=== PATIENT | female | born 1985 | race Caucasian/White ===

== ENCOUNTER → 2017-06-26 13:07 | Outpatient (CLI) | payer OTHER, SELFPAY ==
[2017-04-21 09:53] VITALS: BP 105/62; BMI 26.5
[2017-06-26 14:18] LABS: hCG Titer Quant., Serum 13279 mIU/mL (<9 non-preg)
== END ==
PROVIDERS: Nurse Practitioner Women's Health; Family Provider Family Medicine; PCP Family Medicine; Visit Provider Obstetrics & Gynecology
DX: N92.6 Irregular menstruation, unspecified (principal)
CPT/HCPCS: 36415; 84702

== ENCOUNTER → 2017-07-08 10:37 | Outpatient (CLI) | payer OTHER, SELFPAY ==
[2017-07-08 11:06] LABS: Absolute Lymphocyte Count 1.41 X10^3/ul (0.83-4.51); Absolute Neutrophil Count 3.9 X10^3/uL (2.0-7.7); Basophil# 0.02 X10^3/uL; Basophil% 0.3 % (0-1); Eosinophil# 0.03 X10^3/uL; Eosinophils% 0.5 % (0-5); Hematocrit 37.1 % (37-47); Hemoglobin 12.7 g/dl (12.0-15.0); Lymphocyte # 1.41 X10^3/ul (4.0); Lymphocyte % 24.5 % (19-41); Mean Corp Hgb Conc 34.2 g/gl (32-36); Mean Corpuscular Hgb 31.4 pg (27.0-32.0); Mean Corpuscular Volume 91.6 fL (81-99); Mean Platelet Vol. 10.6 fl (6.2-12.0); Monocyte# 0.37 X10^3/uL; Monocyte% 6.4 % (0-10); Neutrophil # 3.89 X10^3/uL (2.7-7.7); Neutrophil % 67.8 % (47-70); Platelet Count 194 K/mm3 (150-450); RBC Distribution Width CV 12.2 % (11.6-14.6); RBC Distribution Width SD 39.8 fl (35.1-43.9); Red Blood Count 4.05 M/mm3 (4.2-5.4); White Blood Count 5.8 K/mm3 (4.4-11.0)
[2017-07-08 11:07] LABS: POSITIVE COUNT NO; POSITIVE DIFFERENTIAL NO; POSITIVE MORPHOLOGY NO
[2017-07-08 12:37] LABS: HIV - WCH Non-Reactive (Nonreactive); Rubella IgG 58.6 IU/mL
[2017-07-08 19:15] LABS: Chlamydia Trachomatis by PCR Negative (Negative); Neisserai gonorrhoeae by PCR Negative (Negative)
[2017-07-08 19:16] LABS: Probe Check PASS; Sample Adequacy Control PASS; Specimen Processing Control PASS
[2017-07-09 17:02] LABS: HEPATITIS B SURFACE AG Negative (Negative)
[2017-07-10 07:08] LABS: Rapid Plasmin Reagin (RPR) NONREACTIVE (NONREACTIVE)
[2017-07-13 13:50] LABS: HPV APTIMA, High Risk Negative (Negative)
== END ==
PROVIDERS: Family Provider Family Medicine; PCP Family Medicine; Visit Provider Obstetrics & Gynecology
DX: Z34.81 Encounter for supervision of other normal pregnancy, first trimester (principal); Z12.4 Encounter for screening for malignant neoplasm of cervix; Z3A.00 Weeks of gestation of pregnancy not specified
CPT/HCPCS: 36415; 85025; 86592; 86703; 86762; 86850; 86900; 87077; 87086; 87088; 87186; 87340; 87491; 87591; 88175; G0145

== ENCOUNTER → 2017-10-08 07:47 | Outpatient (CLI) | payer OTHER, SELFPAY ==
--- NOTE | 2017-10-08 07:49 | US_ITS ---
STUDY: SECOND AND THIRD TRIMESTER OBSTETRICAL ULTRASOUND REASON FOR EXAM: Female, 32 years old. Routine survey. LMP: May 22, 2017. TECHNIQUE: Transabdominal PRIOR ULTRASOUND: None. FINDINGS: There is a single intrauterine fetus. The fetus is in a breech presentation. There is demonstrated cardiac activity with a heart rate of 156 bpm. There is a normal amniotic fluid volume. The largest amniotic fluid pocket measures 5.0 cm x 4.3 cm. The placenta is posterior in location and is not low lying. There are Grade 0 placental changes. The cervix measures 3.4 cm in length. The adnexal regions are not visualized. BIOMETRY: BPD: 4.81 cm: 20 weeks, 4 days HC: 17.92 cm: 20 weeks, 3 days AC: 15.85 cm: 20 weeks, 0 days FL: 3.16 cm: 19 weeks, 2 days CI: 74% FL/BPD: 66% FL/HC: FL/AC: 20% HC/AC: 1.13 age by current US: 20 weeks, 4 days. DINESH by current US: February 21, 2018. Estimated weight: 354 grams, +/- 52 grams, 79 %. Age by LMP: 9 weeks, 6 days. DINESH by LMP: February 26, 2018. ANATOMY: Gender: Female Cranium: Normal lateral ventricles. Normal choroid plexus. Normal cerebellum. Normal cisterna magna. Normal face, nose and lips. Chest: Normal 4-chamber heart. Abdomen/Pelvis: Normal diaphragm. Normal stomach. Normal abdominal wall. Normal cord insertion. Normal 3 vessel cord. Normal kidneys. Normal bladder. Spine: Normal cervical spine. Normal thoracic spine. Normal lumbar spine. Normal sacrum. Extremities: Normal bilateral upper extremities. Normal bilateral lower extremities. US/OB Anatomy Scan IMPRESSION: Single live intrauterine gestation with a mean gestational age of 20 weeks and 4 days. Electronically Signed: Truman Mandujano MD at 9:51 EDT Tel [phone], Service support ,
== END ==
PROVIDERS: Family Provider Family Medicine; PCP Family Medicine; Visit Provider Obstetrics & Gynecology
DX: Z34.81 Encounter for supervision of other normal pregnancy, first trimester (principal)
CPT/HCPCS: 76805

== ENCOUNTER → 2017-12-01 09:03 | Outpatient (CLI) | payer OTHER, SELFPAY ==
[2017-12-01 12:33] LABS: Absolute Lymphocyte Count 0.98 X10^3/ul (0.83-4.51); Absolute Neutrophil Count 4.8 X10^3/uL (2.0-7.7); Basophil# 0.01 X10^3/uL; Basophil% 0.2 % (0-1); Eosinophil# 0.03 X10^3/uL; Eosinophils% 0.5 % (0-5); Glucose Challenge Gest 1H 50g 92 mg/dL (70-140); Hematocrit 36.8 % (37-47); Hemoglobin 12.3 g/dl (12.0-15.0); Lymphocyte # 0.98 X10^3/ul (4.0); Lymphocyte % 15.6 % (19-41); Mean Corp Hgb Conc 33.4 g/gl (32-36); Mean Corpuscular Volume 95.8 fL (81-99); Mean Platelet Vol. 11.4 fl (6.2-12.0); Monocyte% 6.3 % (0-10); Neutrophil # 4.82 X10^3/uL (2.7-7.7); Neutrophil % 76.4 % (47-70); Platelet Count 185 K/mm3 (150-450); RBC Distribution Width SD 43.7 fl (35.1-43.9); Red Blood Count 3.84 M/mm3 (4.2-5.4); White Blood Count 6.3 K/mm3 (4.4-11.0)
[2017-12-01 12:35] LABS: POSITIVE COUNT NO; POSITIVE DIFFERENTIAL NO; POSITIVE MORPHOLOGY NO
== END ==
PROVIDERS: Family Provider Family Medicine; PCP Family Medicine; Visit Provider Nurse Practitioner Women's Health
DX: Z34.90 Encounter for supervision of normal pregnancy, unspecified, unspecified trimester (principal)
CPT/HCPCS: 82950; 85025; 86850; 86900

== ENCOUNTER → 2017-12-01 13:24 | Outpatient (CLI) | payer OTHER, SELFPAY ==
--- NOTE | 2017-12-01 13:27 | BI_ITS ---
MAMMOGRAPHY - UNILATERAL DIAGNOSTIC: RIGHT BREAST REASON FOR EXAM: Female, 32 years old. Swelling and erythema of the right breast. PERTINENT HISTORY: Non-contributory. TECHNIQUE: Digital unilateral breast keerthi (3D mammographic acquisition) in the CC and MLO projections. 2-D mediolateral oblique (MLO) and craniocaudad (CC) views of both breasts were obtained. CAD: Full Field Digital Mammography with Computer Added Detection was performed. COMPARISON: None. Baseline examination. FINDINGS: Breast Composition: The breasts are extremely dense, which lowers the sensitivity of mammography. There are no dominant masses or suspicious calcifications. Thickening of the periareolar skin region. No other significant abnormalities are identified. BI/DIAG MAMM W/CAD, UNILAT IMPRESSION: There is nonspecific thickening of the skin overlying the alveolar region. ASSESSMENT CATEGORY: BIRADS Category 2: Benign. A letter regarding these results will be sent to the patient by the facility within 30 days. Approximately 10% of breast cancers are not detected by mammography. A normal mammogram should not delay biopsy of a clinically suspicious abnormality. Electronically Signed: Truman Mandujano MD at 15:15 EDT Tel [phone], Service support ,
--- NOTE | 2017-12-01 13:27 | US_ITS ---
STUDY: ULTRASOUND BREAST - RIGHT REASON FOR EXAM: Female, 32 years old. Swelling and redness of the right breast. The patient is 28 weeks . TECHNIQUE: Axial and longitudinal images of the RIGHT breast were performed with a high resolution ultrasound transducer. COMPARISON: None. FINDINGS: RIGHT Breast: The lower half of the breast was examined by ultrasound. Dilated ducts are seen. No focal abscess or mass lesion is present. US/Breast Limited Unilateral IMPRESSION: Dilated subareolar ducts. Correlation with mammogram is recommended. ASSESSMENT CATEGORY: BIRADS Category 0: Incomplete. Need additional imaging evaluation. A letter regarding these results will be sent to the patient by the facility within 30 days. Electronically Signed: Truman Mandujano MD at 15:14 EDT Tel [phone], Service support ,
== END ==
PROVIDERS: Family Provider Family Medicine; PCP Family Medicine; Visit Provider Nurse Practitioner Women's Health
DX: N63.10 Unspecified lump in the right breast, unspecified quadrant (principal); N64.4 Mastodynia
CPT/HCPCS: 76642; 77061; 77065; G0279

== ENCOUNTER 2018-02-17 14:50 | Outpatient (CLI) | payer OTHER, SELFPAY ==
[2018-02-17 14:58] VITALS: BMI 33.3
[2018-02-17] MEDS: Lactated Ringers 1,000 ML 125 ML IV (15:10)
[2018-02-17] MEDS: Terbutaline 1 MG/ML Vial 0.25 MG SC (16:09)
--- NOTE | 2018-02-18 06:23 | OP.PCM_ITS ---
Problem List (1) Breech presentation Status: Acute Operative Report Date of Procedure: 02/17/18 Preprocedure diagnosis: Breech presentation Post procedure diagnosis: Vertex presentation Procedure: External cephalic version Surgeon: Marilyn Stone EBL: None Complications: None Anesthesia: None Special medications: Terbutaline Seizure details: The fetus was found to be in breech presentation informed by ultrasound. Patient had an IV in place, normal amniotic fluid, no contraindica tions to a vaginal delivery, and reactive nonstress test prior to the procedure. Patient was placed in the dorsal supine position after the terbutaline was given. Ultrasound gel was applied to the patient's abdomen and using constant upward pressure to elevate the buttocks out of the pelvic inlet constant pressure was applied to the buttocks and to the area behind the back of the neck and head to encourage a forward roll of the fetus. Constant pressure was applied and slowly the infant was converted to a vertex presentation. Bedside ultrasound was used to confirm vertex presentation and reassuring heart rate. Patient was replaced on the NST and monitored to assure reassuring status. No complications.
--- NOTE | 2018-02-20 03:49 | OB.TRI.NOTE ---
- Problem List (1) Breech presentation Status: Acute History of Present Illness Date of Service: 02/18/18 Was patient seen by the physician?: Yes Reason For Visit: VERSION Date of Service: 02/18/18 History of Present Illness: 32-year-old at 38 weeks presents with breech presentation. Patient was consented and counseled on has decided to proceed with external cephalic version for conversion of breech fetus. She denies any vaginal bleeding loss of fluid and admits good movement. She denies any regular contractions. She has had an ultrasound in the office that confirmed a normal JC. Allergies codeine Allergy (Intermediate, Verified 02/17/18 08:39) Swelling vomitting Review of Systems Constitutional: Denies: Fever, Malaise Eyes: Denies: Blurred vision, Vision Change HEENT: Denies: Head Aches, Visual Changes Cardiovascular: Denies: Chest Pain, Palpitations Respiratory: Denies: Cough, Shortness of Breath, Wheezing Gastrointestinal: Denies: Abdominal Pain, Diarrhea, Nausea, Vomiting Genitourinary: Denies: Dysuria, Hematuria Musculoskeletal: Denies: Joint Pain, Muscle pain Skin: Denies: Lesions, Rash Neurological: Denies: Blurred vision, Focal weakness, Headaches Psychiatric: Denies: Anxiety, Depression Endocrine: Denies: Heat/ Cold Intolerance Hematologic/ Lymphatic: Denies: Easy Bruising, Easy Bleeding Physical Exam General: Alert, Cooperative, No apparent distress HEENT: Atraumatic, Normocephalic. Negative for: Thyromegaly, Lymphadenopathy Cardiovascular: Regular rate Lungs: Normal air movement Abdomen: Soft, Non Tender, Gravid Neurological: Deep Tendon Reflexes 2+/4 and Symmetrical, Neuro grossly intact. Negative for: Clonus CELL ATTENDANT HELPER: Normal external genitalia. Negative for: Vulvar lesions Estimated gestational size: Appropriate for gestational size Presentation: Cephalic NST - FHR Rate Baby A Baseline: 140 Variability:: Moderate Accelerations:: 15 x 15 Decelerations:: None NST Reactive:: Yes FHR Category:: Category I Uterine Activity:: No regular Impression/Plan 32-year-old at 38 weeks presents for external cephalic version secondary to breech presentation Risks benefits and alternatives were discussed with the patient regarding external cephalic version and patient wishes to proceed
== END 2018-02-17 18:20 | disposition home or self-care (01) ==
LOC: WPOUT 14:56 → WP 14:57
PROVIDERS: Family Provider Family Medicine; PCP Family Medicine; Referring Provider Obstetrics & Gynecology; Visit Provider Obstetrics & Gynecology
DX: O32.1XX0 Maternal care for breech presentation, not applicable or unspecified (principal); Z3A.00 Weeks of gestation of pregnancy not specified
CPT/HCPCS: 36415; 59025; 59050; 59412; 76815; 86850; 86900; 90384; 96372; 99218; J7120; G0378; J2790

== ENCOUNTER 2018-03-05 06:55 | Inpatient (IN) | payer OTHER, SELFPAY ==
[2018-03-05] MEDS: Lactated Ringers 1,000 ML 50 ML IV ×3 (07:50→16:16)
[2018-03-05] MEDS: Oxytocin 30 units/NS 500 ml 30 UNITS/500 ML IV.SOLN IV (08:00)
[2018-03-05 08:06] VITALS: BMI 33.6
[2018-03-05 08:06] LABS: Hemoglobin 11.7 g/dl (12.0-15.0); Mean Corp Hgb Conc 32.5 g/gl (32-36); Mean Corpuscular Hgb 30.2 pg (27.0-32.0); Mean Platelet Vol. 11.4 fl (6.2-12.0); Platelet Count 191 K/mm3 (150-450); RBC Distribution Width CV 13.2 % (11.6-14.6); RBC Distribution Width SD 43.9 fl (35.1-43.9); Red Blood Count 3.87 M/mm3 (4.2-5.4); White Blood Count 5.2 K/mm3 (4.4-11.0)
[2018-03-05 08:09] LABS: Scan Indicated on CBC? Y/N NO
--- NOTE | 2018-03-05 08:31 | HP.PCM_ITS ---
- Problem List (1) Post-dates Status: Acute History and Physical Date of Admission: 03/05/18 Vital Signs 03/02/18 Height 5 ft 5 in 03/02/18 Weight: 203 lb 03/02/18 Body Mass Index (BMI) 33.7 03/02/18 Blood Pressure 118/74 Intake Visit Reasons: OB Routine Joint Terminal Attack Controller Required: No Is patient in pain?: No Allergies codeine Allergy (Intermediate, Verified 03/02/18 16:06) Swelling Medications vitamin,calcium,jzpldxwr-jckl-zvpik acid tablet 1 tab PO QDAY 04/21/17 [History Confirmed 03/02/18] Last Menstral Period: 04/21/17 Zika: Zika virus screening: Negative : No PFSH PFSH Family History Grandmother Diabetes Social History number of children: 1 current occupational status: employed current occupation: [employer] current occupational exposures/hazards: No Smoking Status: Never smoker second hand exposure: No alcohol intake: never substance use type: does not use caffeine: No what type of physical activity do you participate in: none seatbelt use: always do you feel safe at home: Yes additional social history: [facility] Pregancy History 2 Elective abortions Hx Para 1 Spontaneous abortions Hx # Term Pregnancies 1 Ectopic pregnancies Hx # Pregnancies Multiple births # of living children 1 Past Pregnancies Del. Date Name GA/Weeks Outcome Route Bth Weight Gen Labor Lgth Anesthesia Del [facility] Provider FOB 11/29/14 Ronald 42 live - full term 7 pounds 6 ounc Male epidural NE HPI OB Routine: Details: HELEN HERMOSILLO is a 32 year old who presents for routine OB visit. OB Visit DINESH Calculator Estimated Delivery Date 02/26/18 Based on Ultrasound Date 07/08/17 Current WG 41w 0d Number 1 Expected Delivery Route/Plan Specific Issue/Plans flu vaccine declined minichart given: yes tdap vaccine: given rhogam: given LARC form signed: declines labor support person: Bin pain management: epidural-did not take effect well last delivery cut cord/dad catch: no :yes PP control planned: mirena special requests: [] Initial Weight: 170 lb Date EGA Weight BP Urine Prot Glucose FHR FuHt Pres Mov CTX Dilation Effaced St Visit Note Provider Comments 08/05/17 10w 5d 170 lb (+0 oz) 94/59 175 no vb some mild cramping 09/02/17 14w 5d 169 lb 4 oz (-12 oz) 107/61 Trace Negative 160 Still Still with nausea. No VB, LOF MH 10/08/17 19w 6d 173 lb 6 oz (+3 lb 6 oz) 85/54 Negative Negative 160 no vb, cramping 10/29/17 22w 6d 179 lb 4 oz (+9 lb 4 oz) 101/59 Negative Negative 153 22 Active absent Doing well. No VB, LOF. 11/19/17 25w 6d 185 lb 2 oz (+15 lb 2 oz) 99/66 145 25 Active absent co right breast enlargement and redness of the right breast, she denies any lumps or other changes, no family history of breast cancer. no discharge 12/01/17 27w 4d 185 lb 6 oz (+15 lb 6 oz) 108/71 Trace Negative 158 27 Active absent Persistent right breast pain and redness. Finished keflex. No VB, LOF. Good FM 12/15/17 29w 4d 189 lb 4 oz (+19 lb 4 oz) 111/64 Negative Negative 153 29 Active absent Breasts still worker helper bilaterally but improved. Some heartburn. NO VB, LOF. 12/28/17 31w 3d 191 lb 4 oz (+21 lb 4 oz) 101/67 Negative Negative 165 33 Cephalic Active absent no vb lof good fm no regular ctx 01/12/18 33w 4d 193 lb 8 oz (+23 lb 8 oz) 122/68 Negative Negative 155 33 Breech Active absent no vb lof good fm no regular ctx 01/26/18 35w 4d 198 lb 2 oz (+28 lb 2 oz) 115/76 Negative Negative 150 35 Cephalic Active absent no vb lof good fm no regular ctx 02/03/18 36w 5d 201 lb 2 oz (+31 lb 2 oz) 96/65 Negative Negative 146 36 Cephalic Active absent No VB, LOF. Doing well. 02/10/18 37w 5d 201 lb (+31 lb) 112/71 Negative Negative 145 38 Cephalic Active absent 1.50 -3 Rare CTX. More pressure. No VB, LOF. 02/17/18 38w 5d 202 lb (+32 lb) 110/70 Negative Negative 140 39 Breech Active absent 1.5 no vb lof good fm no regular ctx 02/25/18 39w 6d 200 lb (+30 lb) 118/68 Negative Negative 150 40 Cephalic Active absent 1.5 no vb lof good fm no regular ctx 03/02/18 40w 4d 203 lb (+33 lb) 118/74 Negative Negative 150 41 Cephalic Active absent no vb lof good fm no regular ctx plan IOL 41 weeks Visit Notes Visit Date: 03/02/18 no vb lof good fm no regular ctx plan IOL 41 weeks Marilyn Stone MD on 03/05/18 Visit Date: 02/25/18 no vb lof good fm no regular ctx Marilyn Stone MD on 02/25/18 Visit Date: 02/17/18 no vb lof good fm no regular ctx Marilyn Stone MD on 02/17/18 Visit Date: 02/10/18 Rare CTX. More pressure. No VB, LOF. AAMIR Miller on 02/10/18 Visit Date: 02/03/18 No VB, LOF. Doing well. AAMIR Miller on 02/03/18 Visit Date: 01/26/18 no vb lof good fm no regular ctx Marilyn Stone MD on 01/26/18 Visit Date: 01/12/18 no vb lof good fm no regular ctx Marilyn Stone MD on 01/12/18 Visit Date: 12/28/17 no vb lof good fm no regular ctx Marilyn Stone MD on 12/28/17 Visit Date: 12/15/17 Breasts still worker helper bilaterally but improved. Some heartburn. NO VB, LOF. AAMIR Miller on 12/15/17 Visit Date: 12/01/17 Persistent right breast pain and redness. Finished keflex. No VB, LOF. Good FM AAMIR Miller on 12/01/17 Visit Date: 11/19/17 co right breast enlargement and redness of the right breast, she denies any lumps or other changes, no family history of breast cancer. no discharge Marilyn Stone MD on 11/19/17 Visit Date: 10/29/17 Doing well. No VB, LOF. GUY MillerC on 10/29/17 Visit Date: 10/08/17 no vb, cramping Marilyn Stone MD on 10/08/17 Visit Date: 09/02/17 Still with nausea. No VB, LOF GUY MillerC on 09/02/17 Still AAMIR Miller on 09/02/17 Visit Date: 08/05/17 no vb some mild cramping Marilyn Stone MD on 08/05/17 ACOG First Trimester First Trimester: Desire for , Alcohol, Tobacco Cessation, Illicit/Recreational Drug/Substance Use, Intimate Partner Violence, Barriers to care, Unstable Housing, Communication Barriers, Environmental/Work Hazards, Anticipated Course of Care, Toxoplasmosis Precations, Use of Any medications, Sexual activity, Exercise, Dental Care, Sauna/Hot tub use, Seat Belt use, Childbirth classes/Hospital facilities, , Travel, Indications for US and Screening for Aneuploidy Second Trimester Second Trimester: Signs and Symptoms of Labor, Selecting a care provider, Reproductive Life Planning, Care Planning, Tobacco Cessation, Depression/Anxiety and Intimate Partner Violence Third Trimester Third Trimester: Pain Management Plans, Labor support person(s), Immediate Larc, Movement Monitoring and Infant Feeding Yes ; discussed Trial of Labor after Counseling or discussed Circumcision preference Diagnostics Diagnostics Labs Blood Type O NEGATIVE 02/17/18 Antibody Screen NEGATIVE 02/17/18 Hct 36.8 % (37-47) L 12/01/17 Hgb 12.3 g/dl (12.0-15.0) 12/01/17 Glucose 1 Hr 50 gm 92 mg/dL (70-140) 12/01/17 Details: HIV: Urine Culture: Sequential Screen: NIPT Screen: ROS Const Reports system reviewed and no additional complaints, except as docu Card Reports system reviewed and no additional complaints, except as docu Resp Reports system reviewed and no additional complaints, except as docu GI Reports system reviewed and no additional complaints, except as docu, Reports nausea Reports system reviewed and no additional complaints, except as docu Musc Reports system reviewed and no additional complaints, except as docu Exam Const General: cooperative, healthy appearing, comfortable, anxious HENMT Head: normal to inspection Nose: external nose normal Face and sinus: normal facial exam Neck Neck: normal visual inspection, full ROM, no lymphadenopathy Thyroid: thyroid normal Chest Chest palpation & inspection: normal inspection of the chest Resp Effort & Inspection: normal respiratory effort GI Inspection: normal to inspection Palpation: soft, other (gravid uterus) Other: vertex and appropriate size for gestational age Other: Cervical Exam: 3 cm Extrem General: pedal edema Results [id number] Office Urine Glucose Negative Last Edit by Vanessa Mckeon on 03/02/18 16:07 Office Urine Protein Negative Last Edit by Vanessa Mckeon on 03/02/18 16:07 Assessment & Plan Problems 1. Post-term O48.0 2. Rh negative status during in third trimester O09.893 given at 28 weeks, given at ECV at 39 3. Group B Streptococcus urinary tract infection affecting in third trimester O23.43 pcn in labor 4. Nausea/vomiting in O21.9 phenergan reglan 5. Encounter for supervision of other normal in third trimester Z34.83 PRR EDD1 girl surprise PC Ronald Bin 6. Encounter for management of intrauterine contraceptive device (IUD), unspecified IUD management type Z30.431 Mirena 6 wk pp, auth done Plan movement and labor precautions reviewed. ACOG trimester education reviewed and updated. see problem list details for updated plan management information and see below for orders placed at this visit. GA appropriate handout given. plan IOL with pitocin, epidural PRN. AROM prn. gbs negative. Orders Orders: POC Urinalysis 2 Dip (Clinic) 03/02/18 Coding Level of Care Code OB Routine Diagnoses Post-term O48.0 Rh negative status during in third trimester O09.893 Trimester: third trimester Group B Streptococcus urinary tract infection affecting in third trimester O23.43 Trimester: third trimester Nausea/vomiting in O21.9 Encounter for supervision of other normal in third trimester Z34.83 Normal : other normal Trimester: third trimester Encounter for management of intrauterine contraceptive device (IUD), unspecified IUD management type Z30.431 Contraceptive encounter type: IUD management IUD management: unspecified
[2018-03-05] MEDS: fentaNYL-bupivacaine (epidural) 100 ML BAG EPIDURAL ×2 (11:59→16:15)
[2018-03-05] MEDS: Ondansetron 4 MG/2 ML Vial IV (13:08)
[2018-03-05] MEDS: Acetaminophen 325 MG Tablet PO (17:48)
--- NOTE | 2018-03-05 22:47 | PCM.OB.VAG ---
- Problem List (1) Post-dates Status: Acute Vaginal Delivery Maternal Presentation: Medically Indicated Induction iol postdates Method of Induction: Pitocin Amniotic Membrane Rupture Type: Artificial Amniotic Fluid Description: Moderate meconium Final DINESH: 02/26/18 Gestational age: 41 Weeks and 0 Days Date of Procedure: 03/05/18 Pre-Operative Diagnosis: iol postdates Post-Operative Diagnosis: same Surgery/ Procedure Performed: Spontaneous Vaginal Delivery Type of Anesthesia: Epidural Description of Procedure: Patient began pushing and delivered the head in the CELENA presentation. The head was delivered atraumatically and a loose nuchal cord x1 was identified and easily reduced over the 's head. The anterior and posterior shoulders delivered without complication followed by the rest of the and the infant was placed on the maternal abdomen. Delayed cord clamping was employed for approximately 60 seconds. Cord was clamped and cut and gentle traction was applied to the cord and the placenta delivered spontaneously immediately following it was noted to be intact with three-vessel cord. The perineum and vagina were inspected and noted to have no laceration. EBL was 100 cc. Patient and tolerated delivery well. Presentation: CELENA Placental Delivery Description: Spontaneous Placenta Disposition: [facility] Cord Vessel Description: 3 Vessels Cord Entanglement: Around neck x 1, loose Estimated Blood Loss: 100 A gender: Female Episiotomy Description: None Laceration: None Medications given after delivery: IV Pitocin Complications: None
[2018-03-05] MEDS: Oxytocin 30 units/NS 500 ml 30 UNITS/500 ML IV.SOLN 334 UNITS IV (22:50)
[2018-03-05] MEDS: Oxytocin 30 units/NS 500 ml 30 UNITS/500 ML IV.SOLN 167 UNITS IV (23:30)
[2018-03-06 00:16] VITALS: BP 105/56; PULSE 77; RESP 16; TEMP 37.2
[2018-03-06] MEDS: Naproxen 250 MG Tablet PO ×3 (02:11→21:31)
[2018-03-06 04:00] VITALS: BP 96/47; PULSE 66; RESP 15
--- NOTE | 2018-03-06 08:18 | PCM.PN.OB ---
Patient Problems: Active and Suspected Problems (Last Reviewed 03/02/18 @ 16:07 by Vanessa Mckeon) Post-dates (Acute) Subjective: doing well no complaints - Physical Exam General: Alert, Oriented x3 Vital Signs Temp Pulse Resp BP 98.9 F 66 15 96/47 L 03/06/18 00:16 03/06/18 04:00 03/06/18 04:00 03/06/18 04:00 Weight: 202 lb 6 oz Body Mass Index (BMI) 33.6 Intake and Output for Last 24 Hours 03/04/18 03/05/18 03/06/18 23:59 23:59 23:59 Intake Total 3306 / 3306 Output Total 650 / 650 Balance 2656 / 2656 Laboratory Tests Past 24 Hrs 03/05/18 07:50 Blood Type O NEGATIVE Antibody Screen POSITIVE H Antibody Identification ANTI-D Medical Necessity - Tobacco Use Smoking Status: Never smoker Assessment/Plan All Active Problems (Last Reviewed 03/02/18 @ 16:07 by Vanessa Mckeon) Post-dates (Acute) Contraception management (Acute) GBS (group B streptococcus) UTI complicating (Acute) Nausea/vomiting in (Acute) Supervision of normal (Acute) Rh negative status during (Acute) Asymptomatic bacteriuria during in first trimester (Resolved) Breech presentation (Resolved) s/p PPD # 1 1. routine post delivery care 2. breast feeding- support given 3. rh negative- rhogam PRN 4. rubella immune
--- NOTE | 2018-03-06 08:19 | DCINST_ITS ---
Discharge Diet: No Restrictions Discharge Activity: Return to Normal Activity, May not drive while taking narcotic pain medications., May Shower May resume sexual activity in: 4-6 weeks Call your doctor if your incision/area has: Continuous Slow Oozing, Sudden Increased Bleeding, Increased Pain/ Swelling, Increased Redness, Foul Smelling Discharge Additional Instructions: If you experience any of the following, contact your healthcare provider. * Bleeding that soaks a pad every hour for 2 hours * Fever 100.4 or higher * Unrelieved incision or abdominal pain * Swelling, redness, discharge or bleeding from your incision or episiotomy site * Your incision begins to separate * Problems urinating (including inability to urinate or burning while urinating). * Visual changes * Severe headache * Flu-like symptoms * Pain or redness in one of both of your breasts * Pain, warmth, tenderness or swelling in your legs, especially the calf area * Frequent nausea and vomiting * Symptoms of depression or anxiety If you experience any of the following, call 911 or go to the nearest Emergency Room. * Chest pain * Problems breathing * Seizure activity * Partial or complete paralysis of a body part, slurred speech, weakness or drooping of the face, or a sudden inability to walk or hold your balance Allergies/Adverse Reactions: Allergies codeine Allergy (Intermediate, Verified 03/02/18 16:06) Swelling vomitting Medications to take at Discharge vitamin,calcium,ipjpzgzi-ujso-quzuf acid tablet 1 tab PO QDAY 04/21/17 Please Follow Up With: Marilyn Stone MD - [phone] When: Call to make an appointment with your doctor in 6 weeks. If you had elevated Blood pressure or 4th degree laceration you will need to be seen in 2 weeks. Primary Care Physician: Tacos Wells MD [Primary Care Provider] - Test Results: Test results from this visit will be discussed in further detail at your follow- up appointment, if applicable.
--- NOTE | 2018-03-06 08:19 | PCM.DCVAG ---
Discharge Diet: No Restrictions Discharge Activity: Return to Normal Activity, May not drive while taking narcotic pain medications., May Shower May resume sexual activity in: 4-6 weeks Call your doctor if your incision/area has: Continuous Slow Oozing, Sudden Increased Bleeding, Increased Pain/ Swelling, Increased Redness, Foul Smelling Discharge Additional Instructions: If you experience any of the following, contact your healthcare provider. Bleeding that soaks a pad every hour for 2 hours Fever 100.4 or higher Unrelieved incision or abdominal pain Swelling, redness, discharge or bleeding from your incision or episiotomy site Your incision begins to separate Problems urinating (including inability to urinate or burning while urinating). Visual changes Severe headache Flu-like symptoms Pain or redness in one of both of your breasts Pain, warmth, tenderness or swelling in your legs, especially the calf area Frequent nausea and vomiting Symptoms of depression or anxiety If you experience any of the following, call 911 or go to the nearest Emergency Room. Chest pain Problems breathing Seizure activity Partial or complete paralysis of a body part, slurred speech, weakness or drooping of the face, or a sudden inability to walk or hold your balance Allergies/Adverse Reactions: Allergies codeine Allergy (Intermediate, Verified 03/02/18 16:06) Swelling vomitting Medications to take at Discharge vitamin,calcium,cznrdyzz-ftpt-xctgc acid tablet 1 tab PO QDAY 04/21/17 Please Follow Up With: Marilyn Stone MD - [phone] When: Call to make an appointment with your doctor in 6 weeks. If you had elevated Blood pressure or 4th degree laceration you will need to be seen in 2 weeks. Primary Care Physician: Tacos Wells MD [Primary Care Provider] - Test Results: Test results from this visit will be discussed in further detail at your follow-up appointment, if applicable.
[2018-03-06 10:47] VITALS: BP 102/72; PULSE 74; RESP 16; TEMP 36.6; O2SAT 98
[2018-03-06 12:53] VITALS: BP 98/58; PULSE 70; RESP 16; TEMP 36.6; O2SAT 97
[2018-03-06 16:08] VITALS: BP 100/65; PULSE 73; RESP 16; TEMP 36.3; O2SAT 97
[2018-03-06 20:00] VITALS: BP 111/56; PULSE 65; RESP 17
[2018-03-07 02:00] VITALS: PULSE 64; RESP 17
[2018-03-07 08:00] VITALS: BP 112/77; PULSE 74; RESP 16; TEMP 36.2
--- NOTE | 2018-03-07 11:20 | NURSING ---
discharge talk done pt verbalizes understanding pt denies need for any further infant or maternal care teaching
[2018-03-07 12:20] VITALS: BP 100/51; PULSE 70; RESP 16; TEMP 36.2
--- NOTE | 2018-03-07 12:52 | PCM.PN.OB ---
Patient Problems: Active and Suspected Problems (Last Reviewed 03/02/18 @ 16:07 by Vanessa Mckeon) Post-dates (Acute) Subjective: doing well no complaints - Physical Exam General: Alert, Oriented x3 Vital Signs Temp Pulse Resp BP Pulse Ox 97.2 F L 70 16 100/51 L 97 03/07/18 12:20 03/07/18 12:20 03/07/18 12:20 03/07/18 12:20 03/06/18 16:08 Oxygen Delivery Method Room Air Weight: 202 lb 6 oz Body Mass Index (BMI) 33.6 Intake and Output for Last 24 Hours 03/05/18 03/06/18 03/07/18 23:59 23:59 23:59 Intake Total 3306 / 3306 Output Total 650 / 650 Balance 2656 / 2656 Medical Necessity - Tobacco Use Smoking Status: Never smoker Assessment/Plan All Active Problems (Last Reviewed 03/02/18 @ 16:07 by Vanessa Mckeon) Post-dates (Acute) Contraception management (Acute) GBS (group B streptococcus) UTI complicating (Acute) Nausea/vomiting in (Acute) Supervision of normal (Acute) Rh negative status during (Acute) Asymptomatic bacteriuria during in first trimester (Resolved) Breech presentation (Resolved) s/p PPD # 2 1. routine post delivery care 2. breast feeding- support given 3. rh negative- rhogam PRN 4. rubella immune
--- NOTE | 2018-03-07 13:33 | NURSING ---
1325 dc to home; placed in car seat per parents
== END 2018-03-07 13:25 | disposition home or self-care (01) | DRG 806 ==
PROVIDERS: Admitting Provider Obstetrics & Gynecology; Family Provider Family Medicine; PCP Family Medicine; Referring Provider Obstetrics & Gynecology; Visit Provider Obstetrics & Gynecology
DX: O48.0 Post-term pregnancy (principal); O98.82 Other maternal infectious and parasitic diseases complicating childbirth; N39.0 Urinary tract infection, site not specified; B95.1 Streptococcus, group B, as the cause of diseases classified elsewhere; O77.0 Labor and delivery complicated by meconium in amniotic fluid; O69.81X0 Labor and delivery complicated by cord around neck, without compression, not applicable or unspecified; Z3A.41 41 weeks gestation of pregnancy; Z37.0 Single live birth
CPT/HCPCS: 59025; 59050; 85027; 86850; 86870; 86900; 99218; J7120; 90686; G0378; J2405

== ENCOUNTER → 2018-05-28 13:05 | Outpatient (CLI) | payer OTHER, SELFPAY ==
[2018-05-27 17:16] VITALS: BMI 28.3
--- NOTE | 2018-05-28 13:09 | RAD_ITS ---
STUDY: X-RAY - ABDOMEN/PELVIS REASON FOR EXAM: Female, 32 years old. Unable to locate IUD on physical exam. TECHNIQUE: Single AP view of the abdomen / pelvis. COMPARISON: None. FINDINGS: T-shaped IUD projects over the upper pelvis/sacrum. There is mild leftward tilt. There is an unremarkable bowel gas pattern. There is no demonstrated free abdominal air. The visualized liver, spleen and kidneys are grossly normal in size and morphology. Normal soft tissue structures. Normal visualized osseous structures. RAD/Abdomen Single View IMPRESSION: IUD identified in the upper pelvis with mild leftward tilt. Evaluation with CT or ultrasound may further clarify location. Electronically Signed: William Jim MD at 17:21 EST , Service support ,
== END ==
PROVIDERS: Family Provider Family Medicine; PCP Family Medicine; Referring Provider Obstetrics & Gynecology; Visit Provider Obstetrics & Gynecology
DX: T83.9XXA Unspecified complication of genitourinary prosthetic device, implant and graft, initial encounter (principal)
CPT/HCPCS: 74018

== ENCOUNTER → 2018-06-01 15:52 | Outpatient (CLI) | payer OTHER, SELFPAY ==
[2018-05-27 17:16] VITALS: BMI 28.3
--- NOTE | 2018-06-01 15:55 | US_ITS ---
STUDY: ULTRASOUND OF THE FEMALE PELVIS - COMPLETE REASON FOR EXAM: Female, 32 years old. IUD check, lost strength LMP: Unknown. TECHNIQUE: Transvaginal TECHNICAL QUALITY: Adequate. COMPARISON: None. FINDINGS: The uterus is anteverted and is in a midline position. The uterus measures 5.8 x 5.2 x 3.5 cm. Normal uterine cervix. The endometrium measures 2 mm in thickness, and is hyperechoic. There is no demonstrated endometrial mass. There is no demonstrated myometrial mass. I.U.D. - no IUD is seen in the uterus. The right ovary is visualized. The right ovary measures 2.8 x 2.1 x 1.2 cm. There is a right ovarian cyst measuring 1.2 x 1.6 x 1.1 cm. There is an echogenic focus of the right adnexa measuring 3 x 4 x 3 mm. There is normal arterial and normal venous vascularity. The left ovary is visualized. The left ovary measures 2.8 x 1.7 x 1.1 cm. There is no left ovarian cyst or ovarian mass. There is no visualized left adnexal mass or complex lesion. There is normal arterial and normal venous vascularity. There is no fluid in the cul-de-sac. The pre void volume of the bladder was 36 ml. Polycystic ovary disease: No. US/Transvaginal Non- IMPRESSION: There is no evidence of IUD within uterus. There is a right ovarian cyst measuring 1.2 x 1.6 x 1.1 cm. There is an echogenic focus of the right adnexa measuring 3 x 4 x 3 mm which is of unknown etiology or significance. Electronically Signed: Ananda Tristan MD at 21:20 EST , Service support ,
--- NOTE | 2018-06-01 15:55 | US_ITS ---
STUDY: ULTRASOUND OF THE FEMALE PELVIS - COMPLETE REASON FOR EXAM: Female, 32 years old. IUD check, lost strength LMP: Unknown. TECHNIQUE: Transvaginal TECHNICAL QUALITY: Adequate. COMPARISON: None. FINDINGS: The uterus is anteverted and is in a midline position. The uterus measures 5.8 x 5.2 x 3.5 cm. Normal uterine cervix. The endometrium measures 2 mm in thickness, and is hyperechoic. There is no demonstrated endometrial mass. There is no demonstrated myometrial mass. I.U.D. - no IUD is seen in the uterus. The right ovary is visualized. The right ovary measures 2.8 x 2.1 x 1.2 cm. There is a right ovarian cyst measuring 1.2 x 1.6 x 1.1 cm. There is an echogenic focus of the right adnexa measuring 3 x 4 x 3 mm. There is normal arterial and normal venous vascularity. The left ovary is visualized. The left ovary measures 2.8 x 1.7 x 1.1 cm. There is no left ovarian cyst or ovarian mass. There is no visualized left adnexal mass or complex lesion. There is normal arterial and normal venous vascularity. There is no fluid in the cul-de-sac. The pre void volume of the bladder was 36 ml. Polycystic ovary disease: No. US/Pelvic (Non ) IMPRESSION: There is no evidence of IUD within uterus. There is a right ovarian cyst measuring 1.2 x 1.6 x 1.1 cm. There is an echogenic focus of the right adnexa measuring 3 x 4 x 3 mm which is of unknown etiology or significance. Electronically Signed: Ananda Tristan MD at 21:20 EST , Service support ,
== END ==
PROVIDERS: Family Provider Family Medicine; PCP Family Medicine; Referring Provider Obstetrics & Gynecology; Visit Provider Obstetrics & Gynecology
DX: T83.9XXA Unspecified complication of genitourinary prosthetic device, implant and graft, initial encounter (principal)
CPT/HCPCS: 76830; 76856; 93976

== ENCOUNTER 2018-06-03 13:57 | Day surgery (SDC) | payer OTHER, SELFPAY ==
[2018-05-27 17:16] VITALS: BMI 28.3
[2018-06-03 14:22] LABS: Internal QC Validated? YES +Cl - CLEAR BKGD; Pregnancy, Urine Negative Negative
[2018-06-03 14:31] VITALS: BP 100/71; PULSE 79; RESP 14; TEMP 36.8; O2SAT 98; BMI 27.6
[2018-06-03 14:58] LABS: Hematocrit 41.5 % (37-47); Hemoglobin 13.7 g/dl (12.0-15.0); Mean Corpuscular Hgb 29.8 pg (27.0-32.0); Mean Corpuscular Volume 90.2 fL (81-99); Mean Platelet Vol. 10.6 fl (6.2-12.0); Platelet Count 205 K/mm3 (150-450); RBC Distribution Width SD 45.8 fl (35.1-43.9); Scan Indicated on CBC? Y/N NO; White Blood Count 5.3 K/mm3 (4.4-11.0)
--- NOTE | 2018-06-03 15:30 | FALS_PTH ---
PATIENT: HELEN HERMOSILLO LOC: [facility] U#:[id number] AGE/SX: 32/F ROOM: RE06/03/[address]: Dr. Marilyn Stone MD : 1985 BED: DIS: 06/03/2018 SPEC #: [id number] RECD: 06/04/18 07:00 STATUS: JOBY RAMIRO #: [id number] ARIANA: 06/03/18 15:[address]: Marilyn Stone DEPT: SURGICAL PATHOLOGY RECD BY: Sumeet Jimenez ENTERED: 06/04/18 10:11 SP TYPE: FALL TUBES OTHR DR: Dr. Tacos Wells MD Tissues: Fallopian tube Procedures: Surgery Specimen Level II HEADER OPERATION: Laparoscopic bilateral salpingectomy, removal IUD PRE-OP DIAGNOSIS: Malposition IUD, desire for sterilization TISSUE SUBMITTED: Bilateral fallopian tubes MICROSCOPIC DIAGNOSIS Right and left fallopian tubes, bilateral salpingectomies: Two complete cross sections of fallopian tubes with no pathologic change. AM:sp: 06/07/18 MICROSCOPIC DESCRIPTION Slides are reviewed. GROSS DESCRIPTION Received is one container labeled with the patient's name and designated bilateral fallopian tubes. The specimen consists of two tubular pieces of pink-mon soft tissue with the right identified with a suture. The fallopian tubes measures 6 cm in average length and 0.6 cm in average diameter. There is no mass lesion. Rubber Goods Cutter Finisher sections of each fallopian tube is submitted separately in 2 cassettes. AM:tomi 06/05/18 TC: 4 CPT: 67939 x2
--- NOTE | 2018-06-03 16:50 | OP.PCM_ITS ---
Problem List (1) Sterilization Status: Acute (2) IUD complication Status: Acute Qualifiers: Comment: suspect IUD expulsion- recommend abdominal xray and if not present recommend reinsertion- patient desires. 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 Bladder was drained of clear urine and SCDs were on preoperatively. Uterus was sounded and it was felt that at the time of sending there is uterine perforation and therefore attention was then paid to the abdominal portion of the procedure and the umbilicus was elevated with towel clamps and injected with Marcaine and after a 5 mm incision was made and the Veress needle was entered into the abdomen confirmed to be intra-abdominal with a low opening pressure of less than 5 mmHg. Abdomen was insufflated with CO2 gas and a 5 mm optical trocar was placed under direct visualization. A right and left lower quadrant 5 mm port were placed under direct visualization. The IUD was directly visualized to be lying on top of the omentum just superior to the uterus. this was removed easily through 1 of the port sites. Uterus was well visualized and bilateral fallopian tubes identified and bilateral tubes were elevated and transecting across the mesosalpinx and the attachment to the uterine corpus bilaterally the tubes were removed without complication. Excellent hemostasis of this area was noted. Fallopian tubes were removed through the lower port sites without complication. An acute uterine perforation was seen on the left fundal portion of the uterus. It was attempted to cauterize this with the LigaSure device and was unsuccessful and therefore Jenny and then the Kleppinger were used and finally FloSeal was required to obtain excellent hemostasis. The pressure was taken down to check and hemostasis was still noted. All instruments removed from the abdomen after gas was desufflated. Port sites were closed with 3-0 Monocryl Steri's and op sites were applied. All instruments removed from the vagina and patient was awoken and taken recovery in stable condition. Grafts/Implants Used: none - Complications Uterine perforation - Admit VTE Documentation VTE Present on Admission: No
--- NOTE | 2018-06-03 16:51 | DCINST_ITS ---
Discharge Diet: No Restrictions - Increase fluid intake for the next 48 hours. Discharge Activity: Return to Normal Activity, May Drive - when you are no longer taking narcotic pain medications., May Shower, May Take a Tub Bath - in 7 days Additional Activity Instructions:: Ambulate often the next week after surgery. Nothing in the vagina for 5 days. Call your doctor if your incision/area has: Continuous Slow Oozing, Sudden Increased Bleeding, Increased Pain/ Swelling, Increased Redness, Foul Smelling Discharge Call your doctor if you observe: Fever of 101 or Higher Allergies/Adverse Reactions: Allergies codeine Allergy (Intermediate, Verified 05/27/18 16:36) Swelling vomitting Medications to take at Discharge vitamin,calcium,xgdjezri-[id number] acid tablet 1 tab PO QDAY 04/21/17 breast pump See Dose Instructions .ROUTE .MEDSUPPLY #1 ea 03/12/18 Ibuprofen [Motrin] 600 mg PO Q6H PRN PRN #30 tablet 06/03/18 Naproxen [Naprosyn] 250 - 500 mg PO Q8H PRN PRN #30 tablet 06/03/18 Oxycodone HCl/Acetaminophen [Percocet 5-325] 1 - 2 tablet PO Q4H PRN PRN 7 Days #15 tablet 06/03/18 The following prescriptions were given: Oxycodone HCl/Acetaminophen [Percocet 5-325] 1 - 2 tablet PO Q4H PRN PRN 7 Days #15 tablet PRN Reason: Pain Ibuprofen [Motrin] 600 mg PO Q6H PRN PRN #30 tablet PRN Reason: Pain Naproxen [Naprosyn] 250 - 500 mg PO Q8H PRN PRN #30 tablet PRN Reason: MILD PAIN Primary Care Physician: Tacos Wells MD [Primary Care Provider] - Test Results: Test results from this visit will be discussed in further detail at your follow- up appointment, if applicable. Please Follow Up With: Marilyn Stone MD - [phone]
[2018-06-03] MEDS: Bupivacaine 0.25% 30 ML Vial (17:00)
[2018-06-03 17:58] VITALS: BP 100/71; BP 87/53; PULSE 60; RESP 16; TEMP 36.2; O2SAT 93
[2018-06-03 18:00] VITALS: BP 100/71; BP 86/50; PULSE 60; RESP 18; O2SAT 97
[2018-06-03 18:15] VITALS: BP 100/71; BP 89/55; PULSE 54; RESP 18; O2SAT 98
[2018-06-03 18:27] VITALS: BP 100/71; BP 92/58; PULSE 56; RESP 18; TEMP 36.2; O2SAT 99
[2018-06-03] MEDS: Ibuprofen 600 MG Tablet PO (18:51)
[2018-06-03 18:57] VITALS: BP 100/71
--- OUTSIDE RECORDS SUMMARY | 2018-08-08 08:49 | XMS RPT_ITS ---
:1985 Author Organization OHIP Support Name Relationship Address Phone [id number] Unavailable [address] + [place] [address] ATILIO HERMOSILLONCER Unavailable [address] + [place] [address] PNCB01 Unavailable [address] + [place] [address] BAY BIN Unavailable [address] + [place] [address] PNCB01 Unavailable [address] + [place] [address] BAY BIN Unavailable [address] + [place] [address] PNCB01 Unavailable [address] + [place] [address] BAY BIN Unavailable [address] + [place] [address] PNCB01 Unavailable [address] + [place] [address] PNCB01 Unavailable [address] + [place] [address] BAY BIN Unavailable [address] + [place] [address] PNCB01 Unavailable [address] + [place] [address] NELLIE HERMOSILLOER Unavailable [address] + [place] [address] IAN BOLTON Unavailable [address] + [place] [address] PNCB01 Unavailable [address] + [place] [address] BAY, BIN Unavailable [address] + [place] [address] VAHLE, IAN Unavailable [address] + [place] [address] PNCB01 Unavailable [address] + [place] [address] BAY, BIN Unavailable [address] + [place] [address] VAHLE, IAN Unavailable [address] + [place] [address] PNCB01 Unavailable [address] + [place] [address] BAY, BIN Unavailable [address] + [place] [address] VAHLE, IAN Unavailable [address] + [place] [address] PNCB01 Unavailable [address] + [place] [address] BAY, BIN Unavailable [address] + [place] [address] VAHLE, IAN Unavailable [address] + [place] [address] PNCB01 Unavailable [address] + [place] [address] VAHLE, IAN Unavailable [address] + [place] [address] PNCB01 Unavailable [address] + [place] [address] VAHLE, IAN Unavailable [address] + [place] [address] PNCB01 Unavailable [address] + [place] [address] BAY, BIN Unavailable [address] + [place] [address] VAHLE, IAN Unavailable [address] + [place] [address] PNCB01 Unavailable [address] + [place] [address] BIN HERMOSILLO Unavailable [address] + [place] [address] VAHLE IAN Unavailable [address] + [place] [address] PNCB01 Unavailable [address] + [place] [address] VAHLE, IAN Unavailable [address] + [place] [address] PNCB01 Unavailable [address] + [place] [address] VAHLE, IAN Unavailable [address] + [place] [address] PNCB01 Unavailable [address] + [place] [address] VAHLE, IAN Unavailable [address] + [place] [address] PNCB01 Unavailable [address] + [place] [address] VAHLE, IAN Unavailable [address] + [place] [address] PNCB01 Unavailable [address] + [place] [address] VAHLE, IAN Unavailable [address] + [place] [address] PNCB01 Unavailable [address] + [place] [address] VAHLE, IAN Unavailable [address] + [place] [address] PNCB01 Unavailable [address] + [place] [address] VAHLE, IAN Unavailable [address] + [place] [address] PNCB01 Unavailable [address] + [place] [address] VAHLE, IAN Unavailable [address] + [place] [address] PNCB01 Unavailable [address] + [place] [address] VAHLE IAN Unavailable [address] + [place] [address] PNCB01 Unavailable [address] + [place] [address] VAHLE, IAN Unavailable [address] + [place] [address] PNCB01 Unavailable [address] + [place] [address] VAHLE, IAN Unavailable [address] + [place] [address] PNCB01 Unavailable [address] + [place] [address] VAHLE, IAN Unavailable [address] + [place] [address] PNCB01 Unavailable [address] + [place] [address] VAHLE, IAN Unavailable [address] + [place] [address] PNCB01 Unavailable [address] + [place] [address] VAHLE, IAN Unavailable [address] + [place] [address] PNCB01 Unavailable [address] + [place] [address] VAHLE, IAN Unavailable [address] + [place] [address] PNCB01 Unavailable [address] + [place] [address] VAHLE, IAN Unavailable [address] + [place] [address] PNCB01 Unavailable [address] + [place] [address] VAHLE, IAN Unavailable [address] + [place] [address] PNCB01 Unavailable [address] + [place] [address] VAHLE, IAN Unavailable [address] + [place] [address] GRABR Unavailable [address] + [place] [address] RICKEY BOLTONA Unavailable [address] + [place] [address] GRABR Unavailable [address] + [place] [address] HOANG IAN Unavailable [address] + [place] [address] Care Team Providers Name Role Phone Marilyn Stone Attending Unavailable Marcanthony, Marilyn Referring Unavailable Wells, Tacos Primary Care Unavailable Marcanthony, Marilyn Attending Unavailable Wells, Tacos Referring Unavailable Wells, Tacos Primary Care Unavailable Marcanthony, Marilyn Attending Unavailable Wells, Tacos Referring Unavailable Wells, Tacos Primary Care Unavailable Marcanthony, Marilyn Attending Unavailable Marcanthony, Marilyn Referring Unavailable Wells, Tacos Primary Care Unavailable Marcanthony, Marilyn Consulting Unavailable Marcanthony, Marilyn Admitting Unavailable Marcanthony, Marilyn Attending Unavailable Marcanthony, Marilyn Referring Unavailable Wells, Tacos Primary Care Unavailable Marcanthony, Marilyn Consulting Unavailable Marcanthony, Marilyn Admitting Unavailable Marcanthony, Marilyn Attending Unavailable Marcanthony, Marilyn Referring Unavailable Wells, Tacos Primary Care Unavailable Marcanthony, Marilyn Consulting Unavailable Marcanthony, Marilyn Admitting Unavailable Marcanthony, Marilyn Attending Unavailable Marcanthony, Marilyn Referring Unavailable Wells, Tacos Primary Care Unavailable Marcanthony, Marilyn Consulting Unavailable Marcanthony, Marilyn Attending Unavailable Wells, Tacos Referring Unavailable Marcanthony, Marilyn Admitting Unavailable Marcanthony, Marilyn Attending Unavailable Marcanthony, Marilyn Referring Unavailable Wells, Tacos Primary Care Unavailable Marcanthony, Marilyn Attending Unavailable Wells, Tacos Referring Unavailable Marcanthony, Marilyn Attending Unavailable Wells, Tacos Referring Unavailable Marcanthony, Marilyn Attending Unavailable Marcanthony, Marilyn Referring Unavailable Wells, Tacos Primary Care Unavailable Marcanthony, Marilyn Consulting Unavailable Marcanthony, Marilyn Attending Unavailable Marcanthony, Marilyn Referring Unavailable Wells, Tacos Primary Care Unavailable Marcanthony, Marilyn Attending Unavailable Wells, Tacos Referring Unavailable Rylan, Sasha Attending Unavailable Wells, Tacos Referring Unavailable Rylan, Sasha Attending Unavailable Wells, Tacos Referring Unavailable Wells, Tacos Primary Care Unavailable Marcanthony, Marilyn Attending Unavailable Wells, Tacos Referring Unavailable Wells, Tacos Primary Care Unavailable Marcanthony, Marilyn Attending Unavailable Wells, Tacos Referring Unavailable Wells, Tacos Primary Care Unavailable Marcanthony, Marilyn Attending Unavailable Wells, Tacos Referring Unavailable Wells, Tacos Primary Care Unavailable Rylan, Sasha Attending Unavailable Wells, Tacos Referring Unavailable Wells, Tacos Primary Care Unavailable [place]ost[place], Sasha Attending Unavailable Wells, Tacos Primary Care Unavailable Rylan, Sasha Attending Unavailable Wells, Tacos Primary Care Unavailable Rylan, Sasha Attending Unavailable Wells, Tacos Referring Unavailable Wells, Tacos Primary Care Unavailable Rylan, Sasha Attending Unavailable Wells, Tacos Referring Unavailable Wells, Tacos Primary Care Unavailable Marcanthony, Marilyn Attending Unavailable Wells, Tacos Referring Unavailable Wells, Tacos Primary Care Unavailable Marcanthony, Marilyn Attending Unavailable Wells, Tacos Primary Care Unavailable Marcanthony, Marilyn Referring Unavailable Rylan, Sasha Attending Unavailable Wells, Tacos Referring Unavailable Wells, Tacos Primary Care Unavailable Marcanthony, Marilyn Attending Unavailable Wells, Tacos Referring Unavailable Wells, Tacos Primary Care Unavailable Marcanthony, Marilyn Attending Unavailable Marcanthony, Marilyn Referring Unavailable Wells, Tacos Primary Care Unavailable Marcanthony, Marilyn Attending Unavailable Marcanthony, Marilyn Referring Unavailable Wells, Tacos Primary Care Unavailable Marcanthony, Marilyn Consulting Unavailable Marcanthony, Marilyn Attending Unavailable Marcanthony, Marilyn Referring Unavailable Wells, Tacos Primary Care Unavailable Marcanthony, Marilyn Attending Unavailable Marcanthony, Marilyn Referring Unavailable Wells, Tcaos Primary Care Unavailable Marcanthony, Marilyn Attending Unavailable Marcanthony, Marilyn Referring Unavailable Wells, Tacos Primary Care Unavailable Marcanthony, Marilyn Attending Unavailable Wells, Tacos Referring Unavailable PROBLEMS PROBLEMS DATE TYPE CONDITION / CODE ATTENDING STATUS SOURCE 06/03/2018 Unknown G89.18 - Other acute Marcanthony, Active [place] postprocedural pain [facility] / G89.18(ICD-10) Hospital Repository 04/16/2018 Unknown Z97.5 - Presence of Marcanthony, Active [place] (intrauterine) [facility] contraceptive device Hospital / Z97.5(ICD-10) Repository 02/25/2018 Unknown O09.893 - Marcanthony, Active [place] Supervision of other [facility] high risk Hospital pregnancies, third Repository trimester / O09.893(ICD-10) 02/25/2018 Unknown O23.43 - Unspecified Marcanthony, Active [place] infection of urinary [facility] tract in , Hospital third trimester / Repository O23.43(ICD-10) 02/25/2018 Unknown O21.9 - Vomiting of Marcanthony, Active [place] , [facility] unspecified / Hospital O21.9(ICD-10) Repository 02/25/2018 Unknown Z34.83 - Encounter Marcanthony, Active [place] for supervision of [facility] other normal Hospital , third Repository trimester / Z34.83(ICD-10) 02/25/2018 Unknown Z30.431 - Encounter Marcanthony, Active [place] for routine checking [facility] Hospital contraceptive device Repository / Z30.431(ICD-10) 04/14/2018 Unknown O32.1XX0 - Maternal Marcanthony, Active [place] care for breech [facility] presentation, not Hospital applicable or Repository unspecified / O32.1XX0(ICD-10) 02/10/2018 Unknown Z3A.37 - 37 weeks RylanSasha stone Active [place] gestation of [facility] / Hospital Z3A.37(ICD-10) Repository 01/26/2018 Unknown Z3A.35 - 35 weeks Marcanthony, Active [place] gestation of [facility] / Hospital Z3A.35(ICD-10) Repository 01/12/2018 Unknown Z67.91 - Unspecified Marcanthony, Active [place] blood type, Rh [facility] negative / Hospital Z67.91(ICD-10) Repository 01/12/2018 Unknown B95.1 - Marcanthony, Active [place] Streptococcus, group [facility] B, as the cause of Hospital diseases classified Repository elsewhere / B95.1(ICD-10) 12/01/2017 Unknown Z34.90 - Encounter RylanSasha stone Active [place] for supervision of [facility] normal , Hospital unspecified, Repository unspecified trimester / Z34.90(ICD-10) 12/01/2017 Unknown Z23 - Encounter for Rylan, Sasha Active [place] immunization / Community Z23(ICD-10) Hospital Repository 12/01/2017 Unknown O09.899 - Rylan, Sasha Active [place] Supervision of other [facility] high risk Hospital pregnancies, Repository unspecified trimester / O09.899(ICD-10) 12/01/2017 Unknown N64.4 - Mastodynia / Rylan, Sasha Active [place] N64.4(ICD-10) [facility] Hospital Repository 10/08/2017 Unknown Z34.81 - Encounter Bertha, Active [place] for supervision of [facility] other normal Hospital , first Repository trimester / Z34.81(ICD-10) 10/08/2017 Unknown O09.891 - Marcanthony, Active [place] Supervision of other [facility] high risk Hospital pregnancies, first Repository trimester / O09.891(ICD-10) 10/08/2017 Unknown Z3A.19 - 19 weeks Marcanthony, Active [place] gestation of [facility] / Hospital Z3A.19(ICD-10) Repository 09/02/2017 Unknown Z3A.14 - 14 weeks Sasha Fagan Active [place] gestation of [facility] / Hospital Z3A.14(ICD-10) Repository 07/02/2017 Unknown N92.6 - Irregular Marcanthroxanna, Active [place] menstruation, [facility] unspecified / Hospital N92.6(ICD-10) Repository PROCEDURES PROCEDURES No Procedure Records FoundRESULTS RESULTS OPERATIVE REPORT Observed: 06/03/2018 Status: F Source: [place] 5:39 PM [facility] REPOSITORY [facility] Medical Records Department [address] [place] [address] Operative Report 06/03/18 1648 MR#: [id number] Acct: [id number] Name: HELEN HERMOSILLO Rep #: [id number] : 1985 32 From: Marilyn Stone MD PCP: Tacos Wells MD Status: REG [facility] Y Location: [place] [address] Problem List (1) Sterilization Status: Acute (2) IUD complication Status: Acute Qualifiers: Comment: suspect IUD expulsion- recommend abdominal xray and if not present recommend reinsertion- patient desires. Report of Operation Date of Procedure: 06/03/18 Pre-Operative Diagnosis: iud malposition desired sterilization Post-Operative Diagnosis: Same Surgery/Procedure Performed:: Laparoscopic IUD removal laparoscopic bilateral salpingectomy Description of Surgical Findings:: IUD found on top of the omentum and left superior fundal uterine perforation bilateral normal tubes and ovaries inspection manager: Rosita Morillo Type of Anesthesia:: General Special Medications: Jenny and FloSeal Specimen's removed: Tubes and IUD Drains: andrade Estimated Blood Loss (mL): 100 Fluids Replaced: Crystalloid Description of Procedure: Patient was taken in the operating room and was placed under general anesthesia was prepped and draped in normal sterile fashion in the dorsal lithotomy position. Bladder was drained of clear urine and SCDs were on preoperatively. Uterus was sounded and it was felt that at the time of sending there is uterine perforation and therefore attention was then paid to the abdominal portion of the procedure and the umbilicus was elevated with towel clamps and injected with Marcaine and after a 5 mm incision was made and the Veress needle was entered into the abdomen confirmed to be intra-abdominal with a low opening pressure of less than 5 mmHg. Abdomen was insufflated with CO2 gas and a 5 mm optical trocar was placed under direct visualization. A right and left lower quadrant 5 mm port were placed under direct visualization. The IUD was directly visualized to be lying on top of the omentum just superior to the uterus. this was removed easily through 1 of the port sites. Uterus was well visualized and bilateral fallopian tubes identified and bilateral tubes were elevated and transecting across the mesosalpinx and the attachment to the uterine corpus bilaterally the tubes were removed without complication. Excellent hemostasis of this area was noted. Fallopian tubes were removed through the lower port sites without complication. An acute uterine perforation was seen on the left fundal portion of the uterus. It was attempted to cauterize this with the LigaSure device and was unsuccessful and therefore Jenny and then the Kleppinger were used and finally FloSeal was required to obtain excellent hemostasis. The pressure was taken down to check and hemostasis was still noted. All instruments removed from the abdomen after gas was desufflated. Port sites were closed with 3-0 Monocryl Steri's and op sites were applied. All instruments removed from the vagina and patient was awoken and taken recovery in stable condition. Grafts/Implants Used: none - Complications Uterine perforation - Admit VTE Documentation VTE Present on Admission: No 06/03/18 6664 <Electronically signed by Marilyn Stone MD> Date Marilyn Stone MD CC: Tacos Wells MD; Marilyn Stone MD Signed DISCHARGE INSTRUCTION Observed: 06/03/2018 Status: F Source: [place] 4:51 PM [facility] REPOSITORY [facility] Medical Records Department [address] [place] [address] Instructions for Home/Discharge Instructions 06/03/18 1651 MR#: [id number] Acct: [id number] Name: HELEN HERMOSILLO Rep #: [id number] : 1985 32 From: Marilyn Stone MD PCP: Tacos Wells MD Status: REG SDC Discharge Diet: No Restrictions - Increase fluid intake for the next 48 hours. Discharge Activity: Return to Normal Activity, May Drive - when you are no longer taking narcotic pain medications., May Shower, May Take a Tub Bath - in 7 days Additional Activity Instructions:: Ambulate often the next week after surgery. Nothing in the vagina for 5 days. Call your doctor if your incision/area has: Continuous Slow Oozing, Sudden Increased Bleeding, Increased Pain/ Swelling, Increased Redness, Foul Smelling Discharge Call your doctor if you observe: Fever of 101 or Higher Allergies/Adverse Reactions: Allergies codeine Allergy (Intermediate, Verified 05/27/18 16:36) Swelling vomitting Medications to take at Discharge vitamin,calcium,gmbckldm-hzsm-xtivu acid tablet 1 tab PO QDAY 04/21/17 breast pump See Dose Instructions .ROUTE .MEDSUPPLY #1 ea 03/12/18 Ibuprofen [Motrin] 600 mg PO Q6H PRN PRN #30 tablet 06/03/18 Naproxen [Naprosyn] 250 - 500 mg PO Q8H PRN PRN #30 tablet 06/03/18 Oxycodone HCl/Acetaminophen [Percocet 5-325] 1 - 2 tablet PO Q4H PRN PRN 7 Days #15 tablet 06/03/18 The following prescriptions were given: Oxycodone HCl/Acetaminophen [Percocet 5-325] 1 - 2 tablet PO Q4H PRN PRN 7 Days #15 tablet PRN Reason: Pain Ibuprofen [Motrin] 600 mg PO Q6H PRN PRN #30 tablet PRN Reason: Pain Naproxen [Naprosyn] 250 - 500 mg PO Q8H PRN PRN #30 tablet PRN Reason: MILD PAIN Primary Care Physician: Tacos Wells MD [Primary Care Provider] - Test Results: Test results from this visit will be discussed in further detail at your follow-up appointment, if applicable. Please Follow Up With: Marilyn Stone MD - [phone] 06/03/18 5762 <Electronically signed by Marilyn Stone MD> Date Marilyn Stnoe MD CC: Tacos Wells MD Signed FALLOPIAN TUBES/STERILIZATION Observed: 06/03/2018 Status: F Source: [place] 3:30 PM [facility] REPOSITORY Patient: HELEN HERMOSILLO : 1985 (32/F) Acct Num: [id number] Phys: Marilyn Stone MD Unit Num: [id number] Loc: [facility] Specimen: [id number] Received: 06/04/18699 Spec Type: FALL TUBES TISSUES 1 TISSUES: Fallopian tube GROSS DESCRIPTION Received is one container labeled with the patient's name and designated bilateral fallopian tubes. The specimen consists of two tubular pieces of pink-mon soft tissue with the right identified with a suture. The fallopian tubes measures 6 cm in average length and 0.6 cm in average diameter. There is no mass lesion. Commercial Art Instructor sections of each fallopian tube is submitted separately in 2 cassettes. AM:sp 06/05/18 TC: 4 CPT: 60225 x2 HEADER OPERATION: Laparoscopic bilateral salpingectomy, removal IUD PRE-OP DIAGNOSIS: Malposition IUD, desire for sterilization TISSUE SUBMITTED: Bilateral fallopian tubes MICROSCOPIC DESCRIPTION Slides are reviewed. MICROSCOPIC DIAGNOSIS Right and left fallopian tubes, bilateral salpingectomies: Two complete cross sections of fallopian tubes with no pathologic change. AM:sp: 06/07/18 Signed Claude Hernandez DO 06/07/18 <signature on file> Performed By: #### JENNI #### [facility] [address] [place], [place], [id number] CBC-COMPLETE BLOOD CNT Collected: 06/03/2018 Status: F Source: [place] NO DIFF 2:45 PM [facility] REPOSITORY TYPE CODE TESTS RESULT OUT OF RANGE REFERENCE UNITS LAB L100.1000 4.4-11.0 K/mm3 Normal WBC 5.3 LAB L100.1200 4.2-5.4 M/mm3 Normal RBC 4.60 LAB L100.1300 12.0-15.0 g/dl Normal HGB 13.7 LAB L100.1400 37-47 % Normal HCT 41.5 LAB L100.1500 81-99 fL Normal MCV 90.2 LAB L100.1600 27.0-32.0 pg Normal MCH 29.8 LAB L100.1700 32-36 g/gl Normal MCHC 33.0 LAB L100.1810 11.6-14.6 % Normal RDW CV 14.0 LAB L100.1820 35.1-43.9 fl High RDW SD 45.8 LAB L100.1900 150-450 K/mm3 Normal PLT 205 LAB L100.2000 6.2-12.0 fl Normal MPV 10.6 Performed By: #### L100.0500, B101.0350 #### [facility] [address] [place], [place], [id number] TYPE AND SCREEN Collected: 06/03/2018 Status: F Source: [place] 2:45 PM [facility] REPOSITORY Order Comment: Reason for Type AND Screen/Red Cells: SURGERY TYPE CODE TESTS RESULT OUT OF RANGE REFERENCE UNITS LAB B10.0800 O Normal BLOOD TYPE GEL NEGATIVE LAB B100.4000 Normal Antibody NEGATIVE Screen Performed By: #### L100.0500, B101.8650 #### [facility] [address] [place], [place], [id number] ,URINE Collected: 06/03/2018 Status: F Source: [place] 2:10 PM [facility] REPOSITORY TYPE CODE TESTS RESULT OUT OF REFERENCE UNITS RANGE LAB L400.8000 Negative Normal HCGUQUAL Negative Result Comment: Very dilute urine specimens, as indicated by a low specific gravity, may not contain employment program representative levels of hCG. If is still suspected, a first morning urine specimen should be collected 48 hours later and tested. Performed By: #### L400.7600 #### [facility] [address] [place], [address] PELVIC (NON ) Observed: 06/01/2018 Status: F Source: [place] 3:55 PM [facility] REPOSITORY [facility] Imaging Services [address] [place] [address] Pelvic (Non ) MR#: [id number] Acct: [id number] Name: HELEN HERMOSILLO Rep #: [id number] : 1985 F 32 From: Ananda Tristan MD PCP: Tacos Wells MD Status: REG CLI Study: Pelvic (Non ) Date of Exam: 06/01/18 Exam# [id number] Ordering Dr: Marilyn Stone MD STUDY: ULTRASOUND OF THE FEMALE PELVIS - COMPLETE REASON FOR EXAM: Female, 32 years old. IUD check, lost strength LMP: Unknown. TECHNIQUE: Transvaginal TECHNICAL QUALITY: Adequate. COMPARISON: None. FINDINGS: The uterus is anteverted and is in a midline position. The uterus measures 5.8 x 5.2 x 3.5 cm. Normal uterine cervix. The endometrium measures 2 mm in thickness, and is hyperechoic. There is no demonstrated endometrial mass. There is no demonstrated myometrial mass. I.U.D. - no IUD is seen in the uterus. The right ovary is visualized. The right ovary measures 2.8 x 2.1 x 1.2 cm. There is a right ovarian cyst measuring 1.2 x 1.6 x 1.1 cm. There is an echogenic focus of the right adnexa measuring 3 x 4 x 3 mm. There is normal arterial and normal venous vascularity. The left ovary is visualized. The left ovary measures 2.8 x 1.7 x 1.1 cm. There is no left ovarian cyst or ovarian mass. There is no visualized left adnexal mass or complex lesion. There is normal arterial and normal venous vascularity. There is no fluid in the cul-de-sac. The pre void volume of the bladder was 36 ml. Polycystic ovary disease: No. US/Pelvic (Non ) IMPRESSION: There is no evidence of IUD within uterus. There is a right ovarian cyst measuring 1.2 x 1.6 x 1.1 cm. There is an echogenic focus of the right adnexa measuring 3 x 4 x 3 mm which is of unknown etiology or significance. Electronically Signed: Ananda Tristan MD at 21:20 EST , Service support , CC: aTcos Wells MD; Marilyn Stone MD Hot Air Furnace Installer Repairer: Signed TRANSVAGINAL Observed: 06/01/2018 Status: F Source: EXET[place] NON- 3:55 PM [facility] REPOSITORY [facility] Imaging Services [address] [place] [address] Transvaginal Non- MR#: [id number] Acct: [id number] Name: HELEN HERMOSILLO Rep #: [id number] : 1985 F 32 From: Ananda Tristan MD PCP: Tacos Wells MD Status: REG CLI Study: Transvaginal Non- Date of Exam: 06/01/18 Exam# [id number] Ordering Dr: Marilyn Stone MD STUDY: ULTRASOUND OF THE FEMALE PELVIS - COMPLETE REASON FOR EXAM: Female, 32 years old. IUD check, lost strength LMP: Unknown. TECHNIQUE: Transvaginal TECHNICAL QUALITY: Adequate. COMPARISON: None. FINDINGS: The uterus is anteverted and is in a midline position. The uterus measures 5.8 x 5.2 x 3.5 cm. Normal uterine cervix. The endometrium measures 2 mm in thickness, and is hyperechoic. There is no demonstrated endometrial mass. There is no demonstrated myometrial mass. I.U.D. - no IUD is seen in the uterus. The right ovary is visualized. The right ovary measures 2.8 x 2.1 x 1.2 cm. There is a right ovarian cyst measuring 1.2 x 1.6 x 1.1 cm. There is an echogenic focus of the right adnexa measuring 3 x 4 x 3 mm. There is normal arterial and normal venous vascularity. The left ovary is visualized. The left ovary measures 2.8 x 1.7 x 1.1 cm. There is no left ovarian cyst or ovarian mass. There is no visualized left adnexal mass or complex lesion. There is normal arterial and normal venous vascularity. There is no fluid in the cul-de-sac. The pre void volume of the bladder was 36 ml. Polycystic ovary disease: No. US/Transvaginal Non- IMPRESSION: There is no evidence of IUD within uterus. There is a right ovarian cyst measuring 1.2 x 1.6 x 1.1 cm. There is an echogenic focus of the right adnexa measuring 3 x 4 x 3 mm which is of unknown etiology or significance. Electronically Signed: Ananda Tristan MD at 21:20 EST , Service support , CC: Tacos Wells MD; Marilyn Stone MD Hot Air Furnace Installer Repairer: Signed ABDOMEN SINGLE VIEW Observed: 05/28/2018 Status: F Source: EXETER 1:09 PM [facility] REPOSITORY [facility] Imaging Services [address] [place] [address] Abdomen Single View MR#: [id number] Acct: [id number] Name: HELEN HERMOSILLO Rep #: [id number] : 1985 F 32 From: William Jim MD PCP: Tacos Wells MD Status: REG CLI Study: Abdomen Single View Date of Exam: 05/28/18 Exam# [id number] Ordering Dr: Marilyn Stone MD STUDY: X-RAY - ABDOMEN/PELVIS REASON FOR EXAM: Female, 32 years old. Unable to locate IUD on physical exam. TECHNIQUE: Single AP view of the abdomen / pelvis. COMPARISON: None. FINDINGS: T-shaped IUD projects over the upper pelvis/sacrum. There is mild leftward tilt. There is an unremarkable bowel gas pattern. There is no demonstrated free abdominal air. The visualized liver, spleen and kidneys are grossly normal in size and morphology. Normal soft tissue structures. Normal visualized osseous structures. RAD/Abdomen Single View IMPRESSION: IUD identified in the upper pelvis with mild leftward tilt. Evaluation with CT or ultrasound may further clarify location. 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 [place] [address] OFFICE VISIT Date of Service: 05/27/18 MR#: [id number] Acct: [id number] Name: HELEN HERMOSILLO Rep #: [id number] : 1985 Provider: Marilyn Stone MD Age/Sex: 32/F Location: [facility] [place] Status: Signed Intake Vital Signs05/27/18 Body Mass Index (BMI) 28.3 05/27/18 Height 5 ft 5 in 05/27/18 Weight: 180 lb 05/27/18 Body Mass Index (BMI) 29.9 01/10/19 Blood Pressure 124/80 H Intake Visit Reasons: 6 WEEK FU IUD Chief Complaint: 6w string check Measurement And Verification Engineer Required: No Is patient in pain?: No Allergies codeine Allergy (Intermediate, Verified 05/27/18 16:36) Swelling Medications vitamin,calcium,tttbupzl-rrax-jdrdw acid tablet 1 tab PO QDAY 04/21/17 [History Confirmed 04/16/18] breast pump See Dose Instructions .ROUTE .MEDSUPPLY #1 ea 03/12/18 [Rx Confirmed 04/16/18] Is last menstrual period known: No Post menopausal: No Patient : No : Yes [facility] Family History Grandmother Diabetes Social History number of children: 2 current occupational status: employed current occupation: [employer] current occupational exposures/hazards: No Smoking Status: Never smoker second hand exposure: No alcohol intake: never substance use type: does not use caffeine: No what type of physical activity do you participate in: none seatbelt use: always do you feel safe at home: Yes additional social history: [employer] Al[employer] HPI 6 WEEK FU IUD: Details: HELEN HERMOSILLO is a 32 year old who presents for iud check. bedside ultrasound done and no IUD seen. she denies seeing it pass. she had a menses 2 weeks ago. she hasn't been sexually active in 72 hours. Pregancy History 2 Elective abortions Hx Para 2 Spontaneous abortions Past Pregnancies Del. DateName GA/Weeks Outcome Route Bth WeighInfant GeLabor LgtAnesthesiDel LocatProvider FOB t n h a n Delivery Date: 11/29/14 No notes to display Delivery Date: On 03/10/18 @ 08:15 Janette Stevens Post dates. ROS Cardio Card: Denies chest pain Resp Resp: Denies dyspnea or cough GI GI: Reports as per HPI; denies vomiting, nausea, abdominal pain or constipation : Reports as per HPI; denies urinary urgency, vaginal discharge, urinary frequency, vaginal itching, vaginal odor, vaginal dryness, urinary incontinence, urinary hesitancy, difficulty urinating or painful urination Exam Const General: cooperative, healthy appearing, comfortable, no acute distress, well developed Nutritional Appearance: average body habitus Orientation: alert HENMT Head: normal to inspection, normocephalic Neck Neck: normal visual inspection, trachea midline Thyroid: thyroid normal Resp Effort AND Inspection: normal respiratory effort GI Inspection: normal to inspection, non-distended Palpation: soft, no hepatosplenomegaly General: bladder normal to palpation External Female Exam: normal external appearance, normal appearance of the urethra Urethra: normal appearance of the urethra, normal palpation, no discharge Speculum Exam - Vagina: normal appearance of the vagina, normal vaginal discharge Speculum Exam - Cervix: normal appearance of the cervix, nontender Bimanual Exam- Vagina AND Uterus: bladder normal to palpation, No cervical tenderness, normal bimanual exam, uterine size normal, uterine shape normal, uterine mobility normal, uterine consistency normal, normal cervical palpation, uterus non-tender Bimanual Exam- Adnexa, other: normal adnexae, adnexae mobile, no adnexal masses, pelvic support normal Pelvic Support: normal Skin General: no rashes or lesions noted Assessment AND Plan Problems 1. Displacement of intrauterine contraceptive device, initial encounter T83.32XA suspect IUD expulsion- recommend abdominal xray and if not present recommend reinsertion- patient desires. Plan suspect IUD expulsion- recommend abdominal xray and if not present recommend reinsertion- patient desires. Orders Orders: Coding Level of Care Code Off vis,est,level 3 Diagnoses Displacement of intrauterine contraceptive device, initial encounter T83.32XA Device complication type: mechanical Mechanical complication type: displacement Encounter type: initial encounter 05/28/18 0323 <Electronically signed by Marilyn Stone MD> Date Marilyn Stone MD Cosigner Signature: Date (if applicable) CC: SALES REPRESENTATIVE RAW F[employer]ERS OFFICE VISIT Observed: 04/16/2018 Status: F Source: [place] REPORT 2:18 PM [facility] [place] [address] [place] [address] OFFICE VISIT Date of Service: 04/16/18 MR#: [id number] Acct: [id number] Name: HELEN HERMOSILLO Rep #: [id number] : 1985 Provider: Marilyn Stone MD Age/Sex: 32/F Location: [facility] [place] Status: Signed Intake Vital Signs04/16/18 Height 5 ft 5 in 04/16/18 Weight: 170 lb 6 oz 04/16/18 Body Mass Index (BMI) 28.3 04/16/18 Blood Pressure 112/78 Intake Visit Reasons: 6 WK AND IUD INSERT Measurement And Verification Engineer Required: No Is patient in pain?: No Allergies codeine Allergy (Intermediate, Verified 04/16/18 11:57) Swelling Medications vitamin,calcium,cwbesecz-pjax-tlpgt acid tablet 1 tab PO QDAY 04/21/17 [History Confirmed 04/16/18] breast pump See Dose Instructions .ROUTE .MEDSUPPLY #1 ea 03/12/18 [Rx Confirmed 04/16/18] : Yes PFSH Family History Grandmother Diabetes Social History number of children: 2 current occupational status: employed current occupation: [employer] current occupational exposures/hazards: No Smoking Status: Never smoker second hand exposure: No alcohol intake: never substance use type: does not use caffeine: No what type of physical activity do you participate in: none seatbelt use: always do you feel safe at home: Yes additional social history: [facility]ly [facility] Pregancy History 2 Elective abortions Hx Para 2 Spontaneous abortions Past Pregnancies Del. DateName GA/Weeks Outcome Route Bth WeighInfant GeLabor LgtAnesthesiDel LocatProvider FOB t n h a n Delivery Date: 11/29/14 No notes to display Delivery Date: On 03/10/18 @ 08:15 Janette Stevens Post dates. Depression Screen PHQ-2/9 PHQ-2 Over the last 2 weeks, how often have you been bothered by any of the following problems? 1. Little interest or pleasure in doing things: not at all 2. Feeling down, depressed, or hopeless: not at all Total score: 0 If score is 2 or greater, continue Source: Developed by Drs. Demetri Paulino, Nicole Ozuna, Tacho Monge and colleagues, with an educational chana from [employer]. Scoring: Total Score Depression Severity Action 1-4 Minimal depression No action needed 5-9 Mild depression Repeat PHQ-9 at follow up 10-14 Moderate depression Make tx plan,consider counseling, fup, prescription Post HPI 6 WK AND IUD INSERT: Details: HELEN HERMOSILLO is a 32 year old who presents for her post visit. Feeding: Breast Menses resumed: No Wenden since delivery: No Emotional Support: Yes Last Pap:: 2017 up to Office Procedures Liletta IUD IUD GC/Chlamydia:: not done Test: Yes declined Consent Signed: Yes Time out checklist: patient, procedure, site marked/identified, positioning of patient, supplies available, allergies confirmed, team agrees on procedure IUD: Yes Liletta Time out time: 12:10 Details: Sign in Communication: Completed Sign out documentation: Completed The uterus sounded to 8 cm. After prepping the cervix with betadine and using sterile technique, the cervix was grasped with a single tooth tenaculum and the IUD was inserted without difficulty and the string was cut to 3cm from the external os of the cervix. All instruments were removed from the vagina and there was an increase in bright read bleedig upon removal on dowel setting machine operator whch then stopped. bedside ultrasound was done the liletta was in the lower uterine segment so it was replaced with the same sterile technique usinga new deice and dowel setting machine operator. us done and confirmed to be in the correct location. Procedure Summary: patient tolerated the procedure well without complication. levonorgestrel 20 mcg/24 hr (5 years) intrauterine device 1 insert Intrauterine ONCE IUD Details: Sign in Communication: Completed Sign out documentation: Completed The uterus sounded to [] cm. After prepping the cervix with betadine and using sterile technique, the cervix was grasped with a single tooth tenaculum and the IUD was inserted without difficulty and the string was cut to 3cm from the external os of the cervix. All instruments were removed from the vagina and excellent hemostasis was noted. Procedure Summary: patient tolerated the procedure well without complication. Office Meds levonorgestrel Performing Provider: Marilyn Stone MD Administered by: Aury Stone on 04/16/18 12:06 Dose Route Admin Location Lot Number Expiration Date NDC Human Capital Manager 1 insert Intrauterine [facility] [id number] 01/15/22 [id number] [employer] Assessment AND Plan Problems 1. care and examination Z39.2 Plan Cervical cancer screening: up to date Contraceptive plans: iud placed Complications: none Follow up for annual exams or sooner if indicated. Orders Orders: Medications Discontinued: levonorgestrel Discontinued Reason: Office M1 insert Intrauterine ONCE 1 ea 0RF Z97.5 edication has been Documented as given Coding Level of Care Code No Charge Diagnoses care and examination Z39.2 Additional Codes IUD (28585) 04/16/18 1418 <Electronically signed by Marilyn Stone MD> Date Marilyn Stone MD Cosign Signature: Date (if applicable) CC: DISCHARGE INSTRUCTION Observed: 03/06/2018 Status: F Source: EXETER 8:19 AM [facility] REPOSITORY [facility] Medical Records Department [address] [place] [address] Instructions for Home/Discharge Instructions 03/06/18818 MR#: [id number] Acct: [id number] Name: HELEN HERMOSILLO Rep #: [id number] : 1985 32 From: Marilyn Stone MD PCP: Tacos Wells MD Status: ADM IN Discharge Diet: No Restrictions Discharge Activity: Return to Normal Activity, May not drive while taking narcotic pain medications., May Shower May resume sexual activity in: 4-6 weeks Call your doctor if your incision/area has: Continuous Slow Oozing, Sudden Increased Bleeding, Increased Pain/ Swelling, Increased Redness, Foul Smelling Discharge Additional Instructions: If you experience any of the following, contact your healthcare provider. * Bleeding that soaks a pad every hour for 2 hours * Fever 100.4 or higher * Unrelieved incision or abdominal pain * Swelling, redness, discharge or bleeding from your incision or episiotomy site * Your incision begins to separate * Problems urinating (including inability to urinate or burning while urinating). * Visual changes * Severe headache * Flu-like symptoms * Pain or redness in one of both of your breasts * Pain, warmth, tenderness or swelling in your legs, especially the calf area * Frequent nausea and vomiting * Symptoms of depression or anxiety If you experience any of the following, call 911 or go to the nearest Emergency Room. * Chest pain * Problems breathing * Seizure activity * Partial or complete paralysis of a body part, slurred speech, weakness or drooping of the face, or a sudden inability to walk or hold your balance Allergies/Adverse Reactions: Allergies codeine Allergy (Intermediate, Verified 03/02/18 16:06) Swelling vomitting Medications to take at Discharge vitamin,calcium,mwzkerhh-kbxl-eykjf acid tablet 1 tab PO QDAY 04/21/17 Please Follow Up With: Marilyn Stone MD - [phone] When: Call to make an appointment with your doctor in 6 weeks. If you had elevated Blood pressure or 4th degree laceration you will need to be seen in 2 weeks. Primary Care Physician: Tacos Wells MD [Primary Care Provider] - Test Results: Test results from this visit will be discussed in further detail at your follow-up appointment, if applicable. 03/06/18 0819 <Electronically signed by Marilyn Stone MD> Date Marilyn Stone MD CC: Tacos Wells MD OPERATIVE REPORT Observed: 03/05/2018 Status: F Source: EXETER 10:49 PM [facility] REPOSITORY [facility] Medical Records Department [address] [place] [address] Operative Report 03/05/18 2247 MR#: [id number] Acct: [id number] Name: HELEN HERMOSILLO Rep #: [id number] : 1985 32 From: Marilyn Stone MD PCP: Tacos Wells MD Status: ADM IN Location: IE084-5 - Problem List (1) Post-dates Status: Acute Vaginal Delivery Maternal Presentation: Medically Indicated Induction iol postdates Method of Induction: Pitocin Amniotic Membrane Rupture Type: Artificial Amniotic Fluid Description: Moderate meconium Final DINESH: 02/26/18 Gestational age: 41 Weeks and 0 Days Date of Procedure: 03/05/18 Pre-Operative Diagnosis: iol postdates Post-Operative Diagnosis: same Surgery/ Procedure Performed: Spontaneous Vaginal Delivery Type of Anesthesia: Epidural Description of Procedure: Patient began pushing and delivered the head in the CELENA presentation. The head was delivered atraumatically and a loose nuchal cord x1 was identified and easily reduced over the infant's head. The anterior and posterior shoulders delivered without complication followed by the rest of the and the was placed on the maternal abdomen. Delayed cord clamping was employed for approximately 60 seconds. Cord was clamped and cut and gentle traction was applied to the cord and the placenta delivered spontaneously immediately following it was noted to be intact with three-vessel cord. The perineum and vagina were inspected and noted to have no laceration. EBL was 100 cc. Patient and infant tolerated delivery well. Presentation: CELENA Placental Delivery Description: Spontaneous Placenta Disposition: [facility] Cord Vessel Description: 3 Vessels Cord Entanglement: Around neck x 1, loose Estimated Blood Loss: 100 Infant A gender: Female Episiotomy Description: None Laceration: None Medications given after delivery: IV Pitocin Complications: None 03/05/18 2249 <Electronically signed by Marilyn Stone MD> Date Marilyn Stone MD CC: Tacos Wells MD; Marilyn Stone MD Signed HISTORY AND PHYSICAL Observed: 03/05/2018 Status: F Source: EXETER EXAM 8:31 AM [facility] REPOSITORY [facility] Medical Records Department [address] [place] [address] History and Physical 03/05/18 0830 MR#: [id number] Acct: [id number] Name: HELEN HERMOSILLO Rep #: [id number] : 1985 32 From: Marilyn Stone MD PCP: Tacos Wells MD Status: ADM IN Y Location: [address] - Problem List (1) Post-dates Status: Acute History and Physical Date of Admission: 03/05/18 Vital Signs 03/02/18 Height 5 ft 5 in 03/02/18 Weight: 203 lb 03/02/18 Body Mass Index (BMI) 33.7 03/02/18 Blood Pressure 118/74 Intake Visit Reasons: OB Routine Measurement And Verification Engineer Required: No Is patient in pain?: No Allergies codeine Allergy (Intermediate, Verified 03/02/18 16:06) Swelling Medications vitamin,calcium,vqadopac-hevs-ehzcu acid tablet 1 tab PO QDAY 04/21/17 [History Confirmed 03/02/18] Last Menstral Period: 04/21/17 Zika: Zika virus screening: Negative : No PFSH PFSH Family History Grandmother Diabetes Social History number of children: 1 current occupational status: employed current occupation: [employer] current occupational exposures/hazards: No Smoking Status: Never smoker second hand exposure: No alcohol intake: never substance use type: does not use caffeine: No what type of physical activity do you participate in: none seatbelt use: always do you feel safe at home: Yes additional social history: Formerly [facility] Pregancy History 2 Elective abortions Hx Para 1 Spontaneous abortions Hx # Term Pregnancies 1 Ectopic pregnancies Hx # Pregnancies Multiple births # of living children 1 Past Pregnancies Del. Date Name GA/Weeks Outcome Route Bth Weight Infant Gen Labor Lgth Anesthesia Del [facility] Provider FOB 11/29/14 Ronald 42 live - full term 7 pounds 6 ounc Male epidural NE HPI OB Routine: Details: HELEN HERMOSILLO is a 32 year old who presents for routine OB visit. OB Visit DINESH Calculator Estimated Delivery Date 02/26/18 Based on Ultrasound Date 07/08/17 Current WG 41w 0d Number 1 Expected Delivery Route/Plan Specific Issue/Plans flu vaccine declined minichart given: yes tdap vaccine: given rhogam: given LARC form signed: declines labor support person: Bin pain management: epidural-did not take effect well last delivery cut cord/dad catch: no :yes PP control planned: mirena special requests: [] Initial Weight: 170 lb Date EGA Weight BP Urine Prot Glucose FHR FuHt Pres Mov CTX Dilation Effaced St Visit Note Provider Comments 08/05/17 10w 5d 170 lb (+0 oz) 94/59 175 no vb some mild cramping 09/02/17 14w 5d 169 lb 4 oz (-12 oz) 107/61 Trace Negative 160 Still Still with nausea. No VB, LOF MH 10/08/17 19w 6d 173 lb 6 oz (+3 lb 6 oz) 85/54 Negative Negative 160 no vb, cramping 10/29/17 22w 6d 179 lb 4 oz (+9 lb 4 oz) 101/59 Negative Negative 153 22 Active absent Doing well. No VB, LOF. 11/19/17 25w 6d 185 lb 2 oz (+15 lb 2 oz) 99/66 145 25 Active absent co right breast enlargement and redness of the right breast, she denies any lumps or other changes, no family history of breast cancer. no discharge 12/01/17 27w 4d 185 lb 6 oz (+15 lb 6 oz) 108/71 Trace Negative 158 27 Active absent Persistent right breast pain and redness. Finished keflex. No VB, LOF. Good FM 12/15/17 29w 4d 189 lb 4 oz (+19 lb 4 oz) 111/64 Negative Negative 153 29 Active absent Breasts still runner bilaterally but improved. Some heartburn. NO VB, LOF. 12/28/17 31w 3d 191 lb 4 oz (+21 lb 4 oz) 101/67 Negative Negative 165 33 Cephalic Active absent no vb lof good fm no regular ctx 01/12/18 33w 4d 193 lb 8 oz (+23 lb 8 oz) 122/68 Negative Negative 155 33 Breech Active absent no vb lof good fm no regular ctx 01/26/18 35w 4d 198 lb 2 oz (+28 lb 2 oz) 115/76 Negative Negative 150 35 Cephalic Active absent no vb lof good fm no regular ctx 02/03/18 36w 5d 201 lb 2 oz (+31 lb 2 oz) 96/65 Negative Negative 146 36 Cephalic Active absent No VB, LOF. Doing well. 02/10/18 37w 5d 201 lb (+31 lb) 112/71 Negative Negative 145 38 Cephalic Active absent 1.50 -3 Rare CTX. More pressure. No VB, LOF. 02/17/18 38w 5d 202 lb (+32 lb) 110/70 Negative Negative 140 39 Breech Active absent 1.5 no vb lof good fm no regular ctx 02/25/18 39w 6d 200 lb (+30 lb) 118/68 Negative Negative 150 40 Cephalic Active absent 1.5 no vb lof good fm no regular ctx 03/02/18 40w 4d 203 lb (+33 lb) 118/74 Negative Negative 150 41 Cephalic Active absent no vb lof good fm no regular ctx plan IOL 41 weeks Visit Notes Visit Date: 03/02/18 no vb lof good fm no regular ctx plan IOL 41 weeks Marilyn Stone MD on 03/05/18 Visit Date: 02/25/18 no vb lof good fm no regular ctx Marilyn Stone MD on 02/25/18 Visit Date: 02/17/18 no vb lof good fm no regular ctx Marilyn Stone MD on 02/17/18 Visit Date: 02/10/18 Rare CTX. More pressure. No VB, LOF. AAMIR Miller on 02/10/18 Visit Date: 02/03/18 No VB, LOF. Doing well. AAMIR Miller on 02/03/18 Visit Date: 01/26/18 no vb lof good fm no regular ctx Marilyn Stone MD on 01/26/18 Visit Date: 01/12/18 no vb lof good fm no regular ctx Marilyn Stone MD on 01/12/18 Visit Date: 12/28/17 no vb lof good fm no regular ctx Marilyn Stone MD on 12/28/17 Visit Date: 12/15/17 Breasts still runner bilaterally but improved. Some heartburn. NO VB, LOF. AAMIR Miller on 12/15/17 Visit Date: 12/01/17 Persistent right breast pain and redness. Finished keflex. No VB, LOF. Good FM AAMIR Miller on 12/01/17 Visit Date: 11/19/17 co right breast enlargement and redness of the right breast, she denies any lumps or other changes, no family history of breast cancer. no discharge Marilyn Stone MD on 11/19/17 Visit Date: 10/29/17 Doing well. No VB, LOF. GUY MillerC on 10/29/17 Visit Date: 10/08/17 no vb, cramping Marilyn Stone MD on 10/08/17 Visit Date: 09/02/17 Still with nausea. No VB, LOF GUY MillerC on 09/02/17 Still AAMIR Miller on 09/02/17 Visit Date: 08/05/17 no vb some mild cramping Marilyn Stone MD on 08/05/17 ACOG First Trimester First Trimester: Desire for , Alcohol, Tobacco Cessation, Illicit/Recreational Drug/Substance Use, Intimate Partner Violence, Barriers to care, Unstable Housing, Communication Barriers, Environmental/Work Hazards, Anticipated Course of Care, Toxoplasmosis Precations, Use of Any medications, Sexual activity, Exercise, Dental Care, Sauna/Hot tub use, Seat Belt use, Childbirth classes/Hospital facilities, , Travel, Indications for US and Screening for Aneuploidy Second Trimester Second Trimester: Signs and Symptoms of Labor, Selecting a care provider, Reproductive Life Planning, Care Planning, Tobacco Cessation, Depression/Anxiety and Intimate Partner Violence Third Trimester Third Trimester: Pain Management Plans, Labor support person(s), Immediate Larc, Movement Monitoring and Infant Feeding Yes ; discussed Trial of Labor after Counseling or discussed Circumcision preference Diagnostics Diagnostics Labs Blood Type O NEGATIVE 02/17/18 Antibody Screen NEGATIVE 02/17/18 Hct 36.8 % (37-47) L 12/01/17 Hgb 12.3 g/dl (12.0-15.0) 12/01/17 Glucose 1 Hr 50 gm 92 mg/dL (70-140) 12/01/17 Details: HIV: Urine Culture: Sequential Screen: NIPT Screen: ROS Const Reports system reviewed and no additional complaints, except as docu Card Reports system reviewed and no additional complaints, except as docu Resp Reports system reviewed and no additional complaints, except as docu GI Reports system reviewed and no additional complaints, except as docu, Reports nausea Reports system reviewed and no additional complaints, except as docu Musc Reports system reviewed and no additional complaints, except as docu Exam Const General: cooperative, healthy appearing, comfortable, anxious HENMT Head: normal to inspection Nose: external nose normal Face and sinus: normal facial exam Neck Neck: normal visual inspection, full ROM, no lymphadenopathy Thyroid: thyroid normal Chest Chest palpation AND inspection: normal inspection of the chest Resp Effort AND Inspection: normal respiratory effort GI Inspection: normal to inspection Palpation: soft, other (gravid uterus) Other: vertex and appropriate size for gestational age Other: Cervical Exam: 3 cm Extrem General: pedal edema Results [id number] Office Urine Glucose Negative Last Edit by Vanessa Mckeon on 03/02/18 16:07 Office Urine Protein Negative Last Edit by Vanessa Mckeon on 03/02/18 16:07 Assessment AND Plan Problems 1. Post-term O48.0 2. Rh negative status during in third trimester O09.893 given at 28 weeks, given at ECV at 39 3. Group B Streptococcus urinary tract infection affecting in third trimester O23.43 pcn in labor 4. Nausea/vomiting in O21.9 phenergan reglan 5. Encounter for supervision of other normal in third trimester Z34.83 PRR EDD1 girl surprise PC Ronald Bin 6. Encounter for management of intrauterine contraceptive device (IUD), unspecified IUD management type Z30.431 Mirena 6 wk pp, auth done Plan movement and labor precautions reviewed. ACOG trimester education reviewed and updated. see problem list details for updated plan management information and see below for orders placed at this visit. GA appropriate handout given. plan IOL with pitocin, epidural PRN. AROM prn. gbs negative. Orders Orders: POC Urinalysis 2 Dip (Clinic) 03/02/18 Coding Level of Care Code OB Routine Diagnoses Post-term O48.0 Rh negative status during in third trimester O09.893 Trimester: third trimester Group B Streptococcus urinary tract infection affecting in third trimester O23.43 Trimester: third trimester Nausea/vomiting in O21.9 Encounter for supervision of other normal in third trimester Z34.83 Normal : other normal Trimester: third trimester Encounter for management of intrauterine contraceptive device (IUD), unspecified IUD management type Z30.431 Contraceptive encounter type: IUD management IUD management: unspecified 03/05/18 0831 <Electronically signed by Marilyn Stone MD> Date Marilyn Stone MD [facility] Signature: Date (if applicable) CC: Tacos Wells MD; Marilyn Stone MD Signed CBC-COMPLETE BLOOD CNT Collected: 03/05/2018 Status: F Source: [place] NO DIFF 7:50 AM [facility] REPOSITORY TYPE CODE TESTS RESULT OUT OF RANGE REFERENCE UNITS LAB L100.1000 4.4-11.0 K/mm3 Normal WBC 5.2 LAB L100.1200 4.2-5.4 M/mm3 Low RBC 3.87 LAB L100.1300 12.0-15.0 g/dl Low HGB 11.7 LAB L100.1400 37-47 % Low HCT 36.0 LAB L100.1500 81-99 fL Normal MCV 93.0 LAB L100.1600 27.0-32.0 pg Normal MCH 30.2 LAB L100.1700 32-36 g/gl Normal MCHC 32.5 LAB L100.1810 11.6-14.6 % Normal RDW CV 13.2 LAB L100.1820 35.1-43.9 fl Normal RDW SD 43.9 LAB L100.1900 150-450 K/mm3 Normal PLT 191 LAB L100.2000 6.2-12.0 fl Normal MPV 11.4 Performed By: #### L100.0500 #### [facility] [address] [place], [address] TYPE AND SCREEN Collected: 03/05/2018 Status: F Source: [place] 7:50 AM [facility] REPOSITORY Order Comment: Reason for Type AND Screen/Red Cells: ROUTINE TYPE CODE TESTS RESULT OUT OF RANGE REFERENCE UNITS LAB B10.0800 O Normal BLOOD TYPE GEL NEGATIVE LAB B100.4000 High Antibody POSITIVE Screen Performed By: #### B101.7450, B101.1999 #### [facility] [address] [place], [address] ANTIBODY PANEL ID Collected: 03/05/2018 Status: F Source: [place] 7:50 AM [facility] REPOSITORY Order Comment: Reason for Type AND Screen/Red Cells: ROUTINE TYPE CODE TESTS RESULT OUT OF REFERENCE UNITS RANGE LAB B101.1999 ANTIBODY PANEL ANTI-D Performed By: #### B101.7450, B101.1999 #### [facility] [address] [place], [address] SALES REPRESENTATIVE [employer] OFFICE VISIT Observed: 03/05/2018 Status: F Source: [place] REPORT 6:07 AM [facility] REPOSITORY [facility] [address] [place] [address] OFFICE VISIT Date of Service: 03/02/18 MR#: [id number] Acct: [id number] Name: HELEN HERMOSILLO Rep #: [id number] : 1985 Provider: Marilyn Stone MD Age/Sex: 32/F Location: [facility] [place] Status: Signed Intake Vital Signs03/02/18 Height 5 ft 5 in 03/02/18 Weight: 203 lb 03/02/18 Body Mass Index (BMI) 33.7 03/02/18 Blood Pressure 118/74 Intake Visit Reasons: OB Routine Measurement And Verification Engineer Required: No Is patient in pain?: No Allergies codeine Allergy (Intermediate, Verified 03/02/18 16:06) Swelling Medications vitamin,calcium,kkcjerre-vaff-gusqo acid tablet 1 tab PO QDAY 04/21/17 [History Confirmed 03/02/18] Last Menstral Period: 04/21/17 Zika: Zika virus screening: Negative : No PFSH PFSH Family History Grandmother Diabetes Social History number of children: 1 current occupational status: employed current occupation: [employer] current occupational exposures/hazards: No Smoking Status: Never smoker second hand exposure: No alcohol intake: never substance use type: does not use caffeine: No what type of physical activity do you participate in: none seatbelt use: always do you feel safe at home: Yes additional social history: Formerly [facility] Pregancy History 2 Elective abortions Hx Para 1 Spontaneous abortions Past Pregnancies Del. DatName GA/WeeksOutcome Route Bth WeigInfant GLabor LgAnesthesDel LocaProviderFOB e ht en th ia tn 11/29/14Declan 42 live birNSVD 7 poundsMale epiduralNE th - ful 6 ounc l term HPI OB Routine: Details: HELEN HERMOSILLO is a 32 year old who presents for routine OB visit. OB Visit DINESH Calculator Estimated Delivery Date 02/26/18 Based on Ultrasound Date 07/08/17 Current WG 41w 0d Number 1 Expected Delivery Route/Plan Specific Issue/Plans flu vaccine declined minichart given: yes tdap vaccine: given rhogam: given LARC form signed: declines labor support person: Bin pain management: epidural-did not take effect well last delivery cut cord/dad catch: no :yes PP control planned: mirena special requests: [] Initial Weight: 170 lb Date Weight BP Urine PrFHR FuHt Pres MoCTX DilationFetal StVisit NoProviderComments E ot v te GA G Effac lucose ed Visit Notes Visit Date: 03/02/18 no vb lof good fm no regular ctx plan IOL 41 weeks Marilyn Stone MD on 03/05/18 Visit Date: 02/25/18 no vb lof good fm no regular ctx Marilyn Stone MD on 02/25/18 Visit Date: 02/17/18 no vb lof good fm no regular ctx Marilyn Stone MD on 02/17/18 Visit Date: 02/10/18 Rare CTX. More pressure. No VB, LOF. AAMIR Miller on 02/10/18 Visit Date: 02/03/18 No VB, LOF. Doing well. AAMIR Miller on 02/03/18 Visit Date: 01/26/18 no vb lof good fm no regular ctx Marilyn Stone MD on 01/26/18 Visit Date: 01/12/18 no vb lof good fm no regular ctx Marilyn Stone MD on 01/12/18 Visit Date: 12/28/17 no vb lof good fm no regular ctx Marilyn Stone MD on 12/28/17 Visit Date: 12/15/17 Breasts still runner bilaterally but improved. Some heartburn. NO VB, LOF. AAMIR Miller on 12/15/17 Visit Date: 12/01/17 Persistent right breast pain and redness. Finished keflex. No VB, LOF. Good FM AAMIR Miller on 12/01/17 Visit Date: 11/19/17 co right breast enlargement and redness of the right breast, she denies any lumps or other changes, no family history of breast cancer. no discharge Marilyn Stone MD on 11/19/17 Visit Date: 10/29/17 Doing well. No VB, LOF. AAMIR Miller on 10/29/17 Visit Date: 10/08/17 no vb, cramping Marilyn Stone MD on 10/08/17 Visit Date: 09/02/17 Still with nausea. No VB, LOF AAMIR Miller on 09/02/17 Still AAMIR Miller on 09/02/17 Visit Date: 08/05/17 no vb some mild cramping Marilyn Stone MD on 08/05/17 ACOG First Trimester First Trimester: Desire for , Alcohol, Tobacco Cessation, Illicit/Recreational Drug/Substance Use, Intimate Partner Violence, Barriers to care, Unstable Housing, Communication Barriers, Environmental/Work Hazards, Anticipated Course of Care, Toxoplasmosis Precations, Use of Any medications, Sexual activity, Exercise, Dental Care, Sauna/Hot tub use, Seat Belt use, Childbirth classes/Hospital facilities, , Travel, Indications for US and Screening for Aneuploidy Second Trimester Second Trimester: Signs and Symptoms of Labor, Selecting a care provider, Reproductive Life Planning, Care Planning, Tobacco Cessation, Depression/Anxiety and Intimate Partner Violence Third Trimester Third Trimester: Pain Management Plans, Labor support person(s), Immediate Larc, Movement Monitoring and Feeding Yes ; discussed Trial of Labor after Counseling or discussed Circumcision preference Diagnostics Diagnostics Labs Blood Type O NEGATIVE 02/17/18 Antibody Screen NEGATIVE 02/17/18 Hct 36.8 % (37-47) L 12/01/17 Hgb 12.3 g/dl (12.0-15.0) 12/01/17 Glucose 1 Hr 50 gm 92 mg/dL (70-140) 12/01/17 Details: HIV: Urine Culture: Sequential Screen: NIPT Screen: ROS Const Reports system reviewed and no additional complaints, except as docu Card Reports system reviewed and no additional complaints, except as docu Resp Reports system reviewed and no additional complaints, except as docu GI Reports system reviewed and no additional complaints, except as docu, Reports nausea Reports system reviewed and no additional complaints, except as docu Musc Reports system reviewed and no additional complaints, except as docu Exam Const General: cooperative, healthy appearing, comfortable, anxious HENMT Head: normal to inspection Nose: external nose normal Face and sinus: normal facial exam Neck Neck: normal visual inspection, full ROM, no lymphadenopathy Thyroid: thyroid normal Chest Chest palpation AND inspection: normal inspection of the chest Resp Effort AND Inspection: normal respiratory effort GI Inspection: normal to inspection Palpation: soft, other (gravid uterus) Other: infant vertex and appropriate size for gestational age Other: Cervical Exam: 3 cm Extrem General: pedal edema Results [id number] Office Urine Glucose Negative Last Edit by Vanessa Mckeon on 03/02/18 16:07 Office Urine Protein Negative Last Edit by Vanessa Mckeon on 03/02/18 16:07 Assessment AND Plan Problems 1. Post-term O48.0 2. Rh negative status during in third trimester O09.893 given at 28 weeks, given at ECV at 39 3. Group B Streptococcus urinary tract infection affecting in third trimester O23.43 pcn in labor 4. Nausea/vomiting in O21.9 phenergan reglan 5. Encounter for supervision of other normal in third trimester Z34.83 PRR EDD1 girl surprise PC Ronald Bin 6. Encounter for management of intrauterine contraceptive device (IUD), unspecified IUD management type Z30.431 Mirena 6 wk pp, auth done Plan movement and labor precautions reviewed. ACOG trimester education reviewed and updated. see problem list details for updated plan management information and see below for orders placed at this visit. GA appropriate handout given. plan IOL with pitocin, epidural PRN. AROM prn. gbs negative. Orders Orders: Coding Level of Care Code OB Routine Diagnoses Post-term O48.0 Rh negative status during in third trimester O09.893 Trimester: third trimester Group B Streptococcus urinary tract infection affecting in third trimester O23.43 Trimester: third trimester Nausea/vomiting in O21.9 Encounter for supervision of other normal in third trimester Z34.83 Normal : other normal Trimester: third trimester Encounter for management of intrauterine contraceptive device (IUD), unspecified IUD management type Z30.431 Contraceptive encounter type: IUD management IUD management: unspecified 03/05/18 0607 <Electronically signed by Marilyn Stone MD> Date Marilyn Stone MD Cos[employer] Signature: Date (if applicable) CC: SALES REPRESENTATIVE [employer] OFFICE VISIT Observed: 02/25/2018 Status: F Source: [place] REPORT 9:14 AM [facility] [address] [place] [address] OFFICE VISIT Date of Service: 02/25/18 MR#: [id number] Acct: [id number] Name: HELEN HERMOSILLO Rep #: [id number] : 1985 Provider: Marilyn Stone MD Age/Sex: 32/F Location: [facility] [place] Status: Signed Intake Vital Signs02/25/18 Height 5 ft 5 in 02/25/18 Weight: 200 lb 02/25/18 Body Mass Index (BMI) 33.3 02/25/18 Blood Pressure 118/68 Intake Visit Reasons: 40 weeks Measurement And Verification Engineer Required: No Accompanied by: Is patient in pain?: Yes Allergies codeine Allergy (Intermediate, Verified 02/25/18 08:47) Swelling Medications vitamin,calcium,fflhitjr-ccfa-rsuxx acid tablet 1 tab PO QDAY 04/21/17 [History Confirmed 02/25/18] Last Menstral Period: 04/21/17 Zika: Zika virus screening: Negative : No Nurse's Note: Pt. states she is having sharp pains when sitting for awhile, lower back pain, and clear discharge PFSH PFSH Family History Grandmother Diabetes Social History number of children: 1 current occupational status: employed current occupation: [employer] current occupational exposures/hazards: No Smoking Status: Never smoker second hand exposure: No alcohol intake: never substance use type: does not use caffeine: No what type of physical activity do you participate in: none seatbelt use: always do you feel safe at home: Yes additional social history: Formerly [facility] Pregancy History 2 Elective abortions Hx Para 1 Spontaneous abortions Past Pregnancies Del. DatName GA/WeeksOutcome [facility] LgAnesthesDel LocaProviderFOB e ht en ia tn 11/29/14Declan 42 live birNSVD 7 poundsMale epiduralNE th - ful 6 ounc l term HPI 40 weeks: Details: HELEN HERMOSILLO is a 32 year old who presents for routine OB visit. OB Visit DINESH Calculator Estimated Delivery Date 02/26/18 Based on Ultrasound Date 07/08/17 Current WG 39w 6d Number 1 Expected Delivery Route/Plan Specific Issue/Plans flu vaccine declined minichart given: yes tdap vaccine: given rhogam: given LARC form signed: declines labor support person: Bin pain management: epidural-did not take effect well last delivery cut cord/dad catch: no :yes PP control planned: mirena special requests: [] Initial Weight: 170 lb Date Weight BP Urine PrFHR FuHt Pres MoCTX DilationFetal StVisit NoProviderComments E ot v te GA G Effac lucose ed Visit Notes Visit Date: 02/25/18 no vb lof good fm no regular ctx Marilyn Stone MD on 02/25/18 Visit Date: 02/17/18 no vb lof good fm no regular ctx Marilyn Stone MD on 02/17/18 Visit Date: 02/10/18 Rare CTX. More pressure. No VB, LOF. AAMIR Miller on 02/10/18 Visit Date: 02/03/18 No VB, LOF. Doing well. AAIMR Miller on 02/03/18 Visit Date: 01/26/18 no vb lof good fm no regular ctx Marilyn Stone MD on 01/26/18 Visit Date: 01/12/18 no vb lof good fm no regular ctx Marilyn Stone MD on 01/12/18 Visit Date: 12/28/17 no vb lof good fm no regular ctx Marilyn Stone MD on 12/28/17 Visit Date: 12/15/17 Breasts still runner bilaterally but improved. Some heartburn. NO VB, LOF. AAMIR Miller on 12/15/17 Visit Date: 12/01/17 Persistent right breast pain and redness. Finished keflex. No VB, LOF. Good FM AAMIR Miller on 12/01/17 Visit Date: 11/19/17 co right breast enlargement and redness of the right breast, she denies any lumps or other changes, no family history of breast cancer. no discharge Marilyn Stone MD on 11/19/17 Visit Date: 10/29/17 Doing well. No VB, LOF. AAMIR Miller on 10/29/17 Visit Date: 10/08/17 no vb, cramping Marilyn Stone MD on 10/08/17 Visit Date: 09/02/17 Still with nausea. No VB, LOF AAMIR Miller on 09/02/17 Still AAMIR Miller on 09/02/17 Visit Date: 08/05/17 no vb some mild cramping Marilyn Stone MD on 08/05/17 ACOG First Trimester First Trimester: Desire for , Alcohol, Tobacco Cessation, Illicit/Recreational Drug/Substance Use, Intimate Partner Violence, Barriers to care, Unstable Housing, Communication Barriers, Environmental/Work Hazards, Anticipated Course of Care, Toxoplasmosis Precations, Use of Any medications, Sexual activity, Exercise, Dental Care, Sauna/Hot tub use, Seat Belt use, Childbirth classes/Hospital facilities, , Travel, Indications for US and Screening for Aneuploidy Second Trimester Second Trimester: Signs and Symptoms of Labor, Selecting a care provider, Reproductive Life Planning, Care Planning, Tobacco Cessation, Depression/Anxiety and Intimate Partner Violence Third Trimester Third Trimester: Pain Management Plans, Labor support person(s), Immediate Larc, Movement Monitoring and Feeding Yes ; discussed Trial of Labor after Counseling or discussed Circumcision preference Diagnostics Diagnostics Labs Blood Type O NEGATIVE 02/17/18 Antibody Screen NEGATIVE 02/17/18 Hct 36.8 % (37-47) L 12/01/17 Hgb 12.3 g/dl (12.0-15.0) 12/01/17 Glucose 1 Hr 50 gm 92 mg/dL (70-140) 12/01/17 Details: HIV: Urine Culture: Sequential Screen: NIPT Screen: Results [id number] Office Urine Glucose Negative Last Edit by Aury Stone on 02/25/18 08:51 Office Urine Protein Negative Last Edit by Aury Stone on 02/25/18 08:51 Assessment AND Plan Problems 1. Rh negative status during in third trimester O09.893 given at 28 weeks, given at ECV at 39 2. Group B Streptococcus urinary tract infection affecting in third trimester O23.43 pcn in labor 3. Nausea/vomiting in O21.9 phenergan reglan 4. Encounter for supervision of other normal in third trimester Z34.83 PRR EDD1 girl surprise PC Ronald Bin 5. Encounter for management of intrauterine contraceptive device (IUD), unspecified IUD management type Z30.431 Mirena 6 wk pp, auth done Plan movement and labor precautions reviewed. ACOG trimester education reviewed and updated. see problem list details for updated plan management information and see below for orders placed at this visit. GA appropriate handout given. Orders Orders: Coding Level of Care Code OB Routine Diagnoses Rh negative status during in third trimester O09.893 Trimester: third trimester Group B Streptococcus urinary tract infection affecting in third trimester O23.43 Trimester: third trimester Nausea/vomiting in O21.9 Encounter for supervision of other normal in third trimester Z34.83 Normal : other normal Trimester: third trimester Encounter for management of intrauterine contraceptive device (IUD), unspecified IUD management type Z30.431 Contraceptive encounter type: IUD management IUD management: unspecified 02/25/18 0914 <Electronically signed by Marilyn Stone MD> Date [facility] Signature: Date (if applicable) CC: SALES REPRESENTATIVE [employer] OFFICE VISIT Observed: 02/20/2018 Status: F Source: [place] REPORT 5:34 AM [facility] [address] [place] [address]. [address] [place] [address] OFFICE VISIT Date of Service: 02/17/18 MR#: [id number] Acct: [id number] Name: HELEN HERMOSILLO Rep #: [id number] : 1985 Provider: Marilyn Stone MD Age/Sex: 32/F Location: [facility] [place] Status: Signed Intake Vital Signs02/17/18 Height 5 ft 5 in 02/17/18 Weight: 202 lb 02/17/18 Body Mass Index (BMI) 33.6 02/17/18 Blood Pressure 110/70 Intake Visit Reasons: 39 weeks Chief Complaint: est ob Measurement And Verification Engineer Required: No Is patient in pain?: No Allergies codeine Allergy (Intermediate, Verified 02/17/18 08:39) Swelling Medications vitamin,calcium,vncfwccd-cdwt-udpzm acid tablet 1 tab PO QDAY 04/21/17 [History Confirmed 02/17/18] Last Menstral Period: 04/21/17 Zika: Zika virus screening: Negative : No PFSH PFSH Family History Grandmother Diabetes Social History number of children: 1 current occupational status: employed current occupation: [employer] current occupational exposures/hazards: No Smoking Status: Never smoker second hand exposure: No alcohol intake: never substance use type: does not use caffeine: No what type of physical activity do you participate in: none seatbelt use: always do you feel safe at home: Yes additional social history: [facility] History 2 Elective abortions Hx Para 1 Spontaneous abortions Past Pregnancies Del. DatName GA/WeeksOutcome Route Bth WeigInfant GLasee LgAnesthesDel LocaProviderFOB e ht en th ia tn 11/29/14Declan 42 live birNSVD 7 poundsMale epiduralNE th - ful 6 ounc l term HPI 39 weeks: Details: HELEN HERMOSILLO is a 32 year old who presents for routine OB visit. OB Visit DINESH Calculator Estimated Delivery Date 02/26/18 Based on Ultrasound Date 07/08/17 Current WG 39w 1d Number 1 Expected Delivery Route/Plan Specific Issue/Plans flu vaccine declined minichart given: yes tdap vaccine: given rhogam: given LARC form signed: declines labor support person: Bin pain management: epidural-did not take effect well last delivery cut cord/dad catch: no :yes PP control planned: art special requests: [] Initial Weight: 170 lb Date Weight BP Urine PFHR FuHt Pres MCTX DilatioFetal SVisit NProvideComment rot ov n t ote r s EGA Ef Gluco faced se 08/05/1169 lb 94/59 175 no vb s 8 (+0 oz) ome mil 10 d cramp w 5d ing Visit Notes Visit Date: 02/17/18 no vb lof good fm no regular ctx Marilyn Stone MD on 02/17/18 Visit Date: 02/10/18 Rare CTX. More pressure. No VB, LOF. AAMIR Miller on 02/10/18 Visit Date: 02/03/18 No VB, LOF. Doing well. AAMIR Miller on 02/03/18 Visit Date: 01/26/18 no vb lof good fm no regular ctx Marilyn Stone MD on 01/26/18 Visit Date: 01/12/18 no vb lof good fm no regular ctx Marilyn Stone MD on 01/12/18 Visit Date: 12/28/17 no vb lof good fm no regular ctx Marilyn Stone MD on 12/28/17 Visit Date: 12/15/17 Breasts still runner bilaterally but improved. Some heartburn. NO VB, LOF. AAMIR Miller on 12/15/17 Visit Date: 12/01/17 Persistent right breast pain and redness. Finished keflex. No VB, LOF. Good FM AAMIR Miller on 12/01/17 Visit Date: 11/19/17 co right breast enlargement and redness of the right breast, she denies any lumps or other changes, no family history of breast cancer. no discharge Marilyn Stone MD on 11/19/17 Visit Date: 10/29/17 Doing well. No VB, LOF. AAMIR Miller on 10/29/17 Visit Date: 10/08/17 no vb, cramping Marilyn Stone MD on 10/08/17 Visit Date: 09/02/17 Still with nausea. No VB, LOF AAMIR Miller on 09/02/17 Still AAMIR Miller on 09/02/17 Visit Date: 08/05/17 no vb some mild cramping Marilyn Stone MD on 08/05/17 ACOG First Trimester First Trimester: Desire for , Alcohol, Tobacco Cessation, Illicit/Recreational Drug/Substance Use, Intimate Partner Violence, Barriers to care, Unstable Housing, Communication Barriers, Environmental/Work Hazards, Anticipated Course of Care, Toxoplasmosis Precations, Use of Any medications, Sexual activity, Exercise, Dental Care, Sauna/Hot tub use, Seat Belt use, Childbirth classes/Hospital facilities, , Travel, Indications for US and Screening for Aneuploidy Second Trimester Second Trimester: Signs and Symptoms of Labor, Selecting a care provider, Reproductive Life Planning, Care Planning, Tobacco Cessation, Depression/Anxiety and Intimate Partner Violence Third Trimester Third Trimester: Pain Management Plans, Labor support person(s), Immediate Larc, Movement Monitoring and Infant Feeding Yes ; discussed Trial of Labor after Counseling or discussed Circumcision preference Diagnostics Diagnostics Labs Blood Type O NEGATIVE 02/17/18 Antibody Screen NEGATIVE 02/17/18 Hct 36.8 % (37-47) L 12/01/17 Hgb 12.3 g/dl (12.0-15.0) 12/01/17 Glucose 1 Hr 50 gm 92 mg/dL (70-140) 12/01/17 Details: HIV: Urine Culture: Sequential Screen: NIPT Screen: Results [id number] Office Urine Glucose Negative Last Edit by Annabelle Small on 02/17/18 08:58 Office Urine Protein Negative Last Edit by Annabelle Small on 02/17/18 08:58 Assessment AND Plan Problems 1. Breech presentation, single or unspecified fetus O32.1XX0 2. Group B Streptococcus urinary tract infection affecting in third trimester O23.43 pcn in labor 3. Encounter for management of intrauterine contraceptive device (IUD), unspecified IUD management type Z30.431 Mirena 6 wk pp, auth done 4. Nausea/vomiting in O21.9 phenergan reglan 5. Encounter for supervision of other normal in third trimester Z34.83 PRR EDD1 girl surprise PC Ronald Bin 6. Rh negative status during in third trimester O09.893 given at 28 weeks, given at ECV at 39 Plan movement and labor precautions reviewed. ACOG trimester education reviewed and updated. see problem list details for updated plan management information and see below for orders placed at this visit. GA appropriate handout given. Orders Orders: Coding Level of Care Code OB Routine Diagnoses Breech presentation, single or unspecified fetus O32.1XX0 Fetus number: single or unspecified fetus Group B Streptococcus urinary tract infection affecting in third trimester O23.43 Trimester: third trimester Encounter for management of intrauterine contraceptive device (IUD), unspecified IUD management type Z30.431 Contraceptive encounter type: IUD management IUD management: unspecified Nausea/vomiting in O21.9 Encounter for supervision of other normal in third trimester Z34.83 Normal : other normal Trimester: third trimester Rh negative status during in third trimester O09.893 Trimester: third trimester 02/20/18 0534 <Electronically signed by Marilyn Stone MD> Date Marilyn Stone MD Cosigner Signature: Date (if applicable) CC: OPERATIVE REPORT Observed: 02/18/2018 Status: F Source: [place] 6:23 AM [facility] REPOSITORY [facility] Medical Records Department [address] [place] [address] Operative Report 02/18/1822 MR#: [id number] Acct: [id number] Name: HELEN HERMOSILLO Rep #: [id number] : 1985 32 From: Marilyn Stone MD PCP: Tacos Wells MD Status: DEP CLI Y Location: [facility] Problem List (1) Breech presentation Status: Acute Operative Report Date of Procedure: 02/17/18 Preprocedure diagnosis: Breech presentation Post procedure diagnosis: Vertex presentation Procedure: External cephalic version Surgeon: Marilyn Stone EBL: None Complications: None Anesthesia: None Special medications: Terbutaline Seizure details: The fetus was found to be in breech presentation informed by ultrasound. Patient had an IV in place, normal amniotic fluid, no contraindications to a vaginal delivery, and reactive nonstress test prior to the procedure. Patient was placed in the dorsal supine position after the terbutaline was given. Ultrasound gel was applied to the patient's abdomen and using constant upward pressure to elevate the buttocks out of the pelvic inlet constant pressure was applied to the buttocks and to the area behind the back of the neck and head to encourage a forward roll of the fetus. Constant pressure was applied and slowly the infant was converted to a vertex presentation. Bedside ultrasound was used to confirm vertex presentation and reassuring heart rate. Patient was replaced on the NST and monitored to assure reassuring status. No complications. 02/18/18622 <Electronically signed by Marilyn Stone MD> Date Marilyn Stone MD CC: Tacos Wells MD; Marilyn Stone MD Signed RHOGAM Collected: 02/17/2018 Status: F Source: [place] 3:45 PM [facility] REPOSITORY TYPE CODE TESTS RESULT OUT OF REFERENCE UNITS RANGE LAB U100.2500 [id number] TRANSFUSED PRODUCT: Rho(D) Immune Globulin RhoGam COUNT: 1 Performed By: #### U100.2500 #### Non-[facility] - refer to report for specific site TYPE AND SCREEN Collected: 02/17/2018 Status: F Source: [place] 3:10 PM [facility] REPOSITORY Order Comment: Reason for Type AND Screen/Red Cells: ROUTINE Other - use comments: version TYPE CODE TESTS RESULT OUT OF RANGE REFERENCE UNITS LAB B10.0800 O Normal BLOOD TYPE GEL NEGATIVE LAB B100.4000 Normal Antibody NEGATIVE Screen Performed By: #### B101.7450 #### [facility] [address] [place], [address] SALES REPRESENTATIVE [employer] OFFICE VISIT Observed: 02/10/2018 Status: F Source: [place] REPORT 8:30 AM [facility] REPOSITORY [facility] [address] [place] [address] OFFICE VISIT Date of Service: 02/10/18 MR#: [id number] Acct: [id number] Name: HELEN HERMOSILLO Rep #: [id number] : 1985 Provider: MARIE Fagan Age/Sex: 32/F Location: [facility] [place] Status: Signed Intake Vital Signs02/10/18 Height 5 ft 5 in 02/10/18 Weight: 201 lb 02/10/18 Body Mass Index (BMI) 33.4 02/10/18 Blood Pressure 112/71 Intake Visit Reasons: 38 WEEKS Measurement And Verification Engineer Required: No Accompanied by: Is patient in pain?: Yes Pain scale (1-10): 3 Allergies codeine Allergy (Intermediate, Verified 02/10/18 08:11) Swelling Medications ferrous sulfate 325 mg (65 mg iron) tablet 325 mg PO TID tab 04/21/17 [History Confirmed 02/03/18] vitamin,calcium,pvguzpsy-gqne-thjbi acid tablet 1 tab PO QDAY 04/21/17 [History Confirmed 02/03/18] metoclopramide 10 mg tablet 10 mg PO TID PRN #60 tab 07/13/17 [Rx Confirmed 02/03/18] promethazine 12.5 mg tablet 12.5 mg PO Q6H PRN #120 tab 07/13/17 [Rx Confirmed 02/03/18] ondansetron HCl 4 mg tablet 4 mg PO Q6H PRN #60 tab 09/02/17 [Rx Confirmed 02/03/18] Last Menstral Period: 04/21/17 Zika: Zika virus screening: Negative : No PFSH PFSH Family History Grandmother Diabetes Social History number of children: 1 current occupational status: employed current occupation: [employer] current occupational exposures/hazards: No Smoking Status: Never smoker second hand exposure: No alcohol intake: never substance use type: does not use caffeine: No what type of physical activity do you participate in: none seatbelt use: always do you feel safe at home: Yes additional social history: Formerly [facility] Pregancy History 2 Elective abortions Hx Para 1 Spontaneous abortions Past Pregnancies Del. DatName [place]/WeeksOutcome [facility] LocaProviderFOB e ht en md tn 11/29/14Declan 42 live birNSVD 7 poundsMale epiduralNE th - ful 6 ounc l term HPI 38 WEEKS: Details: HELEN HERMOSILLO is a 32 year old who presents for routine OB visit. OB Visit DINESH Calculator Estimated Delivery Date 02/26/18 Based on Ultrasound Date 07/08/17 Current WG 37w 5d Number 1 Expected Delivery Route/Plan Specific Issue/Plans flu vaccine declined minichart given: yes tdap vaccine: given rhogam: given LARC form signed: declines labor support person: Bin pain management: epidural-did not take effect well last delivery cut cord/dad catch: no :yes PP control planned: art special requests: [] Initial Weight: 170 lb Date Weight BP Urine PrFHR FuHt Pres MoCTX DilationFetal StVisit NoProviderComments E ot v te [place] G Effac lucose ed Visit Notes Visit Date: 02/10/18 Rare CTX. More pressure. No VB, LOF. AAMIR Miller on 02/10/18 Visit Date: 02/03/18 No VB, LOF. Doing well. AAMIR Miller on 02/03/18 Visit Date: 01/26/18 no vb lof good fm no regular ctx Marilyn Stone MD on 01/26/18 Visit Date: 01/12/18 no vb lof good fm no regular ctx Marilyn Stone MD on 01/12/18 Visit Date: 12/28/17 no vb lof good fm no regular ctx Marilyn Stone MD on 12/28/17 Visit Date: 12/15/17 Breasts still runner bilaterally but improved. Some heartburn. NO VB, LOF. AAMIR Miller on 12/15/17 Visit Date: 12/01/17 Persistent right breast pain and redness. Finished keflex. No VB, LOF. Good FM AAMIR Miller on 12/01/17 Visit Date: 11/19/17 co right breast enlargement and redness of the right breast, she denies any lumps or other changes, no family history of breast cancer. no discharge Marilyn Stone MD on 11/19/17 Visit Date: 10/29/17 Doing well. No VB, LOF. AAMIR Miller on 10/29/17 Visit Date: 10/08/17 no vb, cramping Marilyn Stone MD on 10/08/17 Visit Date: 09/02/17 Still with nausea. No VB, LOF AAMIR Miller on 09/02/17 Still AAMIR Miller on 09/02/17 Visit Date: 08/05/17 no vb some mild cramping Marilyn Stone MD on 08/05/17 ACOG First Trimester First Trimester: Desire for , Alcohol, Tobacco Cessation, Illicit/Recreational Drug/Substance Use, Intimate Partner Violence, Barriers to care, Unstable Housing, Communication Barriers, Environmental/Work Hazards, Anticipated Course of Care, Toxoplasmosis Precations, Use of Any medications, Sexual activity, Exercise, Dental Care, Sauna/Hot tub use, Seat Belt use, Childbirth classes/Hospital facilities, , Travel, Indications for US and Screening for Aneuploidy Second Trimester Second Trimester: Signs and Symptoms of Labor, Selecting a care provider, Reproductive Life Planning, Care Planning, Tobacco Cessation, Depression/Anxiety and Intimate Partner Violence Third Trimester Third Trimester: Pain Management Plans, Labor support person(s), Immediate Larc, Movement Monitoring and Feeding Yes ; discussed Trial of Labor after Counseling or discussed Circumcision preference Diagnostics Diagnostics Labs Blood Type O NEGATIVE 12/01/17 Antibody Screen NEGATIVE 12/01/17 Hct 36.8 % (37-47) L 12/01/17 Hgb 12.3 g/dl (12.0-15.0) 12/01/17 Obstetrics Ultrasound 10/08/17 Glucose 1 Hr 50 gm 92 mg/dL (70-140) 12/01/17 Details: HIV: Urine Culture: Sequential Screen: NIPT Screen: Results [id number] Office Urine Glucose Negative Last Edit by Janette Stevens on 02/10/18 08:14 Office Urine Protein Negative Last Edit by Janette Stevens on 02/10/18 08:14 Assessment AND Plan Problems 1. Encounter for supervision of other normal in third trimester Z34.83 PRR EDD1 girl surprise PC Ronald Bin 2. Encounter for management of intrauterine contraceptive device (IUD), unspecified IUD management type Z30.431 Mirena 6 wk pp, auth done 3. Group B Streptococcus urinary tract infection affecting in third trimester O23.43 pcn in labor 4. Nausea/vomiting in O21.9 phenergan reglan 5. Rh negative status during in third trimester O09.893 Rhogam PRN and at 28 weeks 6. 37 weeks gestation of Z3A.37 Plan Orders placed: none Reviewed of labor precautions, movement/kick counts ACOG trimester education reviewed and updated See problem list details for updated plan of care Gestational age appropriate handout given RTO: 1 week Orders Orders: Coding Level of Care Code OB Routine Diagnoses Encounter for supervision of other normal in third trimester Z34.83 Normal : other normal Trimester: third trimester Encounter for management of intrauterine contraceptive device (IUD), unspecified IUD management type Z30.431 Contraceptive encounter type: IUD management IUD management: unspecified Group B Streptococcus urinary tract infection affecting in third trimester O23.43 Trimester: third trimester Nausea/vomiting in O21.9 Rh negative status during in third trimester O09.893 Trimester: third trimester 37 weeks gestation of Z3A.37 02/10/18 0830 <Electronically signed by Sasha RUTLEDGE> Date Sasha RUTLEDGE Cosigner Signature: Date (if applicable) CC: SALES REPRESENTATIVE [employer] OFFICE VISIT Observed: 02/03/2018 Status: F Source: [place] REPORT 9:45 AM [facility] [address] [place] [address] OFFICE VISIT Date of Service: 02/03/18 MR#: [id number] Acct: [id number] Name: HELEN HERMOSILLO Rep #: [id number] : 1985 Provider: MARIE Fagan Age/Sex: 32/F Location: [facility] [place] Status: Signed Intake Vital Signs02/03/18 Height 5 ft 5 in 02/03/18 Weight: 201 lb 2 oz 02/03/18 Body Mass Index (BMI) 33.5 02/03/18 Blood Pressure 96/65 Intake Visit Reasons: 37 WEEKS Measurement And Verification Engineer Required: No Is patient in pain?: No Allergies codeine Allergy (Intermediate, Verified 02/03/18 09:29) Swelling Medications ferrous sulfate 325 mg (65 mg iron) tablet 325 mg PO TID tab 04/21/17 [History Confirmed 02/03/18] vitamin,calcium,avpnxsom-pjtv-ergzj acid tablet 1 tab PO QDAY 04/21/17 [History Confirmed 02/03/18] metoclopramide 10 mg tablet 10 mg PO TID PRN #60 tab 07/13/17 [Rx Confirmed 02/03/18] promethazine 12.5 mg tablet 12.5 mg PO Q6H PRN #120 tab 07/13/17 [Rx Confirmed 02/03/18] ondansetron HCl 4 mg tablet 4 mg PO Q6H PRN #60 tab 09/02/17 [Rx Confirmed 02/03/18] Last Menstral Period: 04/21/17 Zika: Zika virus screening: Negative : No PFSH PFSH Family History Grandmother Diabetes Social History number of children: 1 current occupational status: employed current occupation: [employer] current occupational exposures/hazards: No Smoking Status: Never smoker second hand exposure: No alcohol intake: never substance use type: does not use caffeine: No what type of physical activity do you participate in: none seatbelt use: always do you feel safe at home: Yes additional social history: Formerly [facility] Pregancy History 2 Elective abortions Hx Para 1 Spontaneous abortions Past Pregnancies Del. DatName [place]/WeeksOutcome [facility]gAn[facility]Del LocaProviderFOB e ht en ia tn 11/29/14Declan 42 live birNSVD 7 poundsMale epiduralNE th - ful 6 ounc l term HPI 37 WEEKS: Details: HELEN HERMOSILLO is a 32 year old who presents for routine OB visit. OB Visit DINESH Calculator Estimated Delivery Date 02/26/18 Based on Ultrasound Date 07/08/17 Current WG 36w 5d Number 1 Expected Delivery Route/Plan Specific Issue/Plans flu vaccine declined minichart given: yes tdap vaccine: given rhogam: given LARC form signed: declines labor support person: Bin pain management: epidural-did not take effect well last delivery cut cord/dad catch: no :yes PP control planned: mirena special requests: [] Initial Weight: 170 lb Date Weight BP Urine PrFHR FuHt Pres MoCTX DilationFetal StVisit NoProviderComments E ot v te [place] G Effac lucose ed Visit Notes Visit Date: 02/03/18 No VB, LOF. Doing well. AAMIR Miller on 02/03/18 Visit Date: 01/26/18 no vb lof good fm no regular ctx Marilyn Stone MD on 01/26/18 Visit Date: 01/12/18 no vb lof good fm no regular ctx Marilyn Stone MD on 01/12/18 Visit Date: 12/28/17 no vb lof good fm no regular ctx Marilyn Stone MD on 12/28/17 Visit Date: 12/15/17 Breasts still runner bilaterally but improved. Some heartburn. NO VB, LOF. AAMIR Miller on 12/15/17 Visit Date: 12/01/17 Persistent right breast pain and redness. Finished keflex. No VB, LOF. Good FM AAMIR Miller on 12/01/17 Visit Date: 11/19/17 co right breast enlargement and redness of the right breast, she denies any lumps or other changes, no family history of breast cancer. no discharge Marilyn Stone MD on 11/19/17 Visit Date: 10/29/17 Doing well. No VB, LOF. AAMIR Miller on 10/29/17 Visit Date: 10/08/17 no vb, cramping Marilyn Stone MD on 10/08/17 Visit Date: 09/02/17 Still with nausea. No VB, LOF AAMIR Miller on 09/02/17 Still AAMIR Miller on 09/02/17 Visit Date: 08/05/17 no vb some mild cramping Marilyn Stone MD on 08/05/17 ACOG First Trimester First Trimester: Desire for , Alcohol, Tobacco Cessation, Illicit/Recreational Drug/Substance Use, Intimate Partner Violence, Barriers to care, Unstable Housing, Communication Barriers, Environmental/Work Hazards, Anticipated Course of Care, Toxoplasmosis Precations, Use of Any medications, Sexual activity, Exercise, Dental Care, Sauna/Hot tub use, Seat Belt use, Childbirth classes/Hospital facilities, , Travel, Indications for US and Screening for Aneuploidy Second Trimester Second Trimester: Signs and Symptoms of Labor, Selecting a care provider, Reproductive Life Planning, Care Planning, Tobacco Cessation, Depression/Anxiety and Intimate Partner Violence Third Trimester Third Trimester: Pain Management Plans, Labor support person(s), Immediate Larc, Movement Monitoring and Infant Feeding Yes ; discussed Trial of Labor after Counseling or discussed Circumcision preference Diagnostics Diagnostics Labs Blood Type O NEGATIVE 12/01/17 Antibody Screen NEGATIVE 12/01/17 Hct 36.8 % (37-47) L 12/01/17 Hgb 12.3 g/dl (12.0-15.0) 12/01/17 Obstetrics Ultrasound 10/08/17 Rubella IgG Antibody 58.6 IU/mL 07/08/17 RPR NONREACTIVE (NONREACTIVE) 07/08/17 Hep Bs Antigen Negative (Negative) 07/08/17 Chlam trachomat DNA PCR Negative (Negative) 07/08/17 N.gonorrhoeae DNA (PCR) Negative (Negative) 07/08/17 Glucose 1 Hr 50 gm 92 mg/dL (70-140) 12/01/17 Details: HIV: Urine Culture: Sequential Screen: NIPT Screen: Results [id number] Office Urine Glucose Negative Last Edit by Janette Stevens on 02/03/18 09:35 Office Urine Protein Negative Last Edit by Janette Stevens on 02/03/18 09:35 Assessment AND Plan Problems 1. Encounter for supervision of other normal in third trimester Z34.83 PRR EDD1 girl surprise PC Ronald Bin 2. Group B Streptococcus urinary tract infection affecting in third trimester O23.43 pcn in labor 3. Encounter for management of intrauterine contraceptive device (IUD), unspecified IUD management type Z30.431 Mirena 6 wk pp, auth done 4. Rh negative status during in third trimester O09.893 Rhogam PRN and at 28 weeks 5. 36 weeks gestation of Z3A.36 Plan Orders placed: none Reviewed of labor precautions, movement/kick counts ACOG trimester education reviewed and updated See problem list details for updated plan of care Gestational age appropriate handout given RTO: 1 week Orders Orders: Coding Level of Care Code OB Routine Diagnoses Encounter for supervision of other normal in third trimester Z34.83 Normal : other normal Trimester: third trimester Group B Streptococcus urinary tract infection affecting in third trimester O23.43 Trimester: third trimester Encounter for management of intrauterine contraceptive device (IUD), unspecified IUD management type Z30.431 Contraceptive encounter type: IUD management IUD management: unspecified Rh negative status during in third trimester O09.893 Trimester: third trimester 36 weeks gestation of Z3A.36 02/03/18 0945 <Electronically signed by Sasha RUTLEDGE> Date Sasha Fostoria SOLUTIONS DEVELOPMENT ANALYST-C Kvnger Signature: Date (if applicable) CC: SALES REPRESENTATIVE [employer] OFFICE VISIT Observed: 01/26/2018 Status: F Source: [place] REPORT 9:09 AM [facility] [address] [address] [place] [address] OFFICE VISIT Date of Service: 01/26/18 MR#: [id number] Acct: [id number] Name: HELEN HERMOSILLO Rep #: [id number] : 1985 Provider: Marilyn Stone MD Age/Sex: 32/F Location: [facility] [place] Status: Signed Intake Vital Signs01/26/18 Height 5 ft 5 in 01/26/18 Weight: 198 lb 2 oz 01/26/18 Body Mass Index (BMI) 32.9 01/26/18 Blood Pressure 115/76 Intake Visit Reasons: 36 weeks Chief Complaint: Right breast engorged with pressure. Feet and legs swelling Measurement And Verification Engineer Required: No Is patient in pain?: No Allergies codeine Allergy (Intermediate, Verified 01/26/18 08:41) Swelling Medications ferrous sulfate 325 mg (65 mg iron) tablet 325 mg PO TID tab 04/21/17 [History Confirmed 01/26/18] vitamin,calcium,qujqtunt-bnqf-eqeqb acid tablet 1 tab PO QDAY 04/21/17 [History Confirmed 01/26/18] metoclopramide 10 mg tablet 10 mg PO TID PRN #60 tab 07/13/17 [Rx Confirmed 01/26/18] promethazine 12.5 mg tablet 12.5 mg PO Q6H PRN #120 tab 07/13/17 [Rx Confirmed 01/26/18] ondansetron HCl 4 mg tablet 4 mg PO Q6H PRN #60 tab 09/02/17 [Rx Confirmed 01/26/18] Last Menstral Period: 04/21/17 Zika: Zika virus screening: Negative : No PFSH PFSH Family History Grandmother Diabetes Social History number of children: 1 current occupational status: employed current occupation: [employer] current occupational exposures/hazards: No Smoking Status: Never smoker second hand exposure: No alcohol intake: never substance use type: does not use caffeine: No what type of physical activity do you participate in: none seatbelt use: always do you feel safe at home: Yes additional social history: Formerly [facility] Pregancy History 2 Elective abortions Hx Para 1 Spontaneous abortions Past Pregnancies Del. DatName GA/WeeksOutcome Route [facility] WeigInfant GLabor LgAnesthesDel LocaProviderFOB e ht en ia tn 11/29/14Declan 42 live birNSVD 7 poundsMale epiduralNE th - ful 6 ounc l term HPI 36 weeks: Details: HELEN HERMOSILLO is a 32 year old who presents for routine OB visit. OB Visit DINESH Calculator Estimated Delivery Date 02/26/18 Based on Ultrasound Date 07/08/17 Current WG 35w 4d Number 1 Expected Delivery Route/Plan Specific Issue/Plans flu vaccine declined minichart given: yes tdap vaccine: given rhogam: given LARC form signed: declines labor support person: Bin pain management: epidural-did not take effect well last delivery cut cord/dad catch: no :yes PP control planned: mirena special requests: [] Initial Weight: 170 lb Date Weight BP Urine PrFHR FuHt Pres MoCTX DilationFetal StVisit NoProviderComments E ot v te [place] G Effac lucose ed Visit Notes Visit Date: 01/26/18 no vb lof good fm no regular ctx Marilyn Stone MD on 01/26/18 Visit Date: 01/12/18 no vb lof good fm no regular ctx Marilyn Stone MD on 01/12/18 Visit Date: 12/28/17 no vb lof good fm no regular ctx Marilyn Stone MD on 12/28/17 Visit Date: 12/15/17 Breasts still runner bilaterally but improved. Some heartburn. NO VB, LOF. AAMIR Miller on 12/15/17 Visit Date: 12/01/17 Persistent right breast pain and redness. Finished keflex. No VB, LOF. Good FM GUY MillerC on 12/01/17 Visit Date: 11/19/17 co right breast enlargement and redness of the right breast, she denies any lumps or other changes, no family history of breast cancer. no discharge Marilyn Stone MD on 11/19/17 Visit Date: 10/29/17 Doing well. No VB, LOF. AMAIR Miller on 10/29/17 Visit Date: 10/08/17 no vb, cramping Marilyn Stone MD on 10/08/17 Visit Date: 09/02/17 Still with nausea. No VB, LOF GUY MillerC on 09/02/17 Still AAMIR Miller on 09/02/17 Visit Date: 08/05/17 no vb some mild cramping Marilyn Stone MD on 08/05/17 ACOG First Trimester First Trimester: Desire for , Alcohol, Tobacco Cessation, Illicit/Recreational Drug/Substance Use, Intimate Partner Violence, Barriers to care, Unstable Housing, Communication Barriers, Environmental/Work Hazards, Anticipated Course of Care, Toxoplasmosis Precations, Use of Any medications, Sexual activity, Exercise, Dental Care, Sauna/Hot tub use, Seat Belt use, Childbirth classes/Hospital facilities, , Travel, Indications for US and Screening for Aneuploidy Second Trimester Second Trimester: Signs and Symptoms of Labor, Selecting a care provider, Reproductive Life Planning, Care Planning, Tobacco Cessation, Depression/Anxiety and Intimate Partner Violence Third Trimester Third Trimester: Pain Management Plans, Labor support person(s), Immediate Larc, Movement Monitoring and Infant Feeding Yes ; discussed Trial of Labor after Counseling or discussed Circumcision preference Diagnostics Diagnostics Labs Blood Type O NEGATIVE 12/01/17 Antibody Screen NEGATIVE 12/01/17 Hct 36.8 % (37-47) L 12/01/17 Hgb 12.3 g/dl (12.0-15.0) 12/01/17 Obstetrics Ultrasound 10/08/17 Rubella IgG Antibody 58.6 IU/mL 07/08/17 RPR NONREACTIVE (NONREACTIVE) 07/08/17 Hep Bs Antigen Negative (Negative) 07/08/17 Chlam trachomat DNA PCR Negative (Negative) 07/08/17 N.gonorrhoeae DNA (PCR) Negative (Negative) 07/08/17 Glucose 1 Hr 50 gm 92 mg/dL (70-140) 12/01/17 Details: HIV: Urine Culture: Sequential Screen: NIPT Screen: Results [id number] Office Urine Glucose Negative Last Edit by Aury Stone on 01/26/18 08:39 Office Urine Protein Negative Last Edit by Aury Stone on 01/26/18 08:39 Assessment AND Plan Problems 1. Rh negative status during in third trimester O09.893 Rhogam PRN and at 28 weeks 2. Group B Streptococcus urinary tract infection affecting in third trimester O23.43 pcn in labor 3. Nausea/vomiting in O21.9 phenergan reglan 4. Encounter for supervision of other normal in third trimester Z34.83 PRR EDD118 girl surprise PC Ronald Bin 5. Encounter for management of intrauterine contraceptive device (IUD), unspecified IUD management type Z30.431 Mirena 6 wk pp, auth done 6. 35 weeks gestation of Z3A.35 Plan ACOG trimester education reviewed and updated. see problem list details for updated plan management information and see below for orders placed at this visit. GA appropriate handout given. movement and labor precautions reviewed. Orders Orders: Coding Level of Care Code OB Routine Diagnoses Rh negative status during in third trimester O09.893 Trimester: third trimester Group B Streptococcus urinary tract infection affecting in third trimester O23.43 Trimester: third trimester Nausea/vomiting in O21.9 Encounter for supervision of other normal in third trimester Z34.83 Normal : other normal Trimester: third trimester Encounter for management of intrauterine contraceptive device (IUD), unspecified IUD management type Z30.431 Contraceptive encounter type: IUD management IUD management: unspecified 35 weeks gestation of Z3A.35 Weeks of gestation: 35 weeks 01/26/18 0909 <Electronically signed by Marilyn Stone MD> Date Marilyn Stone MD Cosigner Signature: Date (if applicable) CC: SALES REPRESENTATIVE [employer] OFFICE VISIT Observed: 01/12/2018 Status: F Source: [facility] REPORT 8:56 AM [facility] [address] [place] [address] OFFICE VISIT Date of Service: 01/12/18 MR#: [id number] Acct: [id number] Name: HELEN HERMOSILLO Rep #: [id number] : 1985 Provider: Marilyn Stone MD Age/Sex: 32/F Location: [facility] [place] Status: Signed Intake Vital Signs01/12/18 Height 5 ft 5 in 01/12/18 Weight: 193 lb 8 oz 01/12/18 Body Mass Index (BMI) 32.1 01/12/18 Blood Pressure 122/68 Intake Visit Reasons: 34 weeks Measurement And Verification Engineer Required: No Is patient in pain?: No Allergies codeine Allergy (Intermediate, Verified 01/12/18 08:25) Swelling Medications ferrous sulfate 325 mg (65 mg iron) tablet 325 mg PO TID tab 04/21/17 [History Confirmed 01/12/18] vitamin,calcium,sattgexx-pdcr-vagvs acid tablet 1 tab PO QDAY 04/21/17 [History Confirmed 01/12/18] metoclopramide 10 mg tablet 10 mg PO TID PRN #60 tab 07/13/17 [Rx Confirmed 01/12/18] promethazine 12.5 mg tablet 12.5 mg PO Q6H PRN #120 tab 07/13/17 [Rx Confirmed 01/12/18] ondansetron HCl 4 mg tablet 4 mg PO Q6H PRN #60 tab 09/02/17 [Rx Confirmed 01/12/18] Last Menstral Period: 04/21/17 Zika: Zika virus screening: Negative : No PFSH PFSH Family History Grandmother Diabetes Social History number of children: 1 current occupational status: employed current occupation: [employer] current occupational exposures/hazards: No Smoking Status: Never smoker second hand exposure: No alcohol intake: never substance use type: does not use caffeine: No what type of physical activity do you participate in: none seatbelt use: always do you feel safe at home: Yes additional social history: [facility]ly [facility] Pregancy History 2 Elective abortions Hx Para 1 Spontaneous abortions Past Pregnancies Del. DatName GA/WeeksOutcome Route Bth WeigInfant GLabor LgAnesthesDel LocaProviderFOB e ht en ia tn 11/29/14Declan 42 live birNSVD 7 poundsMale epiduralNE th - ful 6 ounc l term HPI 34 weeks: Details: HELEN HERMOSILLO is a 32 year old who presents for routine OB visit. OB Visit DINESH Calculator Estimated Delivery Date 02/26/18 Based on Ultrasound Date 07/08/17 Current WG 33w 4d Number 1 Expected Delivery Route/Plan Specific Issue/Plans flu vaccine declined minichart given: yes tdap vaccine: given rhogam: given LARC form signed: declines labor support person: Bin pain management: epidural-did not take effect well last delivery cut cord/dad catch: no :yes PP control planned: mirena special requests: [] Initial Weight: 170 lb Date Weight BP Urine PrFHR FuHt Pres MoCTX DilationFetal StVisit NoProviderComments E ot v te GA G Effac lucose ed Visit Notes Visit Date: 01/12/18 no vb lof good fm no regular ctx Marilyn Stone MD on 01/12/18 Visit Date: 12/28/17 no vb lof good fm no regular ctx Marilyn Stone MD on 12/28/17 Visit Date: 12/15/17 Breasts still runner bilaterally but improved. Some heartburn. NO VB, LOF. AAMIR Miller on 12/15/17 Visit Date: 12/01/17 Persistent right breast pain and redness. Finished keflex. No VB, LOF. Good FM AAMIR Miller on 12/01/17 Visit Date: 11/19/17 co right breast enlargement and redness of the right breast, she denies any lumps or other changes, no family history of breast cancer. no discharge Marilyn Stone MD on 11/19/17 Visit Date: 10/29/17 Doing well. No VB, LOF. AAMIR Miller on 10/29/17 Visit Date: 10/08/17 no vb, cramping Marilyn Stone MD on 10/08/17 Visit Date: 09/02/17 Still with nausea. No VB, LOF AAMIR Miller on 09/02/17 Still AAMIR Miller on 09/02/17 Visit Date: 08/05/17 no vb some mild cramping Marilyn Stone MD on 08/05/17 ACOG First Trimester First Trimester: Desire for , Alcohol, Tobacco Cessation, Illicit/Recreational Drug/Substance Use, Intimate Partner Violence, Barriers to care, Unstable Housing, Communication Barriers, Environmental/Work Hazards, Anticipated Course of Care, Toxoplasmosis Precations, Use of Any medications, Sexual activity, Exercise, Dental Care, Sauna/Hot tub use, Seat Belt use, Childbirth classes/Hospital facilities, , Travel, Indications for US and Screening for Aneuploidy Diagnostics Diagnostics Labs Blood Type O NEGATIVE 12/01/17 Antibody Screen NEGATIVE 12/01/17 Hct 36.8 % (37-47) L 12/01/17 Hgb 12.3 g/dl (12.0-15.0) 12/01/17 Obstetrics Ultrasound 10/08/17 Rubella IgG Antibody 58.6 IU/mL 07/08/17 RPR NONREACTIVE (NONREACTIVE) 07/08/17 Hep Bs Antigen Negative (Negative) 07/08/17 Chlam trachomat DNA PCR Negative (Negative) 07/08/17 N.gonorrhoeae DNA (PCR) Negative (Negative) 07/08/17 Glucose 1 Hr 50 gm 92 mg/dL (70-140) 12/01/17 Details: HIV: Urine Culture: Sequential Screen: NIPT Screen: Results [id number] Office Urine Glucose Negative Last Edit by Janette Stevens on 01/12/18 08:32 Office Urine Protein Negative Last Edit by Janette Stevens on 01/12/18 08:32 Assessment AND Plan Problems 1. Rh negative status during in third trimester O09.893; Z67.91 Rhogam PRN and at 28 weeks 2. Group B Streptococcus urinary tract infection affecting in third trimester O23.43; B95.1 pcn in labor 3. Nausea/vomiting in O21.9 phenergan reglan 4. Encounter for supervision of other normal in third trimester Z34.83 PRR EDD1 girl surprise PC Ronald Bin 5. Encounter for management of intrauterine contraceptive device (IUD), unspecified IUD management type Z30.431 Mirena 6 wk pp, auth done Plan movement and labor precautions reviewed. ACOG trimester education reviewed and updated. see problem list details for updated plan management information and see below for orders placed at this visit. GA appropriate handout given. Orders Orders: Coding Level of Care Code OB Routine Diagnoses Rh negative status during in third trimester O09.893; Z67.91 Trimester: third trimester Group B Streptococcus urinary tract infection affecting in third trimester O23.43; B95.1 Trimester: third trimester Nausea/vomiting in O21.9 Encounter for supervision of other normal in third trimester Z34.83 Normal : other normal Trimester: third trimester Encounter for management of intrauterine contraceptive device (IUD), unspecified IUD management type Z30.431 Contraceptive encounter type: IUD management IUD management: unspecified 01/12/18 0856 <Electronically signed by Mrailyn Stone MD> Date Marilyn Stone MD Cosigner Signature: Date (if applicable) CC: SALES REPRESENTATIVE [employer] OFFICE VISIT Observed: 12/28/2017 Status: F Source: [facility] REPORT 9:25 AM [facility] [address] [place], [place] [address]. [address] [place] [address] OFFICE VISIT Date of Service: 12/28/17 MR#: [id number] Acct: [id number] Name: HELEN HERMOSILLO Rep #: [id number] : 1985 Provider: Marilyn Stone MD Age/Sex: 32/F Location: [facility] [place] Status: Signed Intake Vital Signs12/28/17 Height 5 ft 5 in 12/28/17 Weight: 191 lb 4 oz 12/28/17 Body Mass Index (BMI) 31.8 12/28/17 Blood Pressure 101/67 Intake Visit Reasons: 32 weeks Chief Complaint: est ob Measurement And Verification Engineer Required: No Is patient in pain?: No Allergies codeine Allergy (Intermediate, Verified 12/28/17 08:56) Swelling Medications ferrous sulfate 325 mg (65 mg iron) tablet 325 mg PO TID tab 04/21/17 [History Confirmed 12/28/17] vitamin,calcium,xvzhxjqc-dibv-gfgsp acid tablet 1 tab PO QDAY 04/21/17 [History Confirmed 12/28/17] metoclopramide 10 mg tablet 10 mg PO TID PRN #60 tab 07/13/17 [Rx Confirmed 12/28/17] promethazine 12.5 mg tablet 12.5 mg PO Q6H PRN #120 tab 07/13/17 [Rx Confirmed 12/28/17] ondansetron HCl 4 mg tablet 4 mg PO Q6H PRN #60 tab 09/02/17 [Rx Confirmed 12/28/17] clindamycin HCl 300 mg capsule 300 mg PO TID #30 cap 12/01/17 [Rx Confirmed 12/28/17] Last Menstral Period: 04/21/17 Zika: Zika virus screening: Negative : No PFSH PFSH Family History Grandmother Diabetes Social History number of children: 1 current occupational status: employed current occupation: [employer] current occupational exposures/hazards: No Smoking Status: Never smoker second hand exposure: No alcohol intake: never substance use type: does not use caffeine: No what type of physical activity do you participate in: none seatbelt use: always do you feel safe at home: Yes additional social history: [facility] Pregancy History 2 Elective abortions Hx Para 1 Spontaneous abortions Past Pregnancies Del. DatName GA/WeeksOutcome [facility] LocaProviderFOB e ht en th ia tn 11/29/14Declan 42 live birNSVD 7 poundsMale epiduralNE th - ful 6 ounc l term HPI 32 weeks: Details: HELEN HERMOSILLO is a 32 year old who presents for routine OB visit. OB Visit [facility] Provider 's physician: jasbir singer DINESH Calculator Estimated Delivery Date 02/26/18 Based on Ultrasound Date 07/08/17 Current WG 31w 3d Number 1 Expected Delivery Route/Plan Specific Issue/Plans flu vaccine declined minichart given: yes tdap vaccine: given rhogam: given LARC form signed: declines labor support person: Bin pain management: epidural-did not take effect well last delivery cut cord/dad catch: no :yes PP control planned: [] special requests: [] Initial Weight: 170 lb Date Weight BP Urine PrFHR FuHt Pres MoCTX DilationFetal StVisit NoProviderComments E ot v te GA G Effac lucose ed Visit Notes Visit Date: 12/28/17 no vb lof good fm no regular ctx Marilyn Stone MD on 12/28/17 Visit Date: 12/15/17 Breasts still runner bilaterally but improved. Some heartburn. NO VB, LOF. AAMIR Miller on 12/15/17 Visit Date: 12/01/17 Persistent right breast pain and redness. Finished keflex. No VB, LOF. Good FM AAMIR Miller on 12/01/17 Visit Date: 11/19/17 co right breast enlargement and redness of the right breast, she denies any lumps or other changes, no family history of breast cancer. no discharge Marilyn Stone MD on 11/19/17 Visit Date: 10/29/17 Doing well. No VB, LOF. AAMIR Miller on 10/29/17 Visit Date: 10/08/17 no vb, cramping Marilyn Stone MD on 10/08/17 Visit Date: 09/02/17 Still with nausea. No VB, LOF AAMIR Miller on 09/02/17 Still AAMIR Miller on 09/02/17 Visit Date: 08/05/17 no vb some mild cramping Marilyn Stone MD on 08/05/17 ACOG First Trimester First Trimester: Desire for , Alcohol, Tobacco Cessation, Illicit/Recreational Drug/Substance Use, Intimate Partner Violence, Barriers to care, Unstable Housing, Communication Barriers, Environmental/Work Hazards, Anticipated Course of Care, Toxoplasmosis Precations, Use of Any medications, Sexual activity, Exercise, Dental Care, Sauna/Hot tub use, Seat Belt use, Childbirth classes/Hospital facilities, , Travel, Indications for US and Screening for Aneuploidy Second Trimester Second Trimester: Signs and Symptoms of Labor, Selecting a care provider, Reproductive Life Planning, Care Planning (16 weeks maternity leave), Tobacco Cessation, Depression/Anxiety and Intimate Partner Violence Third Trimester Third Trimester: Labor support person(s), Movement Monitoring, Pain Management Plans (epidural), Immediate Larc (declines) and Infant Feeding Yes ; discussed Circumcision preference or discussed Trial of Labor after Counseling Diagnostics Diagnostics Labs Blood Type O NEGATIVE 12/01/17 Antibody Screen NEGATIVE 12/01/17 Hct 36.8 % (37-47) L 12/01/17 Hgb 12.3 g/dl (12.0-15.0) 12/01/17 Obstetrics Ultrasound 10/08/17 Rubella IgG Antibody 58.6 IU/mL 07/08/17 RPR NONREACTIVE (NONREACTIVE) 07/08/17 Hep Bs Antigen Negative (Negative) 07/08/17 Chlam trachomat DNA PCR Negative (Negative) 07/08/17 N.gonorrhoeae DNA (PCR) Negative (Negative) 07/08/17 Glucose 1 Hr 50 gm 92 mg/dL (70-140) 12/01/17 Details: HIV: Urine Culture: Sequential Screen: NIPT Screen: Results [id number] Office Urine Glucose Negative Last Edit by Annabelle Small on 12/28/17 09:07 Office Urine Protein Negative Last Edit by Annabelle Small on 12/28/17 09:07 Assessment AND Plan Problems 1. Rh negative status during in first trimester O09.891 Rhogam PRN and at 28 weeks 2. Encounter for supervision of other normal in first trimester Z34.81 PRR EDD1 girl PC Ronald Bin 3. Nausea/vomiting in O21.9 phenergan reglan 4. Group B Streptococcus urinary tract infection affecting in first trimester O23.43 pcn in labor 5. Encounter for management of intrauterine contraceptive device (IUD), unspecified IUD management type Z30.431 Mirena 6 wk pp, auth done Plan movement and labor precautions reviewed. ACOG trimester education reviewed and updated. see problem list details for updated plan management information and see below for orders placed at this visit. GA appropriate handout given. Orders Orders: Coding Level of Care Code OB Routine Diagnoses Rh negative status during in first trimester O09.891 Trimester: first trimester Encounter for supervision of other normal in first trimester Z34.81 Normal : other normal Trimester: first trimester Nausea/vomiting in O21.9 Group B Streptococcus urinary tract infection affecting in first trimester O23.43 Trimester: first trimester Encounter for management of intrauterine contraceptive device (IUD), unspecified IUD management type Z30.431 Contraceptive encounter type: IUD management IUD management: unspecified 12/28/17 0925 <Electronically signed by Marilyn Stone MD> Date Marilyn Stone MD Cosigner Signature: Date (if applicable) CC: SALES REPRESENTATIVE [employer] OFFICE VISIT Observed: 12/15/2017 Status: F Source: [facility] REPORT 9:30 AM [facility] [address] [place] [address]. [address] [place] [address] OFFICE VISIT Date of Service: 12/15/17 MR#: [id number] Acct: [id number] Name: HELEN HERMOSILLO Rep #: [id number] : 1985 Provider: MARIE Fagan Age/Sex: 32/F Location: [facility] [place] Status: Signed Intake Vital Signs12/15/17 Height 5 ft 5 in 12/15/17 Weight: 189 lb 4 oz 12/15/17 Body Mass Index (BMI) 31.4 12/15/17 Blood Pressure 111/64 Intake Visit Reasons: 30 weeks Chief Complaint: est ob Measurement And Verification Engineer Required: No Is patient in pain?: No Allergies codeine Allergy (Intermediate, Verified 12/15/17 08:52) Swelling Medications ferrous sulfate 325 mg (65 mg iron) tablet 325 mg PO TID tab 04/21/17 [History Confirmed 12/15/17] vitamin,calcium,bwdzgecm-cbmg-dtqrs acid tablet 1 tab PO QDAY 04/21/17 [History Confirmed 12/15/17] metoclopramide 10 mg tablet 10 mg PO TID PRN #60 tab 07/13/17 [Rx Confirmed 12/15/17] promethazine 12.5 mg tablet 12.5 mg PO Q6H PRN #120 tab 07/13/17 [Rx Confirmed 12/15/17] ondansetron HCl 4 mg tablet 4 mg PO Q6H PRN #60 tab 09/02/17 [Rx Confirmed 12/15/17] clindamycin HCl 300 mg capsule 300 mg PO TID #30 cap 12/01/17 [Rx Confirmed 12/15/17] Last Menstral Period: 04/21/17 Zika: Zika virus screening: Negative : No PFSH PFSH Family History Grandmother Diabetes Social History number of children: 1 current occupational status: employed current occupation: [employer] current occupational exposures/hazards: No Smoking Status: Never smoker second hand exposure: No alcohol intake: never substance use type: does not use caffeine: No what type of physical activity do you participate in: none seatbelt use: always do you feel safe at home: Yes additional social history: [facility] Pregancy History 2 Elective abortions Hx Para 1 Spontaneous abortions Past Pregnancies Del. DatName GA/WeeksOutcome Route [facility] Montiel LgAnesthesDel LocaProviderFOB e ht en ia tn 11/29/14Declan 42 live birNSVD 7 poundsMale epiduralNE th - ful 6 ounc l term HPI 30 weeks: Details: HELEN HERMOSILLO is a 32 year old who presents for routine OB visit. OB Visit DIN[facility] Calculator Estimated Delivery Date 02/26/18 Based on Ultrasound Date 07/08/17 Current WG 29w 4d Number 1 Expected Delivery Route/Plan Specific Issue/Plans flu vaccine declined minichart given: yes tdap vaccine: given rhogam: given LARC form signed: declines labor support person: Bin pain management: epidural-did not take effect well last delivery cut cord/dad catch: no :yes PP control planned: [] special requests: [] Initial Weight: 170 lb Date Weight BP Urine PFHR FuHt Pres MCTX DilatioFetal SVisit NProvideComment rot ov n t ote r s EGA Ef Gluco faced se 08/05/1169 lb 94/59 175 no vb s 8 (+0 oz) ome mil 10 d cramp w 5d ing Visit Notes Visit Date: 12/15/17 Breasts still runner bilaterally but improved. Some heartburn. NO VB, LOF. AAMIR Miller on 12/15/17 Visit Date: 12/01/17 Persistent right breast pain and redness. Finished keflex. No VB, LOF. Good FM AAMIR Miller on 12/01/17 Visit Date: 11/19/17 co right breast enlargement and redness of the right breast, she denies any lumps or other changes, no family history of breast cancer. no discharge Marilyn Stone MD on 11/19/17 Visit Date: 10/29/17 Doing well. No VB, LOF. GUY MillerC on 10/29/17 Visit Date: 10/08/17 no vb, cramping Marilyn Stone MD on 10/08/17 Visit Date: 09/02/17 Still with nausea. No VB, LOF AAMIR Miller on 09/02/17 Still AAMIR Miller on 09/02/17 Visit Date: 08/05/17 no vb some mild cramping Marilyn Stone MD on 08/05/17 ACOG First Trimester First Trimester: Desire for , Alcohol, Tobacco Cessation, Illicit/Recreational Drug/Substance Use, Intimate Partner Violence, Barriers to care, Unstable Housing, Communication Barriers, Environmental/Work Hazards, Anticipated Course of Care, Toxoplasmosis Precations, Use of Any medications, Sexual activity, Exercise, Dental Care, Sauna/Hot tub use, Seat Belt use, Childbirth classes/Hospital facilities, , Travel, Indications for US and Screening for Aneuploidy Diagnostics Diagnostics Labs Blood Type O NEGATIVE 12/01/17 Antibody Screen NEGATIVE 12/01/17 Hct 36.8 % (37-47) L 12/01/17 Hgb 12.3 g/dl (12.0-15.0) 12/01/17 Obstetrics Ultrasound 10/08/17 Rubella IgG Antibody 58.6 IU/mL 07/08/17 RPR NONREACTIVE (NONREACTIVE) 07/08/17 Hep Bs Antigen Negative (Negative) 07/08/17 Chlam trachomat DNA PCR Negative (Negative) 07/08/17 N.gonorrhoeae DNA (PCR) Negative (Negative) 07/08/17 Glucose 1 Hr 50 gm 92 mg/dL (70-140) 12/01/17 Details: HIV: Urine Culture: Sequential Screen: NIPT Screen: Exam Chest Other: Bilaterally warm to touch, mild erythema. Nontender, no masses Results [id number] Office Urine Glucose Negative Last Edit by Annabelle Small on 12/15/17 08:56 Office Urine Protein Negative Last Edit by Annabelle Small on 12/15/17 08:56 Assessment AND Plan Problems 1. Encounter for supervision of other normal in first trimester Z34.81 PRR EDD1 girl PC Ronald Bin 2. Rh negative status during in first trimester O09.891 Rhogam PRN and at 28 weeks 3. Nausea/vomiting in O21.9 phenergan reglan 4. Group B Streptococcus urinary tract infection affecting in first trimester O23.43 pcn in labor 5. Encounter for management of intrauterine contraceptive device (IUD), unspecified IUD management type Z30.431 Mirena 6 wk pp, auth done 6. 29 weeks gestation of Z3A.29 Plan Orders placed: none Handout on safe meds in for heartburn Reviewed management for breast engorgement. Call if area of pain, redness, mass or a fever occurs. Reviewed of labor precautions, movement/kick counts ACOG trimester education reviewed and updated See problem list details for updated plan of care Gestational age appropriate handout given RTO: 2 weeks Orders Orders: Coding Level of Care Code OB Routine Diagnoses Encounter for supervision of other normal in first trimester Z34.81 Normal : other normal Trimester: first trimester Rh negative status during in first trimester O09.891 Trimester: first trimester Nausea/vomiting in O21.9 Group B Streptococcus urinary tract infection affecting in first trimester O23.43 Trimester: first trimester Encounter for management of intrauterine contraceptive device (IUD), unspecified IUD management type Z30.431 Contraceptive encounter type: IUD management IUD management: unspecified 29 weeks gestation of Z3A.29 12/15/17 0930 <Electronically signed by Sasha RUTLEDGE> Date Sasha RUTLEDGE Cosigner Signature: Date (if applicable) CC: BREAST LIMITED Observed: 12/01/2017 Status: F Source: [facility] 1:27 PM [facility] REPOSITORY [facility] Imaging Services [address] [place] [address] Breast Limited Unilateral MR#: [id number] Acct: [id number] Name: HELEN HERMOSILLO Rep #: [id number] : 1985 F 32 From: Truman Mandujano MD PCP: Tacos Wells MD Status: REG CLI Study: Breast Limited Unilateral Date of Exam: 12/01/17 Exam# [id number] Ordering Dr: Sasha Fagan STUDY: ULTRASOUND BREAST - RIGHT REASON FOR EXAM: Female, 32 years old. Swelling and redness of the right breast. The patient is 28 weeks . TECHNIQUE: Axial and longitudinal images of the RIGHT breast were performed with a high resolution ultrasound transducer. COMPARISON: None. FINDINGS: RIGHT Breast: The lower half of the breast was examined by ultrasound. Dilated ducts are seen. No focal abscess or mass lesion is present. US/Breast Limited Unilateral IMPRESSION: Dilated subareolar ducts. Correlation with mammogram is recommended. ASSESSMENT CATEGORY: BIRADS Category 0: Incomplete. Need additional imaging evaluation. A letter regarding these results will be sent to the patient by the facility within 30 days. Electronically Signed: Truman Mandujano MD at 15:14 EDT Tel [phone], Service support , CC: MARIE Fagan; Tacos Wells MD Hot Air Furnace Installer Repairer: Signed DIAG MAMM W/CAD, Observed: 12/01/2017 Status: F Source: [facility] 1:27 PM [facility] REPOSITORY [facility] Imaging Services [address] [place] [id number] DIAG MAMM W/CAD, UNILAT MR#: [id number] Acct: [id number] Name: HELEN HERMOSILLO Rep #: [id number] : 1985 F 32 From: Truman Mandujano MD PCP: Tacos Wells MD Status: REG CLI Study: DIAG MAMM W/CAD, UNILAT Date of Exam: 12/01/17 Exam# [id number] Ordering Dr: Sasha Fagan SOLUTIONS DEVELOPMENT ANALYST-C MAMMOGRAPHY - UNILATERAL DIAGNOSTIC: RIGHT BREAST REASON FOR EXAM: Female, 32 years old. Swelling and erythema of the right breast. PERTINENT HISTORY: Non-contributory. TECHNIQUE: Digital unilateral breast keerthi (3D mammographic acquisition) in the CC and MLO projections. 2-D mediolateral oblique (MLO) and craniocaudad (CC) views of both breasts were obtained. CAD: Full Field Digital Mammography with Computer Added Detection was performed. COMPARISON: None. Baseline examination. FINDINGS: Breast Composition: The breasts are extremely dense, which lowers the sensitivity of mammography. There are no dominant masses or suspicious calcifications. Thickening of the periareolar skin region. No other significant abnormalities are identified. BI/DIAG MAMM W/CAD, UNILAT IMPRESSION: There is nonspecific thickening of the skin overlying the alveolar region. ASSESSMENT CATEGORY: BIRADS Category 2: Benign. A letter regarding these results will be sent to the patient by the facility within 30 days. Approximately 10% of breast cancers are not detected by mammography. A normal mammogram should not delay biopsy of a clinically suspicious abnormality. Electronically Signed: Truman Mandujano MD at 15:15 EDT Tel [phone], Service support , CC: MARIE Fagan; Tacos Wells MD Hot Air Furnace Installer Repairer: Signed SALES REPRESENTATIVE [employer] OFFICE VISIT Observed: 12/01/2017 Status: F Source: [facility] REPORT 11:13 AM [facility] [address] [place] [address] OFFICE VISIT Date of Service: 12/01/17 MR#: [id number] Acct: [id number] Name: HELEN HERMOSILLO Rep #: [id number] : 1985 Provider: MARIE Fagan Age/Sex: 32/F Location: [facility] [place] Status: Signed Intake Vital Signs12/01/17 Height 5 ft 5 in 12/01/17 Weight: 185 lb 6 oz 12/01/17 Body Mass Index (BMI) 30.8 12/01/17 Blood Pressure 108/71 Intake Visit Reasons: 28 WEEKS/RECHECK BREAST, NOT IMPROVING Measurement And Verification Engineer Required: No Accompanied by: Allergies codeine Allergy (Intermediate, Verified 07/17/18 08:16) Swelling Medications ferrous sulfate 325 mg (65 mg iron) tablet 325 mg PO TID tab 04/21/17 [History Confirmed 12/01/17] vitamin,calcium,qnztpfde-jsfl-nwtbg acid tablet 1 tab PO QDAY 04/21/17 [History Confirmed 12/01/17] metoclopramide 10 mg tablet 10 mg PO TID PRN #60 tab 07/13/17 [Rx Confirmed 12/01/17] promethazine 12.5 mg tablet 12.5 mg PO Q6H PRN #120 tab 07/13/17 [Rx Confirmed 12/01/17] ondansetron HCl 4 mg tablet 4 mg PO Q6H PRN #60 tab 09/02/17 [Rx Confirmed 12/01/17] Last Menstral Period: 04/21/17 Zika: Zika virus screening: Negative : No PFSH PFSH Family History Grandmother Diabetes Social History number of children: 1 current occupational status: employed current occupation: [employer] current occupational exposures/hazards: No Smoking Status: Never smoker second hand exposure: No alcohol intake: never substance use type: does not use caffeine: No what type of physical activity do you participate in: none seatbelt use: always do you feel safe at home: Yes additional social history: Formerly [facility] Pregancy History 2 Elective abortions Hx Para 1 Spontaneous abortions Past Pregnancies Del. DatName GA/WeeksOutcome Route [facility] LocaProviderFOB e ht en md tn 11/29/14Declan 42 live birNSVD 7 poundsMale epiduralNE th - ful 6 ounc l term HPI 28 WEEKS/RECHECK BREAST, NOT IMPROVING: Details: HELEN HERMOSILLO is a 32 year old who presents for routine OB visit. OB Visit DINESH Calculator Estimated Delivery Date 02/26/18 Based on Ultrasound Date 07/08/17 Current WG 27w 4d Number 1 Expected Delivery Route/Plan Specific Issue/Plans flu vaccine declined minichart given: yes tdap vaccine: [] rhogam: [] LARC form signed: declines labor support person: Bin pain management: epidural-did not take effect well last delivery cut cord/dad catch: no :yes PP control planned: [] special requests: [] Initial Weight: 170 lb Date Weight BP Urine PFHR FuHt Pres MCTX DilatioFetal SVisit NProvideComment rot ov n t ote r s EGA Ef Gluco faced se 08/05/1169 lb 94/59 175 no vb s 8 (+0 oz) ome mil 10 d cramp w 5d ing Visit Notes Visit Date: 12/01/17 Persistent right breast pain and redness. Finished keflex. No VB, LOF. Good FM GUY MillerC on 12/01/17 Visit Date: 11/19/17 co right breast enlargement and redness of the right breast, she denies any lumps or other changes, no family history of breast cancer. no discharge Marilyn Stone MD on 11/19/17 Visit Date: 10/29/17 Doing well. No VB, LOF. AAMIR Miller on 10/29/17 Visit Date: 10/08/17 no vb, cramping Marilyn Stone MD on 10/08/17 Visit Date: 09/02/17 Still with nausea. No VB, LOF AAMIR Miller on 09/02/17 Still AAMIR Miller on 09/02/17 Visit Date: 08/05/17 no vb some mild cramping Marilyn Stone MD on 08/05/17 ACOG First Trimester First Trimester: Desire for , Alcohol, Tobacco Cessation, Illicit/Recreational Drug/Substance Use, Intimate Partner Violence, Barriers to care, Unstable Housing, Communication Barriers, Environmental/Work Hazards, Anticipated Course of Care, Toxoplasmosis Precations, Use of Any medications, Sexual activity, Exercise, Dental Care, Sauna/Hot tub use, Seat Belt use, Childbirth classes/Hospital facilities, , Travel, Indications for US and Screening for Aneuploidy Diagnostics Diagnostics Labs Blood Type Pending 12/01/17 Antibody Screen Pending 12/01/17 Hct Pending 12/01/17 Hgb Pending 12/01/17 Obstetrics Ultrasound 10/08/17 Rubella IgG Antibody 58.6 IU/mL 07/08/17 RPR NONREACTIVE (NONREACTIVE) 07/08/17 Hep Bs Antigen Negative (Negative) 07/08/17 Chlam trachomat DNA PCR Negative (Negative) 07/08/17 N.gonorrhoeae DNA (PCR) Negative (Negative) 07/08/17 Glucose 1 Hr 50 gm Pending 12/01/17 Details: HIV: Urine Culture: Sequential Screen: NIPT Screen: Office Meds RhoGAM Ultra-Filtered PLUS Performing Provider: AAMIR Miller Administered by: Janette Stevens on 12/01/17 09:31 Dose Route Admin Location Lot Number Expiration Date [facility] [employer] 1,500 unit IM right gluteus [id number] 03/06/19 0897-8371-25 Oodrive Results [id number] Office Urine Glucose Negative Last Edit by Janette Stevens on 12/01/17 08:19 Office Urine Protein Trace Last Edit by Janette Stevens on 12/01/17 08:19 Immunizations Boostrix Tdap Performing Provider: AAMIR Miller Administered by: Janette Stevens on 12/01/17 09:31 Dose Route Admin Location Lot Number Expiration Date [facility] Human Capital Manager 0.5 mL IM Right Deltoid [id number] 04/10/19 [id number] [employer] VIS Given Date VIS Publication Date 12/01/17 07/11/14 Eligibility Eligibility Date Assessment AND Plan Problems 1. Encounter for supervision of other normal in first trimester Z34.81 PRR EDD1 girl PC Ronald Bin 2. Rh negative status during in first trimester O09.891 Rhogam PRN and at 28 weeks 3. Breast pain, right N64.4 Plan Orders placed: 28 week labs, tdap, rhogam. Right breast mammogram and ultrasound. Reviewed of labor precautions, movement/kick counts ACOG trimester education reviewed and updated See problem list details for updated plan of care Gestational age appropriate handout given RTO: 2 weeks Orders Orders: Medications Discontinued: Boostrix Tdap (diphth,pertus(acell),tetanus) Disc0.5 mL IM ONCE NS Z23 Janette Stevens ontinued Reason: Office Medication has been Documen eden as given Coding Level of Care Code OB Routine Diagnoses Encounter for supervision of other normal in first trimester Z34.81 Normal : other normal Trimester: first trimester Rh negative status during in first trimester O09.891 Trimester: first trimester Breast pain, right N64.4 12/01/17 1113 <Electronically signed by Sasha RUTLEDGE> Date Sasha RUTLEDGE Cosigner Signature: Date (if applicable) CC: GLUCOSE CHALLENGE GEST Collected: 12/01/2017 Status: F Source: [place] 1H 50G 9:04 AM [facility] REPOSITORY TYPE CODE TESTS RESULT OUT OF RANGE REFERENCE UNITS LAB L501.0250 70-140 mg/dL Normal GLU GEST 92 50g 1H Performed By: #### L501.0250, B101.7450 #### [facility] [address] [place], [place], [address] TYPE AND SCREEN Collected: 12/01/2017 Status: F Source: EXETER 9:04 AM [facility] REPOSITORY Order Comment: Reason for Type AND Screen/Red Cells: TYPE CODE TESTS RESULT OUT OF RANGE REFERENCE UNITS LAB B10.0800 O Normal BLOOD TYPE GEL NEGATIVE LAB B100.4000 Normal Antibody NEGATIVE Screen Performed By: #### L501.0250, B101.7450 #### [facility] [address] [place], [address] CBC W/DIFF, AUTOMATED Collected: 12/01/2017 Status: F Source: EXETER 9:04 AM [facility] REPOSITORY TYPE CODE TESTS RESULT OUT OF RANGE REFERENCE UNITS LAB L100.1000 4.4-11.0 K/mm3 Normal WBC 6.3 LAB L100.1200 4.2-5.4 M/mm3 Low RBC 3.84 LAB L100.1300 12.0-15.0 g/dl Normal HGB 12.3 LAB L100.1400 37-47 % Low HCT 36.8 LAB L100.1500 81-99 fL Normal MCV 95.8 LAB L100.1600 27.0-32.0 pg Normal MCH 32.0 LAB L100.1700 32-36 g/gl Normal MCHC 33.4 LAB L100.1810 11.6-14.6 % Normal RDW CV 13.0 LAB L100.1820 35.1-43.9 fl Normal RDW SD 43.7 LAB L100.1900 150-450 K/mm3 Normal PLT 185 LAB L100.2000 6.2-12.0 fl Normal MPV 11.4 LAB L100.2100 47-70 % High NEUT% 76.4 LAB L100.2200 19-41 % Low LY% 15.6 LAB L100.2300 0-10 % Normal MONO% 6.3 LAB L100.2400 0-5 % Normal EO% 0.5 LAB L100.2500 0-1 % Normal BASO% 0.2 LAB L100.2550 0.0-0.9 % High IM GRAN % 1.000 Result Comment: IG% - Immature Granulocytes (promyelocytes, myelocytes and metamyelocytes) > 1% indicates that a LEFT SHIFT is Present. LAB L100.2620 2.0-7.7 X10 3/uL Normal Absolute Neut 4.8 LAB L100.2720 0.83-4.51 X10 3/ul Normal Absolute Lymph 0.98 Performed By: #### L100.0100 #### [facility] [address] [place], [place], [address] SALES REPRESENTATIVE [employer] OFFICE VISIT Observed: 11/19/2017 Status: F Source: EXETER REPORT 3:25 PM [facility] REPOSITORY [facility] [address] [place] [address] OFFICE VISIT Date of Service: 11/19/17 MR#: [id number] Acct: [id number] Name: HELEN HERMOSILLO Rep #: [id number] : 1985 Provider: Marilyn Stone MD Age/Sex: 32/F Location: [facility] [place] Status: Signed Intake Vital Signs11/19/17 Height 5 ft 5 in 11/19/17 Weight: 185 lb 2 oz 11/19/17 Body Mass Index (BMI) 30.8 11/19/17 Blood Pressure 99/66 Intake Visit Reasons: right breast enlarged, red Measurement And Verification Engineer Required: No Accompanied by: Self Is patient in pain?: No Allergies codeine Allergy (Intermediate, Verified 11/19/17 14:51) Swelling Medications ferrous sulfate 325 mg (65 mg iron) tablet 325 mg PO TID tab 04/21/17 [History Confirmed 11/19/17] vitamin,calcium,qymkahtw-wpen-atvlj acid tablet 1 tab PO QDAY 04/21/17 [History Confirmed 11/19/17] metoclopramide 10 mg tablet 10 mg PO TID PRN #60 tab 07/13/17 [Rx Confirmed 11/19/17] promethazine 12.5 mg tablet 12.5 mg PO Q6H PRN #120 tab 07/13/17 [Rx Confirmed 11/19/17] ondansetron HCl 4 mg tablet 4 mg PO Q6H PRN #60 tab 09/02/17 [Rx Confirmed 11/19/17] cephalexin 500 mg capsule 500 mg PO TID 7 Days #21 cap 11/19/17 [Rx Confirmed 11/19/17] Last Menstral Period: 04/21/17 Zika: Zika virus screening: Negative : No PFSH PFSH Family History Grandmother Diabetes Social History number of children: 1 current occupational status: employed current occupation: [employer] current occupational exposures/hazards: No Smoking Status: Never smoker second hand exposure: No alcohol intake: never substance use type: does not use caffeine: No what type of physical activity do you participate in: none seatbelt use: always do you feel safe at home: Yes additional social history: Formerly [facility] Pregancy History 2 Elective abortions Hx Para 1 Spontaneous abortions Past Pregnancies Del. DatName GA/WeeksOutcome Route Bt [facility] LgAnesthesDel LocaProviderFOB e ht en ia tn 11/29/14Declan 42 live birNSVD 7 poundsMale epiduralNE th - ful 6 ounc l term HPI right breast enlarged, red: Details: HELEN HERMOSILLO is a 32 year old who presents for routine OB visit co right breast enlargement, painful OB Visit DINESH Calculator Estimated Delivery Date 02/26/18 Based on Ultrasound Date 07/08/17 Current WG 25w 6d Number 1 Expected Delivery Route/Plan Specific Issue/Plans flu vaccine declined minichart given: yes tdap vaccine: [] rhogam: [] LARC form signed: declines labor support person: Bin pain management: epidural-did not take effect well last delivery cut cord/dad catch: no :yes PP control planned: [] special requests: [] Initial Weight: 170 lb Date Weight BP Urine PFHR FuHt Pres MCTX DilatioFetal SVisit NProvideComment rot ov n t ote r s EGA Ef Gluco faced se 08/05/1169 lb 94/59 175 no vb s 8 (+0 oz) ome mil 10 d cramp w 5d ing Visit Notes Visit Date: 11/19/17 co right breast enlargement and redness of the right breast, she denies any lumps or other changes, no family history of breast cancer. no discharge Marilyn Stone MD on 11/19/17 Visit Date: 10/29/17 Doing well. No VB, LOF. GUY MillerC on 10/29/17 Visit Date: 10/08/17 no vb, cramping Marilyn Stone MD on 10/08/17 Visit Date: 09/02/17 Still with nausea. No VB, LOF GUY MillerC on 09/02/17 Still AAMIR Miller on 09/02/17 Visit Date: 08/05/17 no vb some mild cramping Marilyn Stone MD on 08/05/17 ACOG First Trimester First Trimester: Desire for , Alcohol, Tobacco Cessation, Illicit/Recreational Drug/Substance Use, Intimate Partner Violence, Barriers to care, Unstable Housing, Communication Barriers, Environmental/Work Hazards, Anticipated Course of Care, Toxoplasmosis Precations, Use of Any medications, Sexual activity, Exercise, Dental Care, Sauna/Hot tub use, Seat Belt use, Childbirth classes/Hospital facilities, , Travel, Indications for US and Screening for Aneuploidy Diagnostics Diagnostics Labs Blood Type O NEGATIVE 07/08/17 Antibody Screen NEGATIVE 07/08/17 Hct 37.1 % (37-47) 07/08/17 Hgb 12.7 g/dl (12.0-15.0) 07/08/17 Obstetrics Ultrasound 10/08/17 Rubella IgG Antibody 58.6 IU/mL 07/08/17 RPR NONREACTIVE (NONREACTIVE) 07/08/17 Hep Bs Antigen Negative (Negative) 07/08/17 Chlam trachomat DNA PCR Negative (Negative) 07/08/17 N.gonorrhoeae DNA (PCR) Negative (Negative) 07/08/17 Details: HIV: Urine Culture: Sequential Screen: NIPT Screen: [place] Reports system reviewed and no additional complaints, except as docu Skin/Breast Reports as per HPI Exam Chest Chest palpation AND inspection: normal inspection of the chest Breast inspection: abnormal inspection of the breast (right breast erythema) Breast palpation: normal palpation of the breasts, normal palpation of the axillae, no axillary lymphadenopathy Assessment AND Plan Problems 1. Mastitis during O91.219 Plan keflex ordered for mastitis, if no improvement recommend imaging Medications New: Coding Level of Care Code OB Routine Diagnoses Mastitis during O91.219 11/19/17 1525 <Electronically signed by Marilyn tSone MD> Date [facility]ilyn Stone [facility] Center[facility] Signature: Date (if applicable) CC: SALES REPRESENTATIVE [employer] OFFICE VISIT Observed: 10/29/2017 Status: F Source: [place]O REPORT 8:36 AM [facility] [address] [place] [address]. [address] [place], [place] [address] OFFICE VISIT Date of Service: 10/29/17 MR#: [id number] Acct: [id number] Name: HELEN HERMOSILLO Rep #: [id number] : 1985 Provider: MARIE Fagan Age/Sex: 32/F Location: [facility] [place] Status: Signed Intake Vital Signs10/29/17 Height 5 ft 5 in 10/29/17 Weight: 179 lb 4 oz 10/29/17 Body Mass Index (BMI) 29.8 10/29/17 Blood Pressure 101/59 Intake Visit Reasons: 24 WEEKS Chief Complaint: est ob Measurement And Verification Engineer Required: No Is patient in pain?: No Allergies codeine Allergy (Intermediate, Verified 10/29/17 08:16) Swelling Medications ferrous sulfate 325 mg (65 mg iron) tablet 325 mg PO TID tab 04/21/17 [History Confirmed 10/29/17] vitamin,calcium,besftkxe-oawb-ifugq acid tablet 1 tab PO QDAY 04/21/17 [History Confirmed 10/29/17] metoclopramide 10 mg tablet 10 mg PO TID PRN #60 tab 07/13/17 [Rx Confirmed 10/29/17] promethazine 12.5 mg tablet 12.5 mg PO Q6H PRN #120 tab 07/13/17 [Rx Confirmed 10/29/17] ondansetron HCl 4 mg tablet 4 mg PO Q6H PRN #60 tab 09/02/17 [Rx Confirmed 10/29/17] Last Menstral Period: 04/21/17 Zika: Zika virus screening: Negative : No PFSH PFSH Family History Grandmother Diabetes Social History number of children: 1 current occupational status: employed current occupation: [employer] current occupational exposures/hazards: No Smoking Status: Never smoker second hand exposure: No alcohol intake: never substance use type: does not use caffeine: No what type of physical activity do you participate in: none seatbelt use: always do you feel safe at home: Yes additional social history: Formerly [facility] Pregancy History 2 Elective abortions Hx Para 1 Spontaneous abortions Past Pregnancies Del. DatName GA/WeeksOutcome Route Bth WeigInfant GLabor LgAnesthesDel LocaProviderFOB e ht en ia tn 11/29/14Declan 42 live birNSVD 7 poundsMale epiduralNE th - ful 6 ounc l term HPI 24 WEEKS: Details: HELEN HERMOSILLO is a 32 year old who presents for routine OB visit. OB Visit DINESH Calculator Estimated Delivery Date 02/26/18 Based on Ultrasound Date 07/08/17 Current WG 22w 6d Number 1 Expected Delivery Route/Plan Specific Issue/Plans flu vaccine declined minichart given: yes tdap vaccine: [] rhogam: [] LARC form signed: declines labor support person: Bin pain management: epidural-did not take effect well last delivery cut cord/dad catch: no :yes PP control planned: [] special requests: [] Initial Weight: 170 lb Date Weight BP Urine PrFHR FuHt Pres MoCTX DilationFetal StVisit NoProviderComments E ot v te GA G Effac lucose ed Visit Notes Visit Date: 10/29/17 Doing well. No VB, LOF. GUY MillerC on 10/29/17 Visit Date: 10/08/17 no vb, cramping Marilyn Stone MD on 10/08/17 Visit Date: 09/02/17 Still with nausea. No VB, LOF GUY MillerC on 09/02/17 Still AAMIR Miller on 09/02/17 Visit Date: 08/05/17 no vb some mild cramping Marilyn Stone MD on 08/05/17 ACOG First Trimester First Trimester: Desire for , Alcohol, Tobacco Cessation, Illicit/Recreational Drug/Substance Use, Intimate Partner Violence, Barriers to care, Unstable Housing, Communication Barriers, Environmental/Work Hazards, Anticipated Course of Care, Toxoplasmosis Precations, Use of Any medications, Sexual activity, Exercise, Dental Care, Sauna/Hot tub use, Seat Belt use, Childbirth classes/Hospital facilities, , Travel, Indications for US and Screening for Aneuploidy Diagnostics Diagnostics Labs Blood Type O NEGATIVE 07/08/17 Antibody Screen NEGATIVE 07/08/17 Hct 37.1 % (37-47) 07/08/17 Hgb 12.7 g/dl (12.0-15.0) 07/08/17 Obstetrics Ultrasound 10/08/17 Rubella IgG Antibody 58.6 IU/mL 07/08/17 RPR NONREACTIVE (NONREACTIVE) 07/08/17 Hep Bs Antigen Negative (Negative) 07/08/17 Chlam trachomat DNA PCR Negative (Negative) 07/08/17 N.gonorrhoeae DNA (PCR) Negative (Negative) 07/08/17 Details: HIV: Urine Culture: Sequential Screen: NIPT Screen: Results [id number] Office Urine Glucose Negative Last Edit by Annabelle Small on 10/29/17 08:17 Office Urine Protein Negative Last Edit by Annabelle Small on 10/29/17 08:17 Assessment AND Plan Plan Orders placed: none 28 week labs next visit, Reviewed of labor precautions, movement/kick counts ACOG trimester education reviewed and updated See problem list details for updated plan of care Gestational age appropriate handout given RTO: 4 weeks Orders Orders: Coding Level of Care Code OB Routine 10/29/17 0836 <Electronically signed by Sasha RUTLEDGE> Date Sasha Fagan NP-C Cosigner Signature: Date (if applicable) CC: SALES REPRESENTATIVE [employer] OFFICE VISIT Observed: 10/08/2017 Status: F Source: [place] REPORT 11:35 AM [facility] [address] [place] [address] OFFICE VISIT Date of Service: 10/08/17 MR#: [id number] Acct: [id number] Name: BAYHELEN M Rep #: [id number] : 1985 Provider: Marilyn Stone MD Age/Sex: 32/F Location: [facility] [place] Status: Signed Intake Vital Signs10/08/17 Height 5 ft 5 in 10/08/17 Weight: 173 lb 6 oz 10/08/17 Body Mass Index (BMI) 28.8 10/08/17 Blood Pressure 85/54 Intake Visit Reasons: (OB) Chief Complaint: est ob Measurement And Verification Engineer Required: No Is patient in pain?: Yes Allergies codeine Allergy (Intermediate, Verified 10/08/17 11:14) Swelling Medications ferrous sulfate 325 mg (65 mg iron) tablet 325 mg PO TID tab 12/05/17 [History Confirmed 10/08/17] vitamin,calcium,wuqqjhlq-eaid-covpd acid tablet 1 tab PO QDAY 04/21/17 [History Confirmed 10/08/17] metoclopramide 10 mg tablet 10 mg PO TID PRN #60 tab 07/13/17 [Rx Confirmed 10/08/17] promethazine 12.5 mg tablet 12.5 mg PO Q6H PRN #120 tab 07/13/17 [Rx Confirmed 10/08/17] ondansetron HCl 4 mg tablet 4 mg PO Q6H PRN #60 tab 09/02/17 [Rx Confirmed 10/08/17] Last Menstral Period: 04/21/17 Zika: Zika virus screening: Negative : No PFSH PFSH Family History Grandmother Diabetes Social History number of children: 1 current occupational status: employed current occupation: [employer] current occupational exposures/hazards: No Smoking Status: Never smoker second hand exposure: No alcohol intake: never substance use type: does not use caffeine: No what type of physical activity do you participate in: none seatbelt use: always do you feel safe at home: Yes additional social history: Formerly [facility] Pregancy History 2 Elective abortions Hx Para 1 Spontaneous abortions Past Pregnancies Del. DatName GA/WeeksOutcome Route [facility] LocaProviderFOB e ht en th ia tn 11/29/14Declan 42 live birNSVD 7 poundsMale epiduralNE th - ful 6 ounc l term HPI (OB): Details: HELEN HERMOSILLO is a 32 year old who presents for routine OB visit. OB Visit DINESH Calculator Estimated Delivery Date 02/26/18 Based on Ultrasound Date 07/08/17 Current WG 19w 6d Number 1 Expected Delivery Route/Plan Specific Issue/Plans flu vaccine declined minichart given: yes tdap vaccine: [] rhogam: [] LARC form signed: [] labor support person: Bin pain management: epidural-did not take effect well last delivery cut cord/dad catch: no :yes PP control planned: [] special requests: [] Initial Weight: 170 lb Date Weight BP Urine PrFHR FuHt Pres MoCTX DilationFetal StVisit NoProviderComments E ot v te [place] G Effac lucose ed Visit Notes Visit Date: 10/08/17 no vb, cramping Marilyn Stone MD on 10/08/17 Visit Date: 09/02/17 Still with nausea. No VB, LOF Sasha Fagan SOLUTIONS DEVELOPMENT ANALYST-C on 09/02/17 Still Sasha Fagan NP-C on 09/02/17 Visit Date: 08/05/17 no vb some mild cramping Marilyn Stone MD on 08/05/17 ACOG First Trimester First Trimester: Desire for , Alcohol, Tobacco Cessation, Illicit/Recreational Drug/Substance Use, Intimate Partner Violence, Barriers to care, Unstable Housing, Communication Barriers, Environmental/Work Hazards, Anticipated Course of Care, Toxoplasmosis Precations, Use of Any medications, Sexual activity, Exercise, Dental Care, Sauna/Hot tub use, Seat Belt use, Childbirth classes/Hospital facilities, , Travel, Indications for US and Screening for Aneuploidy Diagnostics Diagnostics Labs Blood Type O NEGATIVE 07/08/17 Antibody Screen NEGATIVE 07/08/17 Hct 37.1 % (37-47) 07/08/17 Hgb 12.7 g/dl (12.0-15.0) 07/08/17 Obstetrics Ultrasound 10/08/17 Rubella IgG Antibody 58.6 IU/mL 07/08/17 RPR NONREACTIVE (NONREACTIVE) 07/08/17 Hep Bs Antigen Negative (Negative) 07/08/17 Chlam trachomat DNA PCR Negative (Negative) 07/08/17 N.gonorrhoeae DNA (PCR) Negative (Negative) 07/08/17 Details: HIV: Urine Culture: Sequential Screen: NIPT Screen: Results [id number] Office Urine Glucose Negative Last Edit by Annabelle Small on 10/08/17 11:16 Office Urine Protein Negative Last Edit by Annabelle Small on 10/08/17 11:16 Assessment AND Plan Problems 1. Group B Streptococcus urinary tract infection affecting in first trimester O23.43 pcn in labor 2. Nausea/vomiting in O21.9 phenergan reglan 3. Encounter for supervision of other normal in first trimester Z34.81 PRR EDD1 girl PC Ronald Bin 4. Rh negative status during in first trimester O09.891 Rhogam PRN and at 28 weeks 5. 19 weeks gestation of Z3A.19 Plan Orders placed: none ACOG trimester education reviewed and updated. see problem list details for updated plan management information. GA appropriate handout given. Orders Orders: Coding Level of Care Code OB Routine Diagnoses Group B Streptococcus urinary tract infection affecting in first trimester O23.43 Trimester: first trimester Nausea/vomiting in O21.9 Encounter for supervision of other normal in first trimester Z34.81 Normal : other normal Trimester: first trimester Rh negative status during in first trimester O09.891 Trimester: first trimester 19 weeks gestation of Z3A.19 10/08/17 1135 <Electronically signed by Marilyn Stone MD> Date Marilyn Stone MD Cosigner Signature: Date (if applicable) CC: OB ANATOMY SCAN Observed: 10/08/2017 Status: F Source: EXETER 7:49 AM [facility] REPOSITORY [facility] Imaging Services [address] [place] [id number] OB Anatomy Scan MR#: [id number] Acct: [id number] Name: HELEN HERMOSILLO Rep #: [id number] : 1985 F 32 From: Truman Mandujano MD PCP: Tacos Wells MD Status: REG CLI Study: OB Anatomy Scan Date of Exam: 10/08/17 Exam# [id number] Ordering Dr: Marilyn Stone MD STUDY: SECOND AND THIRD TRIMESTER OBSTETRICAL ULTRASOUND REASON FOR EXAM: Female, 32 years old. Routine survey. LMP: May 22, 2017. TECHNIQUE: Transabdominal PRIOR ULTRASOUND: None. FINDINGS: There is a single intrauterine fetus. The fetus is in a breech presentation. There is demonstrated cardiac activity with a heart rate of 156 bpm. There is a normal amniotic fluid volume. The largest amniotic fluid pocket measures 5.0 cm x 4.3 cm. The placenta is posterior in location and is not low lying. There are Grade 0 placental changes. The cervix measures 3.4 cm in length. The adnexal regions are not visualized. BIOMETRY: BPD: 4.81 cm: 20 weeks, 4 days HC: 17.92 cm: 20 weeks, 3 days AC: 15.85 cm: 20 weeks, 0 days FL: 3.16 cm: 19 weeks, 2 days CI: 74% FL/BPD: 66% FL/HC: FL/AC: 20% HC/AC: 1.13 age by current US: 20 weeks, 4 days. DINESH by current US: February 21, 2018. Estimated weight: 354 grams, +/- 52 grams, 79 %. Age by LMP: 9 weeks, 6 days. DINESH by LMP: February 26, 2018. ANATOMY: Gender: Female Cranium: Normal lateral ventricles. Normal choroid plexus. Normal cerebellum. Normal cisterna magna. Normal face, nose and lips. Chest: Normal 4-chamber heart. Abdomen/Pelvis: Normal diaphragm. Normal stomach. Normal abdominal wall. Normal cord insertion. Normal 3 vessel cord. Normal kidneys. Normal bladder. Spine: Normal cervical spine. Normal thoracic spine. Normal lumbar spine. Normal sacrum. Extremities: Normal bilateral upper extremities. Normal bilateral lower extremities. US/OB Anatomy Scan IMPRESSION: Single live intrauterine gestation with a mean gestational age of 20 weeks and 4 days. Electronically Signed: Truman Mandujano MD at 9:51 EDT Tel [phone], Service support , CC: Tacos Wells MD; Marilyn Stone MD Hot Air Furnace Installer Repairer: Signed SALES REPRESENTATIVE [employer] OFFICE VISIT Observed: 09/02/2017 Status: F Source: CHAPARRO REPORT 8:45 AM [facility] [address] [place] [address]. [address] [place] [address] OFFICE VISIT Date of Service: 09/02/17 MR#: [id number] Acct: [id number] Name: HELEN HERMOSILLO Rep #: [id number] : 1985 Provider: MARIE Fagan Age/Sex: 31/F Location: [facility] [place] Status: Signed Intake Vital Signs09/02/17 Height 5 ft 5 in 09/02/17 Weight: 169 lb 4 oz 09/02/17 Body Mass Index (BMI) 28.1 09/02/17 Blood Pressure 107/61 Intake Visit Reasons: 14 WEEKS Chief Complaint: est ob Measurement And Verification Engineer Required: No Is patient in pain?: No Allergies codeine Allergy (Intermediate, Verified 09/02/17 08:10) Swelling Medications ferrous sulfate 325 mg (65 mg iron) tablet 325 mg PO TID tab 04/21/17 [History Confirmed 09/02/17] vitamin,calcium,sdiwervg-pjbh-zryaw acid tablet 1 tab PO QDAY 04/21/17 [History Confirmed 09/02/17] metoclopramide 10 mg tablet 10 mg PO TID PRN #60 tab 07/13/17 [Rx Confirmed 09/02/17] promethazine 12.5 mg tablet 12.5 mg PO Q6H PRN #120 tab 07/13/17 [Rx Confirmed 09/02/17] ondansetron HCl 4 mg tablet 4 mg PO Q6H PRN #60 tab 09/02/17 [Rx Confirmed 09/02/17] Last Menstral Period: 04/21/17 Zika: Zika virus screening: Negative : No PFSH PFSH Family History Grandmother Diabetes Social History number of children: 1 current occupational status: employed current occupation: [employer] current occupational exposures/hazards: No Smoking Status: Never smoker second hand exposure: No alcohol intake: never substance use type: does not use caffeine: No what type of physical activity do you participate in: none seatbelt use: always do you feel safe at home: Yes additional social history: Formerly [facility] Pregancy History 2 Elective abortions Hx Para 1 Spontaneous abortions Past Pregnancies Del. DatName GA/WeeksOutcome Route [facility] Seymour Montiel LgAnesthesDel LocaProviderFOB e ht en th ia tn 11/29/14Declan 42 live birNSVD 7 poundsMale epiduralNE th - ful 6 ounc l term HPI 14 WEEKS: Details: HELEN HERMOSILLO is a 31 year old who presents for routine OB visit. OB Visit DINESH Calculator Estimated Delivery Date 02/26/18 Based on Ultrasound Date 07/08/17 Current WG 14w 5d Number 1 Expected Delivery Route/Plan Specific Issue/Plans flu vaccine declined minichart given: yes tdap vaccine: [] rhogam: [] LARC form signed: [] labor support person: Bin pain management: epidural-did not take effect well last delivery cut cord/dad catch: no :yes PP control planned: [] special requests: [] Initial Weight: Not Recorded Date Weight BP Urine PrFHR FuHt Pres MoCTX DilationFetal StVisit NoProviderComments E ot v te GA G Effac lucose ed lb 94/59 175 no vb so me mild 10w 5 cramping d Visit Notes Visit Date: 09/02/17 Still with nausea. No VB, LOF Sasha Fagan SOLUTIONS DEVELOPMENT ANALYST-C on 09/02/17 Still Sasha Fagan NP-C on 09/02/17 Visit Date: 08/05/17 no vb some mild cramping Marilyn Stone MD on 08/05/17 ACOG First Trimester First Trimester: Desire for , Alcohol, Tobacco Cessation, Illicit/Recreational Drug/Substance Use, Intimate Partner Violence, Barriers to care, Unstable Housing, Communication Barriers, Environmental/Work Hazards, Anticipated Course of Care, Toxoplasmosis Precations, Use of Any medications, Sexual activity, Exercise, Dental Care, Sauna/Hot tub use, Seat Belt use, Childbirth classes/Hospital facilities, , Travel, Indications for US and Screening for Aneuploidy Diagnostics Diagnostics Labs Blood Type O NEGATIVE 07/08/17 Antibody Screen NEGATIVE 07/08/17 Hct 37.1 % (37-47) 07/08/17 Hgb 12.7 g/dl (12.0-15.0) 07/08/17 Rubella IgG Antibody 58.6 IU/mL 07/08/17 RPR NONREACTIVE (NONREACTIVE) 07/08/17 Hep Bs Antigen Negative (Negative) 07/08/17 Chlam trachomat DNA PCR Negative (Negative) 07/08/17 N.gonorrhoeae DNA (PCR) Negative (Negative) 07/08/17 Details: HIV: Urine Culture: Sequential Screen: NIPT Screen: Results [id number] Office Urine Glucose Negative Last Edit by Annabelle Small on 09/02/17 08:13 Office Urine Protein Trace Last Edit by Annabelle Small on 09/02/17 08:13 Assessment AND Plan Problems 1. Encounter for supervision of other normal in first trimester Z34.81 PRR DINESH PC Ronald Bin 2. Rh negative status during in first trimester O09.891 Rhogam PRN and at 28 weeks 3. Nausea/vomiting in O21.9 phenergan reglan 4. Group B Streptococcus urinary tract infection affecting in first trimester O23.43 pcn in labor 5. 14 weeks gestation of Z3A.14 Plan Orders placed: zofran Rx; reviewed small meals etc Reviewed symptoms to report ACOG trimester education reviewed and updated See problem list details for updated plan of care Gestational age appropriate handout given RTO: 4 weeks Orders Orders: Medications New: Coding Level of Care Code OB Routine Diagnoses Encounter for supervision of other normal in first trimester Z34.81 Normal : other normal Trimester: first trimester Rh negative status during in first trimester O09.891 Trimester: first trimester Nausea/vomiting in O21.9 Group B Streptococcus urinary tract infection affecting in first trimester O23.43 Trimester: first trimester 14 weeks gestation of Z3A.14 09/02/17 0845 <Electronically signed by Sasha RUTLEDGE> Date Sasha RUTLEDGE Cosigner Signature: Date (if applicable) CC: SALES REPRESENTATIVE [employer] OFFICE VISIT Observed: 08/05/2017 Status: F Source: CHAPARRO REPORT 8:43 AM [facility] [address] [place] [address] OFFICE VISIT Date of Service: 08/05/17 MR#: [id number] Acct: [id number] Name: HELEN HERMOSILLO Rep #: [id number] : 1985 Provider: Marilyn Stone MD Age/Sex: 31/F Location: [facility] [place] Status: Signed Intake Vital Signs08/05/17 Height 5 ft 5 in 08/05/17 Weight: 170 lb 08/05/17 Body Mass Index (BMI) 28.3 08/05/17 Blood Pressure 94/59 Intake Visit Reasons: 10 WEEKS Chief Complaint: est ob Measurement And Verification Engineer Required: No Is patient in pain?: No Allergies codeine Allergy (Intermediate, Verified 08/05/17 08:26) Swelling Medications ferrous sulfate 325 mg (65 mg iron) tablet 325 mg PO TID tab 04/21/17 [History Confirmed 08/05/17] vitamin,calcium,vmphuxcp-zhxl-ptwmo acid tablet 1 tab PO QDAY 04/21/17 [History Confirmed 08/05/17] metoclopramide 10 mg tablet 10 mg PO TID PRN #60 tab 07/13/17 [Rx Confirmed 08/05/17] promethazine 12.5 mg tablet 12.5 mg PO Q6H PRN #120 tab 07/13/17 [Rx Confirmed 08/05/17] Last Menstral Period: 04/21/17 Zika: Zika virus screening: Negative : No PFSH PFSH Family History Grandmother Diabetes Social History number of children: 1 current occupational status: employed current occupation: [employer] current occupational exposures/hazards: No Smoking Status: Never smoker second hand exposure: No alcohol intake: never substance use type: does not use caffeine: No what type of physical activity do you participate in: none seatbelt use: always do you feel safe at home: Yes additional social history: Formerly [facility] Pregancy History 2 Elective abortions Hx Para 1 Spontaneous abortions Past Pregnancies Del. DatName GA/WeeksOutcome Route Bth Seymour Montiel LgAnesthesDel LocaProviderFOB e ht en th ia tn 11/29/14Declan 42 live birNSVD 7 poundsMale epiduralNE th - ful 6 ounc l term HPI 10 WEEKS: Details: HELEN HERMOSILLO is a 31 year old who presents for routine OB visit. OB Visit DINESH Calculator Estimated Delivery Date 02/26/18 Based on Ultrasound Date 07/08/17 Current WG 10w 5d Number 1 Expected Delivery Route/Plan Specific Issue/Plans flu vaccine declined Initial Weight: Not Recorded Date Weight BP Urine PrFHR FuHt Pres MoCTX DilationFetal StVisit NoProviderComments E ot v te GA G Effac lucose ed Visit Notes Visit Date: 08/05/17 no vb some mild cramping Marilyn Stone MD on 08/05/17 ACOG First Trimester First Trimester: , Desire for , Alcohol, Tobacco Cessation, Illicit/Recreational Drug/Substance Use, Intimate Partner Violence, Barriers to care, Unstable Housing, Communication Barriers, Environmental/Work Hazards, Anticipated Course of Care, Nurtrition and weight gain, Toxoplasmosis Precations, Use of Any medications, Sexual activity, Exercise, Dental Care, Sauna/Hot tub use, Seat Belt use, Childbirth classes/Hospital facilities, Travel, Indications for US and Screening for Aneuploidy Diagnostics Diagnostics Labs Blood Type O NEGATIVE 07/08/17 Antibody Screen NEGATIVE 07/08/17 Hct 37.1 % (37-47) 07/08/17 Hgb 12.7 g/dl (12.0-15.0) 07/08/17 Rubella IgG Antibody 58.6 IU/mL 07/08/17 RPR NONREACTIVE (NONREACTIVE) 07/08/17 Hep Bs Antigen Negative (Negative) 07/08/17 Chlam trachomat DNA PCR Negative (Negative) 07/08/17 N.gonorrhoeae DNA (PCR) Negative (Negative) 07/08/17 Details: HIV:neg Urine Culture: gbs Sequential Screen: NIPT Screen: Assessment AND Plan Problems 1. Rh negative status during in first trimester O09.891 Rhogam PRN and at 28 weeks 2. Nausea/vomiting in O21.9 phenergan reglan 3. Group B Streptococcus urinary tract infection affecting in first trimester O23.43; B95.1 pcn in labor 4. Encounter for supervision of other normal in first trimester Z34.81 PRR DINESH PC Ronald Bin 5. 10 weeks gestation of Z3A.10 Plan Orders placed: none ACOG trimester education reviewed and updated. see problem list details for updated plan management information. GA appropriate handout given. Orders Orders: Coding Level of Care Code OB Routine Diagnoses Rh negative status during in first trimester O09.891 Trimester: first trimester Nausea/vomiting in O21.9 Group B Streptococcus urinary tract infection affecting in first trimester O23.43; B95.1 Trimester: first trimester Encounter for supervision of other normal in first trimester Z34.81 Normal : other normal Trimester: first trimester 10 weeks gestation of Z3A.10 08/05/17 0843 <Electronically signed by Marilyn Stone MD> Date Marilyn Stone MD Cosigner Signature: Date (if applicable) CC: CT/NG [facility] BY PCR Collected: 07/08/2017 Status: F Source: EXETER 4:14 PM [facility] REPOSITORY TYPE CODE TESTS RESULT OUT OF RANGE REFERENCE UNITS LAB L8200.2100 Negative Normal Chlam Negative Trac PCR LAB L8200.2200 Negative Normal NG by Negative PCR Performed By: #### L8200.2000, M100.0650 #### [facility] [address] [place], [place], [address] #### L7400.0377 #### [facility] (refer to report for specific site) refer to report for address and phone number Observed: 07/08/2017 Status: F Source: EXETER CULTURE, URINE 4:14 PM [facility] REPOSITORY Urine Culture #2 Below infection level. ORGANISM 1: Streptococcus agalactiae (B) Parker Count 11,000-25,000 ORGANISM 2: Presumptive E. coli Parker Count <1000 Streptococcus agalactiae (B): REACTION Ampicillin $ <=0.25 S Benzylpenicillin NF 0.12 S Ceftriaxone $ <=0.12 S Inducable Clindamycin Resistan - Linezolid $$$$ <=2 S Vancomycin $ 0.5 S (NF) indicates non-formulary drug at [facility]. Approval by Infectious Disease Specialist required before non-formulary drugs may be ordered and/or dispensed. * CLSI guidelines does not recommend testing of cephalosporins. This interpretation is deduced from Beta-lactam/penicillin results. Performed By: #### L8200.2000, M100.0650 #### [facility] [address] [place], [address] #### L7400.0377 #### [facility] (refer to report for specific site) refer to report for address and phone number PAP IG HPV HR Collected: 07/08/2017 Status: F Source: EXETER APTIMA 4:14 PM [facility] REPOSITORY Order Comment: Specimen Comment: No. of containers..01 ThinPrep Vial TYPE CODE TESTS RESULT OUT OF RANGE REFERENCE UNITS LAB L7400.0800 . Normal DIAGN Comment Result Comment: NEGATIVE FOR INTRAEPITHELIAL LESION AND MALIGNANCY. LAB L7400.0900 . Normal ADEQ Comment Result Comment: Satisfactory for evaluation. Endocervical and/or squamous metaplastic cells (endocervical component) are present. LAB L7400.1400 . Normal PERFORM Comment Result Comment: Amanda Bailey, Product Representative LAB L7400.2575 . Normal TEST METHOD Comment Result Comment: This liquid based ThinPrep(R) pap test was screened with the use of an image guided system. LAB L7400.2600 . Normal . COMM LAB L7400.2700 . Normal PAPSMR Comment Result Comment: The Pap smear is a screening test designed to aid in the detection of premalignant and malignant conditions of the uterine cervix. It is not a diagnostic procedure and should not be used as the sole means of detecting cervical cancer. Both false-positive and false-negative reports do occur. LAB L7400.2760 Negative Normal HPV APTIMA, Negative HR Result Comment: This test detects fourteen high-risk HPV types (16/18/31/33/35/39/45/ 51/52/56/58/59/66/68) without differentiation. Performed at: - [facility] [id number] Cooker Cleaner: Cleopatra Mcmillan MD, Phone: [phone] Performed at: = - [facility] [address] [id number] Cooker Cleaner: Cleopatra Mcmillan MD, Phone: [phone] Performed By: #### L8200.2000, M100.0650 #### [facility] [address], [place], [address] #### L7400.0377 #### [facility] (refer to report for specific site) refer to report for address and phone number SALES REPRESENTATIVE RAW FIBERS OFFICE VISIT Observed: 07/08/2017 Status: F Source: EXETER REPORT 10:52 AM [facility] REPOSITORY [facility] [address] [facility] [place] [address] OFFICE VISIT Date of Service: 07/08/17 MR#: [id number] Acct: [id number] Name: HELEN HERMOSILLO Rep #: [id number] : 1985 Provider: Marilyn Stone MD Age/Sex: 31/F Location: [facility] [place] Status: Signed Intake Vital Signs07/08/17 Height 5 ft 5 in 07/08/17 Weight: 164 lb 07/08/17 Body Mass Index (BMI) 27.3 07/08/17 Blood Pressure 99/61 Intake Visit Reasons: New OB Chief Complaint: NEW OB Measurement And Verification Engineer Required: No Is patient in pain?: Yes Allergies codeine Allergy (Intermediate, Verified 07/08/17 09:50) Swelling Medications ferrous sulfate 325 mg (65 mg iron) tablet 325 mg PO TID tab 04/21/17 [History Confirmed 07/08/17] vitamin,calcium,cpsfuxtw-wovu-rxubd acid tablet 1 tab PO QDAY 04/21/17 [History Confirmed 07/08/17] Last Menstral Period: 04/22/18 Zika: Zika virus screening: Negative : No PFSH PFSH Family History Grandmother Diabetes Social History number of children: 1 current occupational status: employed current occupation: [employer] current occupational exposures/hazards: No Smoking Status: Never smoker second hand exposure: No alcohol intake: never substance use type: does not use caffeine: No what type of physical activity do you participate in: none seatbelt use: always do you feel safe at home: Yes additional social history: Formerly [facility] Pregancy History 2 Elective abortions Hx Para 1 Spontaneous abortions Past Pregnancies Del. DatName GA/WeeksOutcome Route Bt WeigInfant GLabor LgAnesthesDel LocaProviderFOB e ht en ia tn 11/29/14Declan 42 live birNSVD 7 poundsMale epiduralNE th - ful 6 ounc l term HPI New OB: Details: HELEN HERMOSILLO is a 31 year old who presents for New OB visit. OB Visit DINESH Calculator Estimated Delivery Date 02/26/18 Based on Ultrasound Date 07/08/17 Current WG 6w 5d Number 1 Comments: by 6 week US Expected Delivery Route/Plan Specific Issue/Plans flu vaccine declined Menstrual History Last Menstral Period: 04/22/18 Reported LMP: definite Normal amount/duration: Yes On hormonal BC at conception: No Antepartum Record Genetic Screening: Congenital Heart Defect: Other, Neural Tube Defect: Other, Hemoglobinopathy Or Carrier: Other, Cystic Fibrosis: Other, Chromosome Abnormality: Other, Rex-Sachs: Other, Hemophilia: Other, Intellectual Disability/Autism: Other, Recurrent Loss/Stillbirth: Other, Other Structural Defect: Other, Other Genetic Disease: Other, Maternal Metabolic Disorder: Other Infection History: Live with someone with TB or Exposed to TB: No, Patient or Partner has history of Genital Herpes: No, Rash or Viral illness since last mentrual period: No, Prior GBS-Infected child: No, History of STD: No, HIV Infection: No, History of Hepatitis: No, Recent travel outside of [place]: No, Concern for Hep exposure: No, Varicella immune: Yes Medical History Medical History: Negative: Diabetes, Hypertension, Heart disease, Auto-immune disorder, Kidney disease/UTI, Neurologic/epilepsy, Psychiatric, Depression/ depression, Hepatitis/liver disease, Varicosities/phlebitis, Thyroid dysfunction, Trauma/domestic violence, History of blood transfusions, D (Rh) Sensitized, Pulmonary (e.g.,TB,Asthma), Seasonal allergies, Drug/latex allergies/reactions, Breast, 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, Operations/hospitalizations, Anesthetic complications, History of abnormal pap, Uterine anomaly/jonatan, Infertility, Anti-retroviral treatment, Relevant family history, Other ACOG First Trimester First Trimester: Discussed ROS Const Denies fever(s), Reports system reviewed and no additional complaints, except as docu, Reports fatigue Eyes Reports system reviewed and no additional complaints, except as docu ENT Reports system reviewed and no additional complaints, except as docu Card Denies chest pain, Denies shortness of breath Resp Reports system reviewed and no additional complaints, except as docu, Denies shortness of breath, Denies cough GI Reports nausea, Denies abdominal pain Reports system reviewed and no additional complaints, except as docu Musc Reports system reviewed and no additional complaints, except as docu Skin/Breast Reports system reviewed and no additional complaints, except as docu Neuro Yes system reviewed and no additional complaints, except as docu Psych Reports system reviewed and no additional complaints, except as docu Endo Reports fatigue, Reports system reviewed and no additional complaints, except as docu Exam Const General: healthy appearing, comfortable, no acute distress Orientation: alert [facility] Head: normal to inspection, atraumatic, normocephalic Ears: external ears normal, hearing grossly normal bilaterally Nose: nares normal, external nose normal Mouth: oral mucosae normal Teeth and gingiva: dentition normal Eyes General: appearance normal, both eyes and all related structures Neck Neck: no lymphadenopathy, supple, normal visual inspection Thyroid: thyroid normal Chest Chest palpation AND inspection: normal inspection of the chest Breast inspection: normal inspection of the breasts, normal inspection of the axillae Breast palpation: normal palpation of the breasts, normal palpation of the axillae Resp Effort AND Inspection: normal respiratory effort GI Inspection: normal to inspection Palpation: soft, no hepatosplenomegaly General: bladder normal to palpation External Female Exam: normal external appearance, normal appearance of the urethra Urethra: normal appearance of the urethra Speculum Exam - Vagina: normal appearance of the vagina, normal vaginal discharge Speculum Exam - Cervix: normal appearance of the cervix Bimanual Exam- Vagina AND Uterus: bladder normal to palpation, normal bimanual exam, uterus non-tender, other Bimanual Exam- Adnexa, other: adnexae non-tender Skin General: no rashes or lesions noted Neuro Motor: muscle tone normal throughout, no movement abnormalities noted Extrem General: normal to inspection, full ROM Assessment AND Plan Problems 1. Rh negative status during in first trimester O09.891; Z67.91 Rhogam PRN and at 28 weeks 2. Encounter for supervision of other normal in first trimester Z34.81 DINESH PC Ronald Bin Plan Patient oriented to practice and discussed care expectations and screenings. ACOG book offered to patient. labs and 19-20 week anatomy ultrasound ordered. Genetic screening offered to patient and patient chose: nt screening Orders Orders: Supplemental Info ACOG book given and patient encouraged to read about nutrition, exercise, weight gain, and food avoidance in . Coding Level of Care Code OB Routine Diagnoses Rh negative status during in first trimester O09.891; Z67.91 Trimester: first trimester Encounter for supervision of other normal in first trimester Z34.81 Normal : other normal Trimester: first trimester 07/08/17 1052 <Electronically signed by Marilyn Stone MD> Date Marilyn Stone MD Cosigner Signature: Date (if applicable) CC: CBC W/DIFF, AUTOMATED Collected: 07/08/2017 Status: F Source: CHAPARRO 10:45 AM [facility] REPOSITORY TYPE CODE TESTS RESULT OUT OF RANGE REFERENCE UNITS LAB L100.1000 4.4-11.0 K/mm3 Normal WBC 5.8 LAB L100.1200 4.2-5.4 M/mm3 Low RBC 4.05 LAB L100.1300 12.0-15.0 g/dl Normal HGB 12.7 LAB L100.1400 37-47 % Normal HCT 37.1 LAB L100.1500 81-99 fL Normal MCV 91.6 LAB L100.1600 27.0-32.0 pg Normal MCH 31.4 LAB L100.1700 32-36 g/gl Normal MCHC 34.2 LAB L100.1810 11.6-14.6 % Normal RDW CV 12.2 LAB L100.1820 35.1-43.9 fl Normal RDW SD 39.8 LAB L100.1900 150-450 K/mm3 Normal PLT 194 LAB L100.2000 6.2-12.0 fl Normal MPV 10.6 LAB L100.2100 47-70 % Normal NEUT% 67.8 LAB L100.2200 19-41 % Normal LY% 24.5 LAB L100.2300 0-10 % Normal MONO% 6.4 LAB L100.2400 0-5 % Normal EO% 0.5 LAB L100.2500 0-1 % Normal BASO% 0.3 LAB L100.2550 0.0-0.9 % Normal IM GRAN % 0.500 Result Comment: IG% - Immature Granulocytes (promyelocytes, myelocytes and metamyelocytes) > 1% indicates that a LEFT SHIFT is Present. LAB L100.2620 2.0-7.7 X10 3/uL Normal Absolute Neut 3.9 LAB L100.2720 0.83-4.51 X10 3/ul Normal Absolute Lymph 1.41 Performed By: #### L100.0100 #### [facility] [address] [place], [place], [address] RUBELLA IGG Collected: 07/08/2017 Status: F Source: EXETER 10:45 [facility] REPOSITORY TYPE CODE TESTS RESULT OUT OF RANGE REFERENCE UNITS LAB L509.4000 IU/mL Normal Rubella IgG 58.6 Result Comment: Antibody results Interpretation of Immune Status < 5 IU/ml Presumed Non-immune 5 - < 10 IU/ml Equivocal > or = 10 IU/ml Presumed Immune Performed By: #### L509.4000, L3890.6005, L700.5000 #### [facility] [address] [facility] [place], [place], [address] HIV - [facility] Collected: 07/08/2017 Status: F Source: EXETER 10:45 [facility] REPOSITORY TYPE CODE TESTS RESULT OUT OF RANGE REFERENCE UNITS LAB L3890.6005 Nonreactive Normal HIV - [facility] Non-Reactive Performed By: #### L509.4000, L3890.6005, L700.5000 #### [facility] [address] [place], [address] RAPID PLASMIN REAGIN Collected: 07/08/2017 Status: F Source: EXETER (RPR) 10:45 AM [facility] REPOSITORY TYPE CODE TESTS RESULT OUT OF REFERENCE UNITS RANGE LAB L700.5000 NONREACTIVE NONREACTIVE Normal RPR Performed By: #### L509.4000, L3890.6005, L700.5000 #### [facility] [address] [place] [address], [address] TYPE AND SCREEN Collected: 07/08/2017 Status: F Source: CHAPARRO 10:45 AM [facility] REPOSITORY Order Comment: Reason for Type AND Screen/Red Cells: TYPE CODE TESTS RESULT OUT OF RANGE REFERENCE UNITS LAB B10.0800 O Normal BLOOD TYPE GEL NEGATIVE LAB B100.4000 Normal Antibody NEGATIVE Screen Performed By: #### B101.7450 #### [facility] [address] [place] [address], [address] #### L3100.0390 #### [facility] (refer to report for specific site) refer to report for address and phone number HEPATITIS B SURFACE Collected: 07/08/2017 Status: F Source: CHAPARRO AG 10:45 AM [facility] REPOSITORY TYPE CODE TESTS RESULT OUT OF RANGE REFERENCE UNITS LAB L3100.0400 Negative Normal HB Negative SURF AG Result Comment: Performed at: - [facility] [id number] Cooker Cleaner: David Morrow PhD, Phone: [phone] Performed By: #### B101.7450 #### [facility] [address] [place] [address], [address] #### L3100.0390 #### [facility] (refer to report for specific site) refer to report for address and phone number HCG TITER QUANT., Collected: 06/26/2017 Status: F Source: [place]AP[place]O SERUM 1:13 PM [facility] REPOSITORY TYPE CODE TESTS RESULT OUT OF RANGE REFERENCE UNITS LAB L700.8000 <9 non-preg mIU/mL High HCG 86478 QUANT. Performed By: #### L700.8000 #### [facility] [address], [address] ALLERGIES ALLERGIES DATE TYPE / CODE NAME / CODE REACTION SEVERITY SOURCE 05/27/2018 Drug codeine/F006 Swelling [place] [facility] Allergy/4160 [id number]([facility] [address](SNOMED M) Repository CT) ENCOUNTERS ENCOUNTERS ADMIT/DISCHARGE ACCOUNT ADMITTING ENCOUNTER LOCATION SOURCE NUMBER CLASS 06/03/2018 [id number] Ambulatory BMSBuilding:B Chaparro [address] [facility] Repository 06/03/2018/ [id number] Ambulatory [place] Chaparro 9 8 [facility] ing:SDCRoom: Repository AC18 06/01/2018 [id number] Ambulatory [place] Chaparro 0 [facility] ing:US Repository 05/28/2018 [id number] Ambulatory [place] 1 [facility] ing:[facility] Repository 05/27/2018/ [id number] Ambulatory BMSBuilding:B [place] [address] Repository 04/16/2018/ [id number] Ambulatory BMSBuilding:B [place] [address] Repository 03/05/2018 [id number] Bertha, Ambulatory BMSBuilding:B [place]arro 9 Marilyn [facility] Repository 03/05/2018 [id number] Bertha, Ambulatory BMSBuilding:B Chaparro 1 Mar[place]n [facility] Repository 03/05/2018 [id number] Bertha, Ambulatory BMSBuilding:B Chaparro 1 Marilyn [facility] Repository 03/05/2018/ [id number] Bertha, Inpatient Chaparro [place] 8 2 Marilyn Encounter [facility] ing:WPRoom: Repository PX897Dix: 1 03/02/2018/ [id number] Ambulatory BMSBuilding:B [place] 8 0 [facility] Repository 02/25/2018/ [id number] Ambulatory BMSBuilding:B Chaparro 8 5 [facility] Repository 02/20/2018 [id number] Ambulatory BMSBuilding:B Chaparro 4 [facility] Repository 02/18/2018 [id number] Ambulatory BMSBuilding:B Chaparro 6 [facility] Repository 02/17/2018/ [id number] Ambulatory [place] Chaparro 8 5 [facility] ing:WPOUTRoom Repository : WP013 02/17/2018/ [id number] Ambulatory BMSBuilding:B Chaparro [address] [facility] Repository 02/10/2018/ [id number] Ambulatory BMSBuilding:B Chaparro [address] Repository 02/03/2018/ [id number] Ambulatory BMSBuilding:B [place] 8 1 [facility] Repository 01/26/2018/ [id number] Ambulatory BMSBuilding:B Chaparro [address] Repository 01/12/2018/ [id number] Ambulatory BMSBuilding:B Chaparro [address] [facility] Repository 12/28/2017/ [id number] Ambulatory BMSBuilding:B Chaparro 8 2 [facility] Repository 12/15/2017/ [id number] Ambulatory BMSBuilding:B [place] 8 1 [facility] Repository 12/01/2017 [id number] [facility]ulatory [place] [facility] 3 [facility] Repository 12/01/2017 [id number] Ambulatory Chaparro Chaparro 9 [facility] ing:POLAB3 Repository 12/01/2017/ [id number] Ambulatory BMSBuilding:B [place] 8 2 [facility] Repository 11/19/2017/ [id number] Ambulatory BMSBuilding:B Chaparro [address] [facility] Repository 10/29/2017/ [id number] Ambulatory BMSBuilding:B [place] [address] Repository 10/08/2017/ [id number] Ambulatory BMSBuilding:B [place] [address] [facility] Repository 10/08/2017 [id number] Ambulatory [place] Chaparro 0 [facility] ing:US Repository 09/02/2017/ [id number] Ambulatory BMSBuilding:B Chaparro [address] [facility] Repository 08/05/2017/ [id number] Ambulatory BMSBuilding:B Chaparro [address] [facility] Repository 07/08/2017 [id number] Ambulatory Elver[place] Elverta 8 [facility] ing:LAB Repository 07/08/2017/ [id number] Ambulatory BMSBuilding:B [place] [address] [facility] Repository 06/26/2017 [id number] Ambulatory Chaparro Chaparro 1 [facility] ing:LAB Repository PAYERS PAYERS ENCOUNTER GUARANTOR PAYER SUBSCRIBER SOURCE 06/03/2018 HELEN Jessica Primary BIN [place]arro [id number] NUPP Insurance:HEALTH PLAN PUTNEYDOB: [facility] [id number] [id number]: (402) VALLEYPolicy Number: Repository [phone] () [id number] Date: [place], [place] [address]GJ: 06/03/2018 Secondary NOT GIVENUNK [place] Insurance:SELF PAY [facility] Number: Effective Repository Date:2018-06-03 06/03/2018 HELEN Lopez Primary BIN [place] [id number] NUPP Insurance:HEALTH PLAN PUTNEYDOB: [facility] [id number] [place] [id number]: (402) VALLEYPolicy Number: Repository [phone] () [id number] Date: [place], [place] [address]YL: 06/03/2018 Secondary NOT GIVENUNK Chaparro Insurance:SELF PAY [facility] Number: Effective Repository Date:2018-06-01 06/01/2018 HELEN Lopez Primary NOT GIVENUNK [place] [id number] NUPP Insurance:SELF PAY [place] [id number]: (402) Number: Effective Repository [phone] () Date:2018-05-31 05/28/2018 HELEN Lopez Primary BIN [place] [id number] NUPP Insurance:HEALTH PLAN PUTNEYDOB[facility] [id number] [place] [id number]: (402) VALLEYPolicy Number: Repository [phone] () [id number] Date: [facility], [place] [address]BL: 05/28/2018 Secondary NOT GIVENUNK [place] Insurance:SELF PAY [facility] Number: Effective Repository Date:2018-05-28 05/27/2018 HELEN Lopez Primary BIN [place] [id number] NUPP Insurance:HEALTH PLAN PUTNEYDOB: [facility] [id number] Hospital [address]Itq: (402) VALLEYPolicy Number: Repository [phone] () [id number] Date: [facility], [place] [address]XD: 05/27/2018 Secondary NOT GIVENUNK [place] Insurance:SELF PAY [facility] Number: Effective Repository Date:2018-05-27 04/16/2018 HELEN Lopez Primary BIN [place] [id number] NUPP Insurance:HEALTH PLAN PUTNEYDOB: [facility] [id number] Hospital [address]Anw: (402) VALLEYPolicy Number: Repository [phone] () [id number] Date: [facility], [place] [address]WZ: 04/16/2018 Secondary NOT GIVENUNK [place] Insurance:SELF PAY [facility] Number: Effective Repository Date:2018-04-16 03/05/2018 HELEN Lopez Primary BIN [place] [id number] NUPP Insurance:HEALTH PLAN PUTNEYDOB: [facility] [id number] Hospital [address]Uar: (402) VALLEYPolicy Number: Repository [phone] () [id number] Date: [place], [place] [address]JZ: 03/05/2018 Secondary NOT GIVENUNK [place] Insurance:SELF PAY [facility] Number: Effective Repository Date:2018-03-05 03/05/2018 HELEN Lopez Primary BIN [place] [id number] NUPP Insurance:HEALTH PLAN PUTNEYDOB: [facility] [id number] Hospital [address]Ghg: (402) VALLEYPolicy Number: Repository [phone] () [id number] Date: [place], [place] [address]ZZ: 03/05/2018 Secondary NOT GIVENUNK [place] Insurance:SELF PAY [facility] Number: Effective Repository Date:2018-03-05 03/05/2018 HELEN Lopez Primary BIN [place] [id number] NUPP Insurance:HEALTH PLAN PUTNEYDOB: [facility] [id number] Hospital [address]Wye: (402) VALLEYPolicy Number: Repository [phone] () [id number] Date: [place], [place] [address]XH: 03/05/2018 Secondary NOT GIVENUNK [place] Insurance:SELF PAY [facility] Number: Effective Repository Date:2018-03-05 03/05/2018 HELEN Lopez Primary BIN [place] [id number] NUPP Insurance:HEALTH PLAN PUTNEYDOB: [facility] [id number] Hospital [address]Ptg: (402) VALLEYPolicy Number: Repository [phone] () [id number] Date: [place], [place] [address]EV: 03/05/2018 Secondary NOT GIVENUNK [place] Insurance:SELF PAY [facility] Number: Effective Repository Date:2018-03-05 03/02/2018 HELEN Lopez Primary BIN [place] [id number] NUPP Insurance:HEALTH PLAN PUTNEYDOB: [facility] [id number] Hospital [address]Dpc: (402) VALLEYPolicy Number: Repository [phone] () [id number] Date: [place], [place] [address]AI: 03/02/2018 Secondary NOT GIVENUNK Chaparro Insurance:SELF PAY [facility] Number: Effective Repository Date:2018-03-02 02/25/2018 HELEN Lopez Primary BIN [place] [id number] NUPP Insurance:HEALTH PLAN PUTNEYDOB: [facility] [id number] Hospital [address]Zbu: (402) VALLEYPolicy Number: Repository [phone] () [id number] Date: [place], [place] [address]NU: 02/25/2018 Secondary NOT GIVENUNK [place] Insurance:SELF PAY [facility] Number: Effective Repository Date:2018-02-25 02/20/2018 HELEN Lopez Primary NOT GIVENUNK [place] [id number] NUPP Insurance:SELF PAY [facility] [address]Wer: (402) Number: Effective Repository [phone] () Date:2018-02-20 02/18/2018 HELEN Lopez Primary BIN [place] [id number] NUPP Insurance:HEALTH PLAN PUTNEYDOB: [facility] [id number] Hospital [address]Dpv: (402) VALLEYPolicy Number: Repository [id number] () [id number] Date: [place], [place] [address]PC: 02/18/2018 Secondary NOT GIVENUNK Chaparro Insurance:SELF PAY [facility] Number: Effective Repository Date:2018-02-18 02/17/2018 HELEN Lopez Primary BINLILIYA [place] [id number] NUPP Insurance:HEALTH PLAN PUTNEYDOB[facility] [id number] Hospital [address]Mgq: (402) VALLEYPolicy Number: Repository [phone] () [id number] Date: [place], [place] [address]QY: 02/17/2018 Secondary NOT GIVENUNK Chaparro Insurance:SELF PAY [facility] Number: Effective Repository Date:2018-02-17 02/17/2018 HELEN Lopez Primary BIN [place] [id number] NUPP Insurance:HEALTH PLAN PUTNEYDOB: [facility] [id number] Hospital [address]Gvi: (402) VALLEYPolicy Number: Repository [phone] () [id number] Date: [place], [place] [address]FP: 02/17/2018 Secondary NOT GIVENUNK Chaparro Insurance:SELF PAY [facility] Number: Effective Repository Date:2018-01-26 02/10/2018 HELEN Lopez Primary BIN [place] [id number] NUPP Insurance:HEALTH PLAN PUTNEYDOB: [facility] [id number] Hospital [address]Vlj: (402) VALLEYPolicy Number: Repository [phone] () [id number] Date: [place], [place] [address]NT: 02/10/2018 Secondary NOT GIVENUNK [place] Insurance:SELF PAY [facility] Number: Effective Repository Date:2018-02-10 02/03/2018 HELEN Lopez Primary BIN [place] [id number] NUPP Insurance:HEALTH PLAN PUTNEYDOB: [facility], [facility] [id number] Hospital [address]Pyb: (402) VALLEYPolicy Number: Repository [phone] () [id number] Date: [place], [place] [address]GU: 02/03/2018 Secondary NOT GIVENUNK [place] Insurance:SELF PAY [facility] Number: Effective Repository Date:2018-02-03 01/26/2018 HELEN Lopez Primary BIN [place] [id number] NUPP Insurance:HEALTH PLAN PUTNEYDOB: [facility] [id number] [place] [id number]: (402) VALLEYPolicy Number: Repository [phone] () [id number] Date: [place], [place] [address]IY: 01/26/2018 Secondary NOT GIVENUNK Chaparro Insurance:SELF PAY [facility] Number: Effective Repository Date:2018-01-26 01/12/2018 HELEN Lopez Primary BIN [place] [id number] NUPP Insurance:HEALTH PLAN PUTNEYDOB: [facility] [id number] Hospital [address]Htk: (402) VALLEYPolicy Number: Repository [phone] () [id number] Date: [place], [place] [address]GP: 01/12/2018 Secondary NOT GIVENUNK [place] Insurance:SELF PAY [facility] Number: Effective Repository Date:2018-01-11 12/28/2017 HEELN Lopez Primary BIN [place] [id number] NUPP Insurance:HEALTH PLAN PUTNEYDOB: [facility] [id number] Hospital [address]Wpd: (402) VALLEYPolicy Number: Repository [phone] () [id number] Date: [place], [place] [address]SK: 12/28/2017 Secondary NOT GIVENUNK [place] Insurance:SELF PAY [facility] Number: Effective Repository Date:2017-12-28 12/15/2017 HELEN Lopez Primary BIN [place] [id number] NUPP Insurance:HEALTH PLAN PUTNEYDOB: [facility] [id number] Hospital [address]Ymb: (402) VALLEYPolicy Number: Repository [phone] () [id number] Date: [facility] [place] [address]DF: 12/15/2017 Secondary NOT GIVENUNK [place] Insurance:SELF PAY [facility] Number: Effective Repository Date:2017-12-15 12/01/2017 HELEN Lopez Primary BIN [place] [id number] NUPP Insurance:HEALTH PLAN PUTNEYDOB: [facility] [id number] Hospital [address]Jcu: (402) VALLEYPolicy Number: Repository [phone] () [id number] Date: [facility] W [address]HD: 12/01/2017 Secondary NOT GIVENUNK Chap[place] Insurance:SELF PAY [facility] Number: Effective Repository Date:2017-12-01 12/01/2017 HELEN Lopez Primary BIN [place] [id number] NUPP Insurance:HEALTH PLAN PUTNEYDOB: [facility] [id number] Hospital [address]Jhl: (402) VALLEYPolicy Number: Repository [phone] () [id number] Date: [facility] [address]JK: 12/01/2017 Secondary NOT GIVENUNK [place] Insurance:SELF PAY [facility] Number: Effective Repository Date:2017-12-01 12/01/2017 HELEN Lopez Primary BIN [place] [id number] NUPP Insurance:HEALTH PLAN PUTNEYDOB: [facility] [id number] Hospital 10[address]Mxj: (402) VALLEYPolicy Number: Repository [phone] () [id number] Date: [place] [address]VU: 12/01/2017 Secondary NOT GIVENUNK [place] Insurance:SELF PAY [facility] Number: Effective Repository Date:2017-11-30 11/19/2017 HELEN Lopez Primary BIN [place] [id number] NUPP Insurance:HEALTH PLAN PUTNEYDOB: [facility] DRWOOER, [facility] [id number] Hospital [address]Gnv: (402) VALLEYPolicy Number: Repository [phone] () [id number] Date[facility] [place] [address]XB: 11/19/2017 Secondary NOT GIVENUNK [place] Insurance:SELF PAY [facility] Hospital Number: Effective Repository Date:2017-11-19 10/29/2017 HELEN Lopez Primary BIN [place] [id number] NUPP Insurance:HEALTH PLAN PUTNEYDOB: [facility] [id number] Hospital [address]Vai: (402) VALLEYPolicy Number: Repository [phone] () [id number] Date: [facility], [place] [address]IA: 10/29/2017 Secondary NOT GIVENUNK [place] Insurance:SELF PAY [facility] Number: Effective Repository Date:2017-10-29 10/08/2017 HELEN Lopez Primary BIN [place] [id number] NUPP Insurance:HEALTH PLAN PUTNEYDOB: [facility] [id number] Hospital [address]Pfp: (402) VALLEYPolicy Number: Repository [phone] () [id number] Date: [facility], [place] [address]ZE: 10/08/2017 Secondary NOT GIVENUNK [place] Insurance:SELF PAY [facility] Number: Effective Repository Date:2017-10-08 10/08/2017 HELEN Lopez Primary BIN [place] [id number] NUPP Insurance:HEALTH PLAN PUTNEYDOB: [facility] 2089-10-56SCS Hospital [address]Uyo: (402) VALLEYPolicy Number: Repository [phone] () [id number] Date: [place], [place] [address]WP: 10/08/2017 Secondary NOT GIVENUNK [place] Insurance:SELF PAY [facility] Number: Effective Repository Date:2017-08-18 09/02/2017 HELEN Lopez Primary BIN [place] [id number] NUPP Insurance:HEALTH PLAN PUTNEYDOB: [facility] [id number] [place] [id number]: (402) VALLEYPolicy Number: Repository [phone] () [id number] Date: [place], [place] [address]ZV: 09/02/2017 Secondary NOT GIVENUNK [place] Insurance:SELF PAY [facility] Number: Effective Repository Date:2017-09-02 08/05/2017 HELEN Lopez Primary BIN [place] [id number] NUPP Insurance:HEALTH PLAN PUTNEYDOB: [facility] [id number] Hospital [address]Wab: (402) VALLEYPolicy Number: Repository [phone] () [id number] Date: [place], [place] [address]QV: 08/05/2017 Secondary NOT GIVENUNK [place] Insurance:SELF PAY [facility] Hospital Number: Effective Repository Date:2017-08-05 07/08/2017 HELEN Lopez Primary BIN [place] [id number] NUPP Insurance:HEALTH PLAN PUTNEYDOB: [facility] [id number] [place] [id number]: (402) VALLEYPolicy Number: Repository [phone] () [id number] Date: [place]FINO MOR[place] [address]VN: 07/08/2017 Secondary NOT GIVENUNK [place] Insurance:SELF PAY [facility] Number: Effective Repository Date:2017-07-08 07/08/2017 HELEN Lopez Primary BIN [place] [id number] NUPP Insurance:HEALTH PLAN PUTNEYDOB: [facility], [facility] [id number] [place] [id number]: (402) VALLEYPolicy Number: Repository [phone] () [id number] Date: [facility] [place] [address]KD: 07/08/2017 Secondary NOT GIVENUNK Chap[place] Insurance:SELF PAY [facility] Number: Effective Repository Date:2017-06-29 06/26/2017 HELEN Lopez Primary BIN [place] [id number] NUPP Insurance:HEALTH PLAN PUTNEYDOB: [facility], [facility] [id number] Hospital [address]Qmr: (402) VALLEYPolicy Number: Repository [phone] () [id number] Date: Mia MORENO [address]HI: 06/26/2017 Secondary NOT GIVENUNK [place] Insurance:SELF PAY [facility] Number: Effective Repository Date:2017-06-26
== END 2018-06-03 19:24 | disposition home or self-care (01) ==
LOC: SDC 13:59 → AC 14:00
PROVIDERS: Family Provider Family Medicine; PCP Family Medicine; Referring Provider Obstetrics & Gynecology; Visit Provider Obstetrics & Gynecology
PROC: (CPT 58661; principal; 2018-06-03 15:15)
DX: T83.39XA Other mechanical complication of intrauterine contraceptive device, initial encounter (principal); T83.32XA Displacement of intrauterine contraceptive device, initial encounter; Z30.2 Encounter for sterilization; Y76.8 Miscellaneous obstetric and gynecological devices associated with adverse incidents, not elsewhere classified; Y92.9 Unspecified place or not applicable
CPT/HCPCS: 00840; 58562; 58661; 81025; 85027; 86850; 86900; 88302; J7120; J2405

== ENCOUNTER → 2019-09-27 08:55 | Outpatient (CLI) | payer BC, SELFPAY ==
[2018-07-20 07:34] VITALS: BMI 27.6
--- NOTE | 2019-09-27 08:56 | BI_ITS ---
MAMMOGRAPHY - BILATERAL DIAGNOSTIC REASON FOR EXAM: Female, 34 years old. Left breast nipple discharge with soreness for one week. PERTINENT HISTORY: Non-contributory. TECHNIQUE: Digital bilateral breast keerthi (3D mammographic acquisition) in the CC and MLO projections. 2-D mediolateral oblique (MLO) and craniocaudad (CC) views of both breasts were obtained. CAD: Full Field Digital Mammography with Computer Added Detection was performed. COMPARISON: Comparison is made with prior examination dated December 01, 2017. FINDINGS: Breast Composition: The breasts are extremely dense, which lowers the sensitivity of mammography. There are no dominant masses or suspicious calcifications. Small benign-appearing axillary lymph nodes. No other significant abnormalities are identified. There has been no significant change since the prior study. BI/DIAG MAMM W/CAD, BILAT IMPRESSION: Stable bilateral diagnostic mammogram. With the patient''s history of a left breast discharge, correlation with ultrasound is recommended. ASSESSMENT CATEGORY: BIRADS Category 0: Incomplete. Need additional imaging evaluation. A letter regarding these results will be sent to the patient by the facility within 30 days. Approximately 10% of breast cancers are not detected by mammography. A normal mammogram should not delay biopsy of a clinically suspicious abnormality. Electronically Signed: Truman Mandujano, at 10:03 EDT , Service support ,
--- NOTE | 2019-09-27 08:56 | US_ITS ---
STUDY: ULTRASOUND BREAST - LEFT REASON FOR EXAM: Female, 34 years old. Nipple discharge in the left breast. TECHNIQUE: Axial and longitudinal images of the LEFT breast were performed with a high resolution ultrasound transducer. # OF IMAGES: 20 COMPARISON: Comparison is made with prior mammogram done earlier in the day. FINDINGS: LEFT Breast: Mild degree of the dilated retroareolar ducts. US/Breast Limited Unilateral IMPRESSION: Mild degree of dilated retroareolar ducts. ASSESSMENT CATEGORY: BIRADS Category 2: Benign. A letter regarding these results will be sent to the patient by the facility within 30 days. Electronically Signed: Truman Mandujano, at 10:50 EDT , Service support ,
== END ==
PROVIDERS: PCP Family Medicine; Referring Provider Obstetrics & Gynecology; Visit Provider Obstetrics & Gynecology
DX: N64.52 Nipple discharge (principal)
CPT/HCPCS: 76642; 77062; 77066; G0279

== ENCOUNTER → 2020-02-16 10:57 | Outpatient (CLI) | payer BC, SELFPAY ==
[2020-02-16 10:49] VITALS: BMI 27.6
[2020-02-16 11:59] LABS: Thyroid Stim Hormone (TSH) 1.55 uIU/mL (0.358-3.74)
== END ==
PROVIDERS: PCP Family Medicine; Referring Provider Nurse Practitioner Women's Health; Visit Provider Nurse Practitioner Women's Health
DX: Z13.29 Encounter for screening for other suspected endocrine disorder (principal)
CPT/HCPCS: 36415; 84443

== ENCOUNTER → 2020-03-26 18:30 | Outpatient (CLI) | payer BC, SELFPAY ==
[2020-02-16 10:49] VITALS: BMI 27.6
--- NOTE | 2020-03-26 18:28 | US_ITS ---
STUDY: ULTRASOUND OF THE FEMALE PELVIS - COMPLETE REASON FOR EXAM: Female, 34 years old. Pelvic pain and pressure LMP: 03/07/2020 TECHNIQUE: Transvaginal TECHNICAL QUALITY: Adequate. COMPARISON: None. FINDINGS: The uterus is anteverted and is in a midline position. The uterus measures 8.3 x 4.2 x 5.6 cm. Normal uterine cervix. The endometrium measures 9.1 mm in thickness, and is hyperechoic. There is no demonstrated endometrial mass. There is no demonstrated myometrial mass. I.U.D. - The patient does not have an I.U.D. The right ovary is visualized. The right ovary measures 3.2 x 2.3 x 2.0 cm. There is a 1.4 x 1.1 x 1.2 cm complex right ovarian cyst. There is normal arterial and normal venous vascularity. The left ovary is visualized. The left ovary measures 2.0 x 1.6 x 1.0 cm. There is no left ovarian cyst or ovarian mass. There is no visualized left adnexal mass or complex lesion. There is normal arterial and normal venous vascularity. There is no fluid in the cul-de-sac. Polycystic ovary disease: No. US/Transvaginal Non- IMPRESSION: 1.4 x 1.1 x 1.2 cm complex right ovarian cyst, may reflect a an endometrioma or hemorrhagic cyst. Electronically Signed: Sanam Mckinnon MD at 20:05 EST Tel , Service support ,
== END ==
PROVIDERS: PCP Family Medicine; Referring Provider Nurse Practitioner Women's Health; Visit Provider Nurse Practitioner Women's Health
DX: R10.2 Pelvic and perineal pain (principal)
CPT/HCPCS: 76830

== ENCOUNTER 2023-09-03 08:00 | Outpatient (RCR) | payer OTHER, SELFPAY ==
--- NOTE | 2023-06-26 12:58 | HP.OTEVAL ---
Patient's Visit Information Visit Information Visit Information: HELEN HERMOSILLO is a 37 year old F, referred to Occupational Therapy by LILY FLORIAN, with a diagnosis of dx of closed displaced fx of the middle phalanx of middle finger.. Date of Evaluation: 06/24/23 Occupational Therapist: Aury Lang, OTR/Phani, CHT Subjective Subjective: This 37 year old female was seen for OT eval with dx of closed displaced fx of the middle phalanx of middle finger. pt states DOI was 05/12/23. pt states after injury she went to a quick clinic and was place in splint. She went to [facility] and was referred to [facility] but the surgeon was out until mid May. pt then was seen at [facility]. pt states surgery date for pinning 05/19/23 had pin removed 06/23/23 pt arrives with hand based orthosis denies need for adj. pt states she would like to return to using her right hand for all ADLS and IADLs Pain right hand: Current Pain Intensity: 3 Pain Intensity Range: 2 and 4 ROM MP: right MF +15/70 PIP: right MF -15/45 DIP: right MF -15//15 Strength Strength Comments: will test strength at later date Edema PIP: right 7.5 left 6.5 Sensation Sensation Comments: tingling at tip of finger Quick DASH-Disab of Arm,Shoulder& Hand Quick DASH Score: 56.6650 Goals Goal:100% adherence to protocol: Yes Comment: Pinning of phalanx fx. Goal:Daily scar massage when approriate: Yes Goal:ROM equal to unaffected hand: Yes Goal:Tobacco Wrapping Machine Tender/Pinch strength at least 75% of unaffected hand: Yes Comment: will initiate at later date-6-8 weeks Goal:No pain with affected hand use: Yes Goal:Full use of affected hand in daily activities including work: Yes Goal:Decrease scar hypersensitivity: Yes Rehabilitation General Assessment: Pt arrives having pin remove yesterday. pt states she is feeling good- pt is is demo with newly healing structures, limited ROM that limits pts use of right hand for ADls and IADls. pt would benefit from skilled OT services 2-3x week for 8 weeks. Today therapist ed, pt on POC edema control, initiation of tendon glides as well as care for where pin sit. Pt demo understanding and agree to POC. Rehabilitation Potential: Good Anticipated Interventions Anticipated Interventions: A/AAROM/PROM, Strengthening, Edema Control, Scar Care, Triggerpoint Release, Desensitization, Sensory Retraining, Modalities, Orthoses, Joint Protection/Energy Conservation, Ergonomic Education, Education re Diagnosis and Home Program Visit Plan Frequency: 2-3x /Week Duration: 2 Months TEXT: Thank you for the opportunity to evaluate your patient. For Medicare and Medicare HMO plans, please review the plan of care and approve it. It will need to be FAXED BACK to us at [phone] for Medicare purposes. Please let me know if there are questions or concerns regarding this plan of care. Physician Signature: Date:
--- NOTE | 2023-07-27 16:04 | HP.OTREVAL ---
Re-Evaluation Intro: LILY FLORIAN, It has been my pleasure to treat HELEN HERMOSILLO over the last 10 visits for dx of closed displaced fx of the middle phalanx of middle finger.. Please see the progress note below for an update on the occupational therapy plan of care! Subjective Subjective: pt arrives states she is doing more with her right hand- pt states she is trying to continue using her hand as much as possible. Objective Objective/Function: right MF PIP -20/80 following therapy pt can reach 90* of flexion- Passively right MF PIP can be reduced to 0 with ext. pt is working of reverse blocking to strength extensors. pt is wearing orthosis at night to support extensor lag. pt working on PROM for flexion and blocking flexion as well as Prolonged stretch- right MF DIP -10/25 right computer forwarding system markup clerk strength 25# pt is making gains towards goals. Plan Plan Frequency: 2-3x /Week Duration: 2 Months Plan: test computer forwarding system markup clerk strength initiate BTE to increase computer forwarding system markup clerk strength Goals Goals Patient Goals: Regain Mobility, Decrease Pain, Decrease Swelling/Stiffness, Improve Fine Motor Skills and Use Hand/Wrist/Arm Normally Again Goal:100% adherence to protocol: Yes Goal:Daily scar massage when approriate: Yes Goal:ROM equal to unaffected hand: Yes Goal:Training And Development Rep/Pinch strength at least 75% of unaffected hand: Yes Goal:No pain with affected hand use: Yes Goal:Full use of affected hand in daily activities including work: Yes Goal:Decrease scar hypersensitivity: Yes Anticipated Interventions Anticipated Interventions Anticipated Interventions: A/AAROM/PROM, Strengthening, Edema Control, Scar Care, Triggerpoint Release, Desensitization, Sensory Retraining, Modalities, Orthoses, Joint Protection/Energy Conservation, Ergonomic Education, Education re Diagnosis and Home Program Re-Evaluation Ending Re-evaluation ending: Please do not hesitate to contact me at [phone] by phone or if you have questions or concerns regarding this new plan of care! Sincerely, SEBASTIEN Rivas/Phani, CHT
--- NOTE | 2023-09-03 08:23 | HP.OTDCSUM_ITS ---
Discharge Summary D/C Summary: It has been my pleasure to treat HELEN HERMOSILLO under orders from LILY FLORIAN, for the diagnosis of dx of closed displaced fx of the middle phalanx of middle finger. for a total of 14 visit(s). Please see the following information for a summary of their discharge status. Overall Improvement % Improvement: 90 Objective Objective/Function: right MF PIP -10/90 right MF PIP 90* flexion right MF DIP 25* flexion right 40# left 55# pt has made good gains with her ROM and strength- pt has met goals and states she is ready for D/C. Goals Patient Goals: Regain Mobility, Decrease Pain, Decrease Swelling/Stiffness, Improve Fine Motor Skills and Use Hand/Wrist/Arm Normally Again Goal:100% adherence to protocol: Yes Goal:Daily scar massage when approriate: Yes Goal:ROM equal to unaffected hand: Yes Goal:Retirement Plan Counselor/Pinch strength at least 75% of unaffected hand: Yes Goal:No pain with affected hand use: Yes Goal:Full use of affected hand in daily activities including work: Yes Goal:Decrease scar hypersensitivity: Yes Plan Plan: D/C D/C Information Discharge Comments: pt was seen for 14 OT sessions- she made good gains with her ROM and strength- pt will continue to work on tight composite fist and return to use as rachid. with daily tasks. pt agrees with D.C and states she will cont. with HEP. d/c sentence: If there are questions or concerns regarding this patient's occupational therapy, please fell free to call me at [phone]. Thank you for the referral of this patient. Sincerely, Aury Lang, OTR/L, CHT
== END 2023-09-03 09:16 | disposition home or self-care (01) ==
LOC: OT 08:00
PROVIDERS: PCP Family Medicine
DX: S62.622D Displaced fracture of middle phalanx of right middle finger, subsequent encounter for fracture with routine healing (principal)
CPT/HCPCS: 97110; 97140; 97166; 97530

== ENCOUNTER → 2023-10-07 | Outpatient (CLI) | payer OTHER, SELFPAY ==
[2023-10-13 15:08] LABS: HPV APTIMA, High Risk Negative (Negative)
== END | disposition home or self-care (01) ==
LOC: LABSPEC 10:37
PROVIDERS: PCP Family Medicine; Referring Provider Nurse Practitioner Women's Health; Visit Provider Nurse Practitioner Women's Health
DX: Z12.4 Encounter for screening for malignant neoplasm of cervix (principal)
CPT/HCPCS: 87624; 88175; G0145